=== PATIENT | female | born 1930 | race Caucasian/White ===

== ENCOUNTER → 2016-07-01 | Outpatient (CLI) | payer MEDICARE, OTHER ==
[~2016-07-01] MED LIST: ACHD5005 PO; AMOX-355 PO; AMOX-97 PO; AZIT250T5 PO; BENICAR; CARV3.12 PO; CEFD300C3 PO; CEFU250T PO; CEFU500T63 PO; CEPH-507 PO; CLIN-62 PO; CLINDAMYCIN; CODE118S2 PO; ESCI10TA55 PO; ESCI5TAB PO; ESCT10T PO; FAMO20TA5; FAMO20TA5 PO; FLUT16SP22; HYDR-1231 PO; IPRA3AMP INH; LISI1TAB10 PO; LOSA50TA36 PO; LOSA50TA6; METF500T4 PO; METFORMIN; METO-272 PO; METR500T PO; MTF500T PO; NF-ESOM40C PO; NF-METANX PO; NIA500ERT PO; NIAC125C3 PO; OLME1TAB22; PRD10T PO; SULF1TAB38 PO
--- OUTSIDE RECORDS SUMMARY | 2016-07-01 15:45 | XMS REPORT | Continuity of Care Document ---
Author Author [facility] Organization [facility] Address Unknown Phone Unavailable Care Team Providers Care Casing Tier Name Role Phone PCP Unavailable Source Comments Some departments are not documenting in the electronic medical record. If you do not see the information that you expected, contact Release of Information in the Health Information Management department at [phone] for further assistance in locating additional records.[facility] Active Allergies and Adverse Reactions Allergen Noted Date Severity Reactions Comments Levaquin 08/18/2012 UNKNOWN Vectrin 08/18/2012 UNKNOWN Current Medications Prescription Sig. Disp. Refills Start End Date Status Date Guar Gum (BENEFIBER Take 1 Packet by mouth Active CLEAR) Pack daily. carvedilol (COREG) 3.125 Take 3.125 mg by mouth Active mg tablet twice daily with meals. gabapentin (NEURONTIN) Take 100 mg by mouth Active 100 mg capsule three times daily. HYDROcodone/acetaminophen Take 1-2 Tabs by mouth Active (NORCO; VICODIN) 5-325 mg every 6 hours as needed. tablet meclizine (ANTIVERT) 25 Take 25 mg by mouth every Active mg tablet 8 hours as needed. l-methylfolate Take by mouth. Active yvcohpe-anvsnnnjg-2-phosp hate-methylcobalamin(+) (METANX) 3-35-2 mg tablet metformin-ER(+) Take 1,000 mg by mouth. Active (FORTAMET) 1,000 mg tablet predniSONE (DELTASONE) 20 Take 20 mg by mouth Active mg tablet daily. Active Problems Not on file Immunizations Name Dates Previously Given Next Due FLU VACCINE >3YO 03/03/2012 Pneumococcal Vaccine 04/19/2011 (23-Michelle Adult) Varicella-Zoster Vaccine 10/07/2011 (Shingles) Social History Tobacco Use Types Packs/Day Years Used Date Never Smoker Alcohol Use Drinks/Week oz/Week Comments No Last Filed Vital Signs Vital Sign Reading Time Taken Blood Pressure 150/70 04/06/2012 3:48 PM DAIRY CLERK Pulse 76 04/06/2012 3:48 PM DAIRY CLERK Temperature 36.5 C (97.7 F) 04/06/2012 3:48 PM DAIRY CLERK Respiratory Rate 16 04/06/2012 3:48 PM DAIRY CLERK Height - - Weight 74.844 kg (165 lb) 04/06/2012 3:48 PM DAIRY CLERK Body Mass Index - - Oxygen Saturation - - Plan of Care Health Maintenance Due Date Last Done Comments Physical (Comprehensive) 1939 Exam Pertussis Vaccine 1943 Tetanus Vaccine 1949 Breast Cancer Screening 1972 Osteoporosis Screening 1997 Prevnar/Pneumovax (#2) 04/19/2012 04/19/2011 Influenza Vaccine 01/31/2015 03/03/2012 Shingles Vaccine Completed 10/07/2011 Results from Last 3 Months Not on file
== END ==
LOC: RT 15:41
PROVIDERS: ATTEND Internal Medicine Critical Care Medicine
DX: R06.00 Dyspnea, unspecified (principal); R05 Cough
CPT/HCPCS: 94060; 94726; 94729

== ENCOUNTER → 2016-08-29 | Outpatient (CLI) | payer MEDICARE, OTHER ==
--- NOTE | 2016-08-29 13:57 | Diagnostic Imaging Report ---
PROCEDURE: CT chest without contrast. TECHNIQUE: Multiple contiguous axial images were obtained through the chest without the use of intravenous contrast. INDICATION: Cough. Comparison exam from 05/16/16. FINDINGS: The lungs demonstrate no significant consolidation. There are mild upper lobe predominant emphysema changes. There is minimal thickening in the intralobular interstitium in the lung bases. This may relate to scarring from prior pneumonia that appears to have near completely resolved compared to 05/16/2016. No lung mass or suspicious nodule. The heart size is normal. The thoracic aorta is normal in caliber. No mediastinal mass. No significantly enlarged lymph node is seen. No pleural or pericardial effusion. The sections of the upper abdomen appear grossly unremarkable. There are mild degenerative changes in the thoracic spine. IMPRESSION: Resolution of previously seen areas of consolidation from 05/16/2016 exam with minimal basilar intralobular septal thickening seen likely related to scarring. Dictated by: Dictated on workstation # [id number]
== END ==
LOC: RAD 10:56
PROVIDERS: ATTEND Internal Medicine Critical Care Medicine
DX: R06.00 Dyspnea, unspecified (principal); R05 Cough
CPT/HCPCS: 71250

== ENCOUNTER 2016-09-11 12:47 | Inpatient (IN) | payer MEDICARE, OTHER ==
[~2016-09-11] VITALS: Ht 157.5 cm; Wt 84.4 kg
[2016-09-11] VITALS (11 sets, daily range): BP systolic 80–148; BP diastolic 48–91
[~2016-09-11 12:47] MED LIST changes: -AZIT250T5 PO; -CEFD300C3 PO; -CODE118S2 PO; +ONDANSETRON 4 MG/2 ML (SDV) Z0FRAN ONE
[2016-09-11] MEDS ORDERED: NS IV 1000 ML 1,000 ML IV ONE ×3 (12:51→15:08)
[2016-09-11] MEDS ORDERED: DEXAMETHASONE PF 10 MG/ML (DECADRON) VIAL ONE (12:54)
[2016-09-11] MEDS ORDERED: RT-ALBUTEROL/IPRATROPIUM 3 ML (DUONEB) VIAL ONE ×3 (12:54→21:48)
[2016-09-11] MEDS ORDERED: methylPREDNISolone 125 MG (Solu-MEDROL) VIAL ONE (12:55)
[2016-09-11] MEDS ORDERED: DEXTROSE 50% 50 ML (IMS) SYR ONE (12:56)
[2016-09-11] MEDS ORDERED: RT-ALBUTEROL/IPRATROPIUM 3 ML (DUONEB) VIAL INH ONE ×2 (13:00→14:45)
[2016-09-11] MEDS ORDERED: ONDANSETRON 4 MG/2 ML (SDV) Z0FRAN IVP ONE ×2 (13:00→13:15)
[2016-09-11] MEDS ORDERED: methylPREDNISolone 125 MG (Solu-MEDROL) VIAL IVP ONE (13:00)
[2016-09-11] MEDS ORDERED: DEXAMETHASONE 4 MG/ML SDV (DECADRON) IH ONE (13:00)
[2016-09-11 13:09] LABS: ABG BASE EXCESS -4.1 MMOL/L (-2.5-2.5); ABG HCO3 21 MMOL/L (23-27); ABG OXYGEN SATURATION 93 % (94-100); ABG PCO2 40 MMHG (35-45); ABG PO2 64 MMHG (79-93); ABG TCO2 22.2 MMOL/L (21.0-31.0)
[2016-09-11 13:11] LABS: ABG PH 7.34 (7.37-7.43); ALLENS TEST YES-POS
[2016-09-11] MEDS ORDERED: SCOPOLAMINE 1.5 MG (TRANSDERM-SCOP) PATCH ONE (13:12)
[2016-09-11 13:14] LABS: BASOPHILS % (AUTO) 1 % (0-10); EOSINOPHILS # (AUTO) 0.1 10^3/uL (0.0-0.3); EOSINOPHILS % (AUTO) 1 % (0-10); LYMPHOCYTES # (AUTO) 1.4 X 10^3 (1.0-4.0); LYMPHOCYTES % (AUTO) 33 % (12-44); MEAN CORPUSCULAR HEMOGLOBIN 29 PG (25-34); MEAN CORPUSCULAR HGB CONC 32 G/DL (32-36); MEAN CORPUSCULAR VOLUME 90 FL (80-99); MEAN PLATELET VOLUME 9.9 FL (7.4-10.4); MONOCYTES % (AUTO) 1 % (0-12); NEUTROPHILS # (AUTO) 2.8 X 10^3 (1.8-7.8); NEUTROPHILS % (AUTO) 65 % (42-75); PLATELET COUNT 330 10^3/uL (130-400); RED BLOOD COUNT 5.35 10^6/uL (4.35-5.85); RED CELL DISTRIBUTION WIDTH 14.2 % (10.0-14.5); WHITE BLOOD COUNT 4.2 10^3/uL (4.3-11.0)
[2016-09-11 13:14] LABS: BILIRUBIN,URINE NEGATIVE (NEGATIVE); KETONES,URINE 1+ (NEGATIVE); LEUKOCYTE ESTERASE ,URINE 1+ (NEGATIVE); NITRITE,URINE NEGATIVE (NEGATIVE); PH,URINE 5 (5-9); PROTEIN,URINE 2+ (NEGATIVE); UROBILINOGEN,URINE 1 MG/DL (NORMAL)
[2016-09-11] MEDS ORDERED: SCOPOLAMINE 1.5 MG (TRANSDERM-SCOP) PATCH TD ONE (13:15)
[2016-09-11 13:17] LABS: PROTHROMBIN TIME PATIENT 12.6 SEC (12.2-14.7)
[2016-09-11 13:25] LABS: WBC,URINE 0-2 /HPF
[2016-09-11 13:27] LABS: ALANINE AMINOTRANSFERASE 13 U/L (0-55); ALBUMIN 3.8 G/DL (3.2-4.5); AMYLASE 71 U/L (25-125); ANION GAP 15 MMOL/L (5-14); ASPARTATE AMINO TRANSFERASE 17 U/L (5-34); BILIRUBIN,TOTAL 0.3 MG/DL (0.1-1.0); BLOOD UREA NITROGEN 19 MG/DL (7-18); BUN/CREATININE RATIO 19; CALCIUM 9.2 MG/DL (8.5-10.1); CARBON DIOXIDE 20 MMOL/L (21-32); CHLORIDE 106 MMOL/L (98-107); CREATINE KINASE 38 U/L (29-168); CREATININE SERUM 0.98 MG/DL (0.60-1.30); GFR ESTIMATED 54; GLUCOSE 121 MG/DL (70-105); LIPASE 20 U/L (8-78); MAGNESIUM 1.7 MG/DL (1.8-2.4); POTASSIUM 3.9 MMOL/L (3.6-5.0); SODIUM 141 MMOL/L (135-145); TOTAL PROTEIN 7.3 G/DL (6.4-8.2)
--- NOTE | 2016-09-11 13:34 | Diagnostic Imaging Report ---
Portable upright radiograph of the chest. INDICATION: Shortness of breath. FINDINGS: The lungs are hyperinflated with interstitial thickening likely chronic and without significant change from 05/22/2016. The heart size is at the upper limits of normal. No effusion or pneumothorax. The mediastinum and eda appear unremarkable. IMPRESSION: COPD. Dictated by: Dictated on workstation # [id number]
[2016-09-11 13:46] LABS: TROPONIN I < 0.30 NG/ML (<0.30)
[2016-09-11 14:10] LABS: ABG HCO3 20 MMOL/L (23-27); ABG OXYGEN SATURATION 97 % (94-100); ABG PCO2 38 MMHG (35-45); ABG PO2 86 MMHG (79-93); ABG TCO2 21.1 MMOL/L (21.0-31.0)
[2016-09-11 14:12] LABS: ABG PH 7.33 (7.37-7.43)
[2016-09-11 14:13] LABS: ALLENS TEST YES-POS; PATIENT TEMP 98.3
[2016-09-11] MEDS ORDERED: VANCOMYCIN INJECTION 1,000 MG in NS (IVPB) 250 ML IV ONE (14:30)
[2016-09-11] MEDS ORDERED: CATHETER FLUSH 10 ML SYR IV PRN (17:00)
[2016-09-11] MEDS ORDERED: VANCOMYCIN 750 MG/NS 250 ML IVPB IV NR ×2 (17:00)
[2016-09-11] MEDS: AZITHROMYCIN 500 MG/NS 250 ML IVPB IV SCH ×2 (17:06)
[2016-09-11] MEDS: D5 1/2 NS W/KCL 20 MEQ/L 1,000 ML IV SCH ×2 (17:06→23:52)
--- NOTE | 2016-09-11 17:14 | History & Physicial ---
History of Present Illness History of Present Illness Reason for visit/HPI PT IS AN 86 Y/O FEMALE WHO IS KNOWN TO ME FROM CLINIC. THE PATIENT REPORTS THAT SHE WAS FEELING CHILLED, AND FATIGUED AT HOME, STARTING TO HAVE ILLNESS SYMPTOMS. SHE CALLED HER DAUGHTER TO TELL HER SHE WAS NOT FEELING WELL. SHE THEN REPORTS THAT SHE STARTED TO FEEL NAUSEATED, AND HAD AN ACUTE EPISODE OF VOMITING AND DOESN'T REALLY REMEMBER A LOT AFTER THAT SHE SUSPECTS THAT SHE PASSED OUT. THE EMERGENCY DEPT PHYSICIAN REPORTS THAT [place] WAS MINIMALLY RESPONSIVE UPON ARRIVAL TO THE EMERGENCY DEPT. SHE HAD A LOW OXYGEN SATURATION, AND AFTER GETTING FLUIDS AND OXYGEN SHE STARTED TO BECOME MORE RESPONSIVE. Date of Admission Sep 11, 2016 at 14:15 I consulted on this patient on 09/11/16 17:08 Attending Physician Navarro Avina MD Admitting Physician Navarro Avina MD Consult Allergies and Home Medications Allergies Coded Allergies: amoxicillin (Verified Allergy, Intermediate, RASH, ITCHING, 02/28/16) ciprofloxacin (Verified Allergy, Intermediate, RASH, ITCHING, 02/28/16) Sulfa (Sulfonamide Antibiotics) (Verified Allergy, Unknown, 06/22/15) levofloxacin (Unverified Adverse Reaction, Mild, NAUSEA, 08/06/10) Home Medications Escitalopram Oxalate 10 Mg Tablet, 10 MG PO 1700, (Reported) Famotidine 20 Mg Tablet, 20 MG PO BID WITH MEALS, (Reported) Losartan Potassium 50 Mg Tablet, 50 MG PO DAILY, (Reported) Metformin HCl 500 Mg Tablet, 500 MG PO BID WITH MEALS, (Reported) Metoprolol Succinate 50 Mg Tab.er.24h, 50 MG PO HS, (Reported) Past Nofrbbo-Utnjdm-Xsmpos Hx Patient Social History Marrital Status: Living Status: LIVES AT HOME WITH SPOUSE AND GRANDSON Employed/Student: retired Alcohol Use: Denies Use Recreational Drug Use: No Smoking Status: Never a Smoker Former smoker/When Quit: Jun 02, 1985 2nd Hand Smoke Exposure: No Physical Abuse Screen: No Sexual Abuse: No Recent Foreign Travel: No Contact w/other who traveled: No Recent Hopitalizations: Yes (UTI 1 MONTH AGO) Recent Infectious Disease Expo: No Immunizations Up To Date Date of Pneumonia Vaccine: Jun 02, 2013 Date of Influenza Vaccine: May 21, 2016 Seasonal Allergies Seasonal Allergies: No Surgeries HX Surgeries: Yes (Hyterectomy 1961, Knee surgery 2007) Surgeries: Hysterectomy, Orthopedic Respiratory Hx Respiratory Disorders: Yes (WEARS HOME O2 AT [facility]) Respiratory Disorders: Pneumonia (RECURRENT) Cardiovascular Hx Cardiovascular Disorders: Yes (HX OF BBB) Cardiac Disorders: Hypertension Neurological Hx Neurological Disorders: No Neurological Disorders: Neuropathy Reproductive System Hx 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) Sexually Transmitted Disease: No HIV/AIDS: No Genitourinary Hx Genitourinary Disorders: No (UTI 1 MONTH AGO) Gastrointestinal Hx Gastrointestinal Disorders: No Musculoskeletal Hx Musculoskeletal Disorders: Yes Musculoskeletal Disorders: Arthritis Endocrine Hx Endocrine Disorders: Yes Endocrine Disorders: Diabetes, Non-Insulin dep HEENT HX ENT Disorders: Yes HEENT Disorders: Cataract Loss of Vision: Denies Hearing Impairment: Hard of Hearing Cancer Hx Cancer: Yes Cancer: Uterine Psychosocial Hx Psychiatric Problems: No Integumentary HX Skin/Integumentary Disorder: No Blood Transfusions Hx Blood Disorders: No Reviewed Nursing Assessment Reviewed/Agree w Nursing PMH: Yes Family Medical History Significant Family History: Heart Disease, Hypertension Constitutional: chills, fever, malaise, weakness EENTM: No hoarseness, No throat pain Respiratory: cough, dyspnea on exertion, phlegm, short of breath Cardiovascular: No chest pain, No edema Gastrointestinal: No abdominal pain, No constipation, No diarrhea Genitourinary: no symptoms reported Musculoskeletal: No back pain Skin: no symptoms reported Psychiatric/Neurological: Denies Anxiety, Denies Depressed All Other Systems Reviewed Negative Unless Noted: Yes Physical Exam Vital Signs Vital Sign - Last 12Hours 09/11/16 09/11/16 12:47 13:28 Temp 97.0 Pulse 74 Resp 20 B/P (MAP) 131/80 Pulse Ox 98 O2 Delivery Bi-pap O2 Flow Rate 5.00 FiO2 50 Capillary Refill : Greater Than 3 Seconds General Appearance: No Apparent Distress, WD/WN Eyes: Bilateral Eye EOMI, Bilateral Eye Normal Inspection, Bilateral Eye PERRL Neck: Supple Respiratory: Chest Non Tender, Crackles (UPPER RIGHT LUNG), Decreased Breath Sounds, Rhonci (THROUGHOUT), No Wheezing Cardiovascular: Regular Rate, Rhythm, No No Edema, No No Murmur Gastrointestinal: Normal Bowel Sounds, No Organomegaly, Non Tender, Soft Rectal: Deferred Extremity: Normal Capillary Refill, Normal Range of Motion, Non Tender, No Calf Tenderness, No Pedal Edema Neurologic/Psychiatric: Alert, Oriented x3, No Motor/Sensory Deficits, Normal 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 DIABETES MELLITUS - RESTART METFORMIN - MONITOR FSBS ACHS. HYPERTENSION - RESTART LOSARTAN - METOPROLOL, MONITOR PRESSURE. DEPRESSION - START [facility] DOES NOT HAVE LEXAPRO ON FORMULARY. DVT PROPHYLAXIS - SCD'S AND LOVENOX. GI PROPHYLAXIS WITH PANTOPRAZOLE Problems: Admission Diagnosis SEPSIS PNEUMONIA LACTIC ACIDOSIS COUGH EMESIS SUSPECTED ASPIRATION PNEUMONIA HYPOMAGNESEMIA DIABETES MELLITUS HYPERTENSION DEPRESSION NAVARRO AVINA MD Sep 11, 2016 17:14
[2016-09-11] MEDS: inSUlin (REGULAR) HUMAN 1 UNIT/0.01 ML (CHARGE PER UNIT) SC SCH ×2 (17:19→22:29)
[2016-09-11] MEDS ORDERED: ONDANSETRON 4 MG/2 ML (SDV) Z0FRAN IVP PRN (17:30)
[2016-09-11] MEDS: ENOXAPARIN 40 MG/0.4 ML (LOVENOX) SYR SC SCH (18:14)
[2016-09-11] MEDS: methylPREDNISolone 125 MG (Solu-MEDROL) VIAL IV SCH (18:14)
--- NOTE | 2016-09-11 18:56 | ED General ---
General Chief Complaint: Abdominal/GI Problems Stated Complaint: ASPIRATION PNEUMONIA;SYNCOPE;HYPROXIA Nursing Triage Note: PT BROUGHT IN BY FAMILY AFTER PT HAD N/V AT HOME AND BECAME WEAK AND NON COHERENT. UPON ARRIVAL TO ED PT IS WORTHY AND ALMOST UNRESPONSIVE. PT TAKEN TO ED ROOM 1 VIA CART AND PLACED ON STATION MECHANIC APPRENTICE AND OXYGEN. PT DAUGHTER REPORTS PT HAS BEEN VOMITING. Nursing Sepsis Screen: Severe Sepsis Risk Source of Information: Patient (LIMITED HISTORIAN DUE TO CLINICAL CONDITION), Family (DAUGHTER) History of Present Illness Time Seen by Provider: 12:46 Initial Comments PT ARRIVES VIA POV--MULTIPLE STAFF MEMBERS REQUIRED TO GET PT OUT OF VEHICLE SHE IS UNRESPONSIVE AND DUSKY ON ARRIVAL PT IS ASSISTED TO ER CART OUTSIDE OF VEHICLE, SHE BEGINS TO ROUSE PT HAS VOMITED PRIOR TO ARRIVAL DAUGHTER STATES THAT SHE WENT TO CHECK ON PT TODAY AND C/O HAVING CHILLS, AND WHEN SHE ARRIVED AT PT'S HOME, PT BEGAN TO VOMIT PT WAS ABLE TO AMBULATE WITH A WALKER TO THE CAR DAUGHTER STATES THAT SHE WAS DRIVING PAST THE MALL, PT BECAME UNRESPONSIVE, BRIEFLY ROUSED AND BECAME UNRESPONSIVE AGAIN NO HISTORY OF SIMILAR PT DOES HAVE CHRONIC COUGH AND FREQUENT PNEUMONIA, PER DAUGHTER ON ARRIVAL, PT IS PALE, DUSKY AND DIAPHORETIC AND MOANING PT IS ABLE TO ANSWER SOME QUESTIONS AND IS APPROPRIATE OTHER THAN HAVING GENERALIZED WEAKNESS. PT WITH AUDIBLE RHONCHI AND SUSPECT THAT PT HAS ASPIRATED. PCP: DR. OCONNELL Allergies and Home Medications Allergies Coded Allergies: amoxicillin (Verified Allergy, Intermediate, RASH, ITCHING, 02/28/16) ciprofloxacin (Verified Allergy, Intermediate, RASH, ITCHING, 02/28/16) Sulfa (Sulfonamide Antibiotics) (Verified Allergy, Unknown, 06/22/15) levofloxacin (Unverified Adverse Reaction, Mild, NAUSEA, 08/06/10) Home Medications Escitalopram Oxalate 10 Mg Tablet, 10 MG PO 1700, (Reported) Famotidine 20 Mg Tablet, 20 MG PO BID WITH MEALS, (Reported) Losartan Potassium 50 Mg Tablet, 50 MG PO DAILY, (Reported) Metformin HCl 500 Mg Tablet, 500 MG PO BID WITH MEALS, (Reported) Metoprolol Succinate 50 Mg Tab.er.24h, 50 MG PO HS, (Reported) Constitutional: see HPI Gastrointestinal: see HPI Psychiatric/Neurological: See HPI Past Klugxjf-Qrfosd-Sxatkv Hx Patient Social History Alcohol Use: Denies Use Recreational Drug Use: No Smoking Status: Never a Smoker Former Smoker/When Quit: Jun 02, 1985 2nd Hand Smoke Exposure: No Recent Foreign Travel: No Contact w/Someone Who Travel: No Recent Infectious Disease Expo: No Recent Hopitalizations: Yes (UTI 1 MONTH AGO) Physical Abuse Screen: No Sexual Abuse: No Immunizations Up To Date Date of Pneumonia Vaccine: May 02, 2016 Date of Influenza Vaccine: May 21, 2016 Seasonal Allergies Seasonal Allergies: No Surgeries HX Surgeries: Yes (Hyterectomy 1961, Knee surgery 2007) Surgeries: Hysterectomy, Orthopedic Respiratory Hx Respiratory Disorders: Yes (WEARS HOME O2 AT 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 Genitourinary Hx Genitourinary Disorders: No (UTI 1 MONTH AGO) Gastrointestinal Hx Gastrointestinal Disorders: No Musculoskeletal Hx Musculoskeletal Disorders: Yes Musculoskeletal Disorders: Arthritis Endocrine Hx Endocrine Disorders: Yes Endocrine Disorders: Diabetes, Non-Insulin dep HEENT HX ENT Disorders: Yes HEENT Disorders: Cataract Loss of Vision: Denies Hearing Impairment: Hard of Hearing Cancer Hx Cancer: Yes Cancer: Uterine Psychosocial Hx Psychiatric Problems: No Integumentary HX Skin/Integumentary Disorder: No Blood Transfusions Hx Blood Disorders: No Reviewed Nursing Assessment Reviewed/Agree w Nursing PMH: Yes Family Medical History Significant Family History: Hypertension Physical Exam Vital Signs Vital Sign - Last 12Hours 09/11/16 09/11/16 12:47 13:28 Temp 97.0 Pulse 74 Resp 20 B/P (MAP) 131/80 Pulse Ox 98 O2 Delivery Bi-pap O2 Flow Rate 5.00 FiO2 50 Capillary Refill : Less Than 3 Seconds General Appearance: Severe Distress, Other (DUSKY AND PALE, DIAPHORETIC, MOANING AND MINIMALLY RESPONSIVE IMMEDIATELY ON ARRIVAL, VERY LETHARGIC. ) Neck: Normal Inspection Respiratory: Accessory Muscle Use, Rales, Respiratory Distress, Rhonci ( DIFFUSE RALES/RHONCHI BILATERALLY, RIGHT > LEFT ) Cardiovascular: Regular Rate, Rhythm, No Murmur Gastrointestinal: Non Tender, Soft Back: No CVA Tenderness Extremity: Normal Range of Motion Neurologic/Psychiatric: Other ( ABOVE) Skin: Cool, Cyanosis, Diaphoresis, Pallor Focused Exam Lactic Acid Level Laboratory Tests Test 09/11/16 15:45 Lactic Acid Level 2.26 MMOL/L (0.50-2.00) *H Progress/Results/Core Measures Results/Orders Lab Results Laboratory Tests Test 09/11/16 12:52 09/11/16 12:58 09/11/16 13:03 09/11/16 13:05 Range/Units White Blood Count 4.2 L 4.3-11.0 10^3/uL Red Blood Count 5.35 4.35-5.85 10^6/uL Hemoglobin 15.6 11.5-16.0 G/DL Hematocrit 48 35-52 % Mean Corpuscular Volume 90 80-99 FL Mean Corpuscular Hemoglobin 29 25-34 PG Mean Corpuscular Hemoglobin Concent 32 32-36 G/DL Red Cell Distribution Width 14.2 10.0-14.5 % Platelet Count 330 130-400 10^3/uL Mean Platelet Volume 9.9 7.4-10.4 FL Neutrophils (%) (Auto) 65 42-75 % Lymphocytes (%) (Auto) 33 12-44 % Monocytes (%) (Auto) 1 0-12 % Eosinophils (%) (Auto) 1 0-10 % Basophils (%) (Auto) 1 0-10 % Neutrophils # (Auto) 2.8 1.8-7.8 X 10^3 Lymphocytes # (Auto) 1.4 1.0-4.0 X 10^3 Monocytes # (Auto) 0.0 0.0-1.0 X 10^3 Eosinophils # (Auto) 0.1 0.0-0.3 10^3/uL Basophils # (Auto) 0.0 0.0-0.1 10^3/uL Prothrombin Time 12.6 12.2-14.7 SEC INR Comment 1.0 0.8-1.4 Activated Partial Thromboplast Time 25 24-35 SEC Sodium Level 141 135-145 MMOL/L Potassium Level 3.9 3.6-5.0 MMOL/L Chloride Level 106 98-107 MMOL/L Carbon Dioxide Level 20 L 21-32 MMOL/L Anion Gap 15 H 5-14 MMOL/L Blood Urea Nitrogen 19 H 7-18 MG/DL Creatinine 0.98 0.60-1.30 MG/DL Estimat Glomerular Filtration Rate 54 BUN/Creatinine Ratio 19 Glucose Level 121 H 70-105 MG/DL Lactic Acid Level 5.14 *H 0.50-2.00 MMOL/L Calcium Level 9.2 8.5-10.1 MG/DL Magnesium Level 1.7 L 1.8-2.4 MG/DL Total Bilirubin 0.3 0.1-1.0 MG/DL Aspartate Amino Transf (AST/SGOT) 17 5-34 U/L Alanine Aminotransferase (ALT/SGPT) 13 0-55 U/L Alkaline Phosphatase 73 40-136 U/L Total Creatine Kinase 38 29-168 U/L Creatine Kinase MB 1.1 <6.6 NG/ML Troponin I < 0.30 <0.30 NG/ML B-Type Natriuretic Peptide 86.5 <100.0 PG/ML Total Protein 7.3 6.4-8.2 G/DL Albumin 3.8 3.2-4.5 G/DL Amylase Level 71 25-125 U/L Lipase 20 8-78 U/L TSH Rawson Testing 4.46 0.35-4.94 UIU/ML Glucometer 80 70-110 MG/DL Blood Gas Puncture Site RT BRACHIAL Blood Gas Patient Temperature 97.0 Arterial Blood pH 7.34 *L 7.37-7.43 Arterial Blood Partial Pressure CO2 40 35-45 MMHG Arterial Blood Partial Pressure O2 64 L 79-93 MMHG Arterial Blood HCO3 21 L 23-27 MMOL/L Arterial Blood Total CO2 22.2 21.0-31.0 MMOL/L Arterial Blood Oxygen Saturation 93 L 94-100 % Arterial Blood Base Excess -4.1 L -2.5-2.5 MMOL/L Carl Test YES-POS Blood Gas Ventilator Setting NO Blood Gas Inspired Oxygen 15 Urine Color YELLOW Urine Clarity CLEAR Urine pH 5 5-9 Urine Specific [place] 1.025 H 1.016-1.022 Urine Protein 2+ H NEGATIVE Urine Glucose (UA) NEGATIVE NEGATIVE Urine Ketones 1+ H NEGATIVE Urine Nitrite NEGATIVE NEGATIVE Urine Bilirubin NEGATIVE NEGATIVE Urine Urobilinogen 1 NORMAL MG/DL Urine Leukocyte Esterase 1+ H NEGATIVE Urine RBC (Auto) NEGATIVE NEGATIVE Urine RBC NONE /HPF Urine WBC 0-2 /HPF Urine Squamous Epithelial Cells 2-5 /HPF Urine Crystals NONE /LPF Urine Bacteria FEW H /HPF Urine Casts NONE /LPF Urine Mucus SMALL H /LPF Urine Culture Indicated NO Test 09/11/16 14:05 4/12/17 15:45 09/11/16 17:13 Range/Units Blood Gas Puncture Site LT BRACHIAL Blood Gas Patient Temperature 98.3 Arterial Blood pH 7.33 *L 7.37-7.43 Arterial Blood Partial Pressure CO2 38 35-45 MMHG Arterial Blood Partial Pressure O2 86 79-93 MMHG Arterial Blood HCO3 20 L 23-27 MMOL/L Arterial Blood Total CO2 21.1 21.0-31.0 MMOL/L Arterial Blood Oxygen Saturation 97 94-100 % Arterial Blood Base Excess -5.0 L -2.5-2.5 MMOL/L Carl Test YES-POS Blood Gas Ventilator Setting NO Blood Gas Inspired Oxygen 50% Lactic Acid Level 2.26 *H 0.50-2.00 MMOL/L Glucometer 146 H 70-110 MG/DL My Orders Orders - BROOKE RAMOS DO Ondansetron Injection (Zofran Injectio (09/11/16 12:47) Albuterol/Ipra Inhalation Soln (Duoneb I (09/11/16 12:54) Dexamethasone Pf Injection (Decadron Pf (09/11/16 12:54) Methylprednisolone Sod Succ (Solu-Medrol (09/11/16 12:55) D50w (Emergency) Syringe (Dextrose 50% 5 (09/11/16 12:56) Saline Lock/Iv-Start (09/11/16 12:51) Ekg Tracing (09/11/16 12:51) Catheter(Urinary) Insert & Ass 03,15 (09/11/16 12:51) O2 (09/11/16 12:51) Monitor-Rhythm Ecg Trace Only (09/11/16 12:51) Amylase (09/11/16 12:51) Arterial Blood Gas (09/11/16 12:51) BNP (09/11/16 12:51) Cbc With Automated Diff (09/11/16 12:51) Comprehensive Metabolic Panel (09/11/16 12:51) Creatine Kinase (09/11/16 12:51) Creatine Kinase Mb (09/11/16 12:51) Lactic Acid Analyzer (09/11/16 12:51) Lipase (09/11/16 12:51) Magnesium (09/11/16 12:51) Protime With Inr (09/11/16 12:51) Partial Thromboplastin Time (09/11/16 12:51) Thyroid Analyzer (09/11/16 12:51) Troponin I (09/11/16 12:51) Ua Culture If Indicated (09/11/16 12:51) Blood Culture (09/11/16 12:51) Influenza A And B Antigens (09/11/16 12:51) Chest 1 View, Ap/Pa Only (09/11/16 12:51) Albuterol/Ipra Inhalation Soln (Duoneb I (09/11/16 13:00) Dexamethasone Injection (Decadron Inject (09/11/16 13:00) Rt Request For Service (09/11/16 12:51) Saline Lock/Iv-Start (09/11/16 12:51) Ns Iv 1000 Ml (Sodium Chloride 0.9%) (09/11/16 12:51) Ondansetron Injection (Zofran Injectio (09/11/16 13:00) Svn Sm Volume Nebulizer Rt-Rfs (09/11/16 12:51) Methylprednisolone Sod Succ (Solu-Medrol (09/11/16 13:00) Accucheck Stat ONCE (09/11/16 12:51) Ondansetron Injection (Zofran Injectio (09/11/16 13:15) Scopolamine Patch (Transderm-Scop Patch) (09/11/16 13:15) Scopolamine Patch (Transderm-Scop Patch) (09/11/16 13:12) Ekg Tracing (09/11/16 13:24) Arterial Blood Gas (09/11/16 14:03) Vancomycin Injection (Vancomycin Injecti (09/11/16 14:30) Albuterol/Ipra Inhalation Soln (Duoneb I (09/11/16 14:45) Svn Sm Volume Nebulizer Rt-Rfs (09/11/16 14:43) Saline Lock/Iv-Start (09/11/16 14:43) Ns Iv 1000 Ml (Sodium Chloride 0.9%) (09/11/16 14:43) Ns Iv 1000 Ml (Sodium Chloride 0.9%) (09/11/16 15:08) Medications Given in ED Current Medications Medications Dose Ordered Sig/Lidia Route Start Time Stop Time Status Last Admin Dose Admin Albuterol/ Ipratropium 3 ml ONCE ONCE INH 09/11/16 13:00 09/11/16 13:04 DC 09/11/16 13:03 3 ML Dexamethasone Sodium Phosphate 10 mg STK-MED ONCE .ROUTE 09/11/16 12:54 09/11/16 12:58 DC 09/11/16 13:06 20 MG Dextrose 50 ml STK-MED ONCE .ROUTE 09/11/16 12:56 09/11/16 13:00 DC 09/11/16 13:00 50 ML Methylprednisolone Sodium Succinate 125 mg ONCE ONCE IVP 09/11/16 13:00 09/11/16 13:04 DC 09/11/16 12:58 125 MG Ondansetron HCl 8 mg ONCE ONCE IVP 09/11/16 13:00 09/11/16 13:04 DC 09/11/16 12:53 8 MG Ondansetron HCl 8 mg ONCE ONCE IVP 09/11/16 13:15 09/11/16 13:16 DC 09/11/16 13:15 8 MG Scopolamine 1.5 mg ONCE ONCE TD 09/11/16 13:15 09/11/16 13:16 DC 09/11/16 13:15 1.5 MG Sodium Chloride 1,000 ml @ 0 mls/hr Q0M ONCE IV 09/11/16 12:51 09/11/16 13:04 DC 09/11/16 12:55 0 MLS/HR Vital Signs/I&O Vital Sign - Last 12Hours 09/11/16 09/11/16 09/11/16 09/11/16 12:47 12:47 13:03 13:12 Temp 97.0 Pulse 74 73 Resp 20 27 B/P (MAP) 131/80 Pulse Ox 98 82 96 99 O2 Delivery Bi-pap Nasal Cannula O2 Flow Rate 5.00 15.00 50.00 09/11/16 09/11/16 09/11/16 09/11/16 13:28 15:01 16:00 16:25 Temp 97.0 95.9 Pulse 92 99 97 Resp 29 20 20 B/P (MAP) 148/91 Pulse Ox 99 99 99 98 O2 Delivery NIV Bilevel O2 Flow Rate 50.00 50.00 40.00 FiO2 50 09/11/16 09/11/16 09/11/16 09/11/16 16:39 17:45 18:00 18:00 Pulse 98 100 96 Resp 20 18 19 B/P (MAP) 103/76 89/66 Pulse Ox 98 97 95 97 O2 Delivery NIV Bilevel NIV Bilevel O2 Flow Rate 40.00 40.00 40.00 FiO2 40 Blood Pressure Mean: 74 Point of Care Testing Finger Stick Blood Glucose: 80 Progress Note : Progress Note O2 SAT 80-84% ON ARRIVAL PT GIVEN NEB TREATMENTS AND PLACED ON BIPAP WITH SIGNIFICANT IMPROVEMENT IN LUNG SOUNDS AND O2 SATS UP TO 100% BP BEGAN TO DROP AND PT GIVEN FLUID BOLUS WITH IMPROVEMENT IN BLOOD PRESSURE NO FURTHER DETERIORATION PT'S CONDITION AND VITALS STABLE AT TIME OF ADMIT. PT STATES SHE DOES NOT WANT TO BE INTUBATED OR ON A VENTILATOR, BUT DOES WANT CPR ECG Initial ECG Impression Time: 12:50 Initial ECG Rate: 67 Initial ECG Rhythm: Normal Sinus (LBBB) Initial ECG Comparisson: No Previous ECG Available EKG : EKG Time: 13:20 Rate: 83 Rhythm: Normal Sinus (LBBB, PVC) Diagnostic Imaging Comments CXR--COPD, CHRONIC CHANGES--PER RADIOLOGIST REPORT @ 1337 Reviewed: Reviewed by Me Critical Care Note Critical Care Total Time (minutes) 30 Departure Communication Progress Notes 1412--SPOKE WITH DR. OCONNELL, ACCEPTS PT FOR ADMIT. Impression Impression: Primary Impression: Aspiration pneumonia Additional Impressions: Syncope Hypoxia Hypotension Severe sepsis Lactic acidosis Disposition: 09 ADMITTED INPATIENT Condition: Improved Decision to Admit Reason: Admit from ER (General) Decision to Admit/Date: Sep 11, 2016 Time/Decision to Admit Time: 14:15 Departure-Patient Inst. Referrals: NAVARRO OCONNELL MD (PCP) Primary Care Physician BROOKE RAMOS DO Sep 11, 2016 18:56
[2016-09-11] MEDS ORDERED: inSUlin (REGULAR) HUMAN 1 UNIT/0.01 ML (CHARGE PER UNIT) SC SCH (21:00)
[2016-09-11] MEDS: meTOproloL SUCCINATE 50 MG (TOPROL XL) TAB PO SCH (21:35)
[2016-09-11] MEDS ORDERED: RT-ALBUTEROL/IPRATROPIUM 3 ML (DUONEB) VIAL INH PRN (22:00)
[2016-09-12] VITALS (15 sets, daily range): BP systolic 84–149; BP diastolic 42–78
[2016-09-12] MEDS: methylPREDNISolone 125 MG (Solu-MEDROL) VIAL IV SCH (00:02)
[2016-09-12] MEDS: RT-ALBUTEROL/IPRATROPIUM 3 ML (DUONEB) VIAL INH SCH ×6 (02:34→21:24)
[2016-09-12 04:58] LABS: BASOPHILS % (AUTO) 0 % (0-10); EOSINOPHILS % (AUTO) 0 % (0-10); LYMPHOCYTES # (AUTO) 0.4 X 10^3 (1.0-4.0); LYMPHOCYTES % (AUTO) 2 % (12-44); MEAN CORPUSCULAR HEMOGLOBIN 29 PG (25-34); MEAN CORPUSCULAR HGB CONC 32 G/DL (32-36); MEAN CORPUSCULAR VOLUME 91 FL (80-99); MEAN PLATELET VOLUME 9.9 FL (7.4-10.4); MONOCYTES # (AUTO) 0.9 X 10^3 (0.0-1.0); MONOCYTES % (AUTO) 4 % (0-12); NEUTROPHILS # (AUTO) 19.5 X 10^3 (1.8-7.8); NEUTROPHILS % (AUTO) 94 % (42-75); PLATELET COUNT 233 10^3/uL (130-400); RED BLOOD COUNT 4.66 10^6/uL (4.35-5.85); RED CELL DISTRIBUTION WIDTH 14.5 % (10.0-14.5)
[2016-09-12 05:18] LABS: ALBUMIN 2.9 G/DL (3.2-4.5); BILIRUBIN,TOTAL 0.3 MG/DL (0.1-1.0); CALCIUM 7.3 MG/DL (8.5-10.1); CREATININE SERUM 1.2 MG/DL (0.60-1.30); TOTAL PROTEIN 5.6 G/DL (6.4-8.2)
[2016-09-12 05:34] LABS: POTASSIUM 5.2 MMOL/L (3.6-5.0)
[2016-09-12 05:54] LABS: BAND NEUTROPHILS 26 %; BASOPHILS % (MANUAL) 0 %; EOSINOPHILS % (MANUAL) 0 %; LYMPHOCYTES % (MANUAL) 1 %; NEUTROPHILS % (MANUAL) 71 %
[2016-09-12] MEDS ORDERED: MAGNESIUM 1 GM/100 ML IVPB 100 ML IV SCH (06:00)
[2016-09-12] MEDS ORDERED: POTASSIUM CL 10MEQ/50ML IVPB 50 ML IV SCH (06:00)
[2016-09-12] MEDS ORDERED: KCL 20 MEQ TAB (K-DUR) PO SCH (06:00)
[2016-09-12 06:12] LABS: WHITE BLOOD COUNT 20.8 10^3/uL (4.3-11.0)
[2016-09-12] MEDS ORDERED: FAMOTIDINE 20 MG (PEPCID) TABLET PO SCH ×2 (07:00)
[2016-09-12] MEDS: NS IV 1000 ML 1,000 ML IV SCH ×3 (07:05→23:28)
[2016-09-12] MEDS: MAGNESIUM 1 GM/100 ML IVPB 100 ML IV SCH ×4 (07:05→11:46)
[2016-09-12] MEDS: metFORMIN 500 MG (GLUCOPHAGE) TAB PO SCH ×2 (07:05→17:13)
[2016-09-12] MEDS: inSUlin (REGULAR) HUMAN 1 UNIT/0.01 ML (CHARGE PER UNIT) SC SCH ×4 (07:06→20:43)
--- NOTE | 2016-09-12 07:16 | Diagnostic Imaging Report ---
INDICATION: Aspiration pneumonia. 0447 hours. Portable upright view of the chest is obtained. Comparison is made to study of 09/11/2016. There is suboptimal inspiration on the current study. Prominence of interstitial markings persists. There has been development of parahilar atelectasis, bilaterally. No pneumothorax is seen. Advanced degenerative changes are seen in the shoulders. IMPRESSION: Hypoventilation with developing parahilar atelectasis. Dictated by: Dictated on workstation # [id number]
[2016-09-12] MEDS: LOSARTAN 50 MG (COZAAR) TAB PO SCH (08:06)
[2016-09-12] MEDS: PANTOPRAZOLE 40 MG/10 ML (PROTONIX) VIAL IV SCH (08:14)
[2016-09-12] MEDS: aCETylcysteine 20% (MUCOMYST) 30ML SOLN VIAL INH SCH ×3 (09:30→21:24)
--- NOTE | 2016-09-12 09:32 | Progress Note (SOAP) ---
Subjective Subjective/Events-last exam PT REPORTS STILL SHORT OF BREATH, STILL COUGHING, HAD A ROUGHT NIGHT OF COUGHING LAST NIGHT. Review of Systems General: Fatigue, Malaise HEENT: No Head Aches Pulmonary: Dyspnea, Cough Cardiovascular: No: Chest Pain Genitourinary: No Dysuria Neurological: Weakness Objective Exam Vital Signs Date Time Temp Pulse Resp B/P (MAP) Pulse Ox O2 Delivery O2 Flow Rate FiO2 09/12/16 08:40 98.0 80 25 133/68 96 High Flow N/C 6.00 09/12/16 06:43 95 6.00 09/12/16 06:00 73 15 122/50 95 High Flow N/C 6.00 09/12/16 05:00 68 21 84/58 95 High Flow N/C 6.00 09/12/16 04:00 71 19 104/55 94 High Flow N/C 6.00 09/12/16 04:00 98.1 09/12/16 04:00 94 High Flow NC 6.00 09/12/16 03:00 80 23 98/69 94 High Flow N/C 6.00 09/12/16 02:34 94 6.00 09/12/16 02:00 87 21 103/55 93 High Flow N/C 6.00 09/12/16 01:12 67 20 113/56 95 High Flow N/C 6.00 09/12/16 01:00 67 09/12/16 00:00 97.5 83 24 93/48 95 High Flow N/C 6.00 09/12/16 00:00 94 High Flow NC 6.00 09/11/16 23:00 90 19 101/58 94 High Flow N/C 6.00 09/11/16 22:12 91 6.00 09/11/16 22:00 96 23 102/89 95 High Flow N/C 6.00 09/11/16 21:00 92 25 91/48 95 High Flow N/C 6.00 09/11/16 20:00 94 High Flow NC 6.00 09/11/16 20:00 98.8 98 21 100/54 95 High Flow N/C 6.00 09/11/16 19:05 96 6.00 09/11/16 19:05 96 09/11/16 19:00 101 09/11/16 19:00 101 26 123/78 93 High Flow N/C 6.00 09/11/16 18:57 97 6.00 09/11/16 18:00 97 40 09/11/16 18:00 96 19 89/66 95 NIV Bilevel 40.00 09/11/16 17:45 100 18 103/76 97 NIV Bilevel 40.00 09/11/16 16:39 98 20 98 40.00 09/11/16 16:25 95.9 97 20 148/91 98 NIV Bilevel 40.00 09/11/16 16:00 97.0 99 20 99 50.00 09/11/16 15:01 92 29 99 50.00 09/11/16 13:28 99 50 09/11/16 13:12 73 27 99 50.00 09/11/16 13:03 96 15.00 09/11/16 12:47 97.0 74 20 131/80 82 Nasal Cannula 5.00 09/11/16 12:47 98 Bi-pap I & O 09/12/16 07:00 Intake Total 5500 ml Output Total 450 ml Balance 5050 ml Capillary Refill : Less Than 3 Seconds General Appearance: No Apparent Distress, WD/WN HEENT: PERRL/EOMI, Pharynx Normal Neck: Full Range of Motion, Supple Respiratory: Chest Non Tender, Crackles, Decreased Breath Sounds Cardiovascular: Regular Rate, Rhythm Gastrointestinal: normal bowel sounds, non tender, soft, no organomegaly, no pulsatile mass Extremity: Normal Capillary Refill, No Pedal Edema Neurologic/Psychiatric: Alert, Oriented x3, No Motor/Sensory Deficits Skin: Normal Color, Warm/Dry Lymphatic: No Adenopathy Results Lab Laboratory Tests 09/11/16 12:52: White Blood Count 4.2L, Red Blood Count 5.35, Hemoglobin 15.6, Hematocrit 48, Mean Corpuscular Volume 90, Mean Corpuscular Hemoglobin 29, Mean Corpuscular Hemoglobin Concent 32, Red Cell Distribution Width 14.2, Platelet Count 330, Mean Platelet Volume 9.9, Neutrophils (%) (Auto) 65, Lymphocytes (%) (Auto) 33, Monocytes (%) (Auto) 1, Eosinophils (%) (Auto) 1, Basophils (%) (Auto) 1, Neutrophils # (Auto) 2.8, Lymphocytes # (Auto) 1.4, Monocytes # (Auto) 0.0, Eosinophils # (Auto) 0.1, Basophils # (Auto) 0.0, Prothrombin Time 12.6, INR Comment 1.0, Activated Partial Thromboplast Time 25, Sodium Level 141, Potassium Level 3.9, Chloride Level 106, Carbon Dioxide Level 20L, Anion Gap 15H , Blood Urea Nitrogen 19H, Creatinine 0.98, Estimat Glomerular Filtration Rate 54, BUN/Creatinine Ratio 19, Glucose Level 121H, Lactic Acid Level 5.14*H, Calcium Level 9.2, Magnesium Level 1.7L, Total Bilirubin 0.3, Aspartate Amino Transf (AST/SGOT) 17, Alanine Aminotransferase (ALT/SGPT) 13, Alkaline Phosphatase 73, Total Creatine Kinase 38, Creatine Kinase MB 1.1, Troponin I < 0.30, B-Type Natriuretic Peptide 86.5, Total Protein 7.3, Albumin 3.8, Amylase Level 71, Lipase 20, TSH [place] Testing 4.46 09/11/16 12:58: Glucometer 80 09/11/16 13:03: Blood Gas Puncture Site RT BRACHIAL, Blood Gas Patient Temperature 97.0, Arterial Blood pH 7.34*L, Arterial Blood Partial Pressure CO2 40, Arterial Blood Partial Pressure O2 64L, Arterial Blood HCO3 21L, Arterial Blood Total CO2 22.2, Arterial Blood Oxygen Saturation 93L, Arterial Blood Base Excess -4.1L , Carl Test YES-POS, Blood Gas Ventilator Setting NO, Blood Gas Inspired Oxygen 15 09/11/16 13:05: Urine Color YELLOW, Urine Clarity CLEAR, Urine pH 5, Urine Specific [place] 1.025H, Urine Protein 2+H, Urine Glucose (UA) NEGATIVE, Urine Ketones 1+H, Urine Nitrite NEGATIVE, Urine Bilirubin NEGATIVE, Urine Urobilinogen 1, Urine Leukocyte Esterase 1+H, Urine RBC (Auto) NEGATIVE, Urine RBC NONE, Urine WBC 0-2 , Urine Squamous Epithelial Cells 2-5, Urine Crystals NONE, Urine Bacteria FEWH , Urine Casts NONE, Urine Mucus SMALLH, Urine Culture Indicated NO 09/11/16 14:05: Blood Gas Puncture Site LT BRACHIAL, Blood Gas Patient Temperature 98.3, Arterial Blood pH 7.33*L, Arterial Blood Partial Pressure CO2 38, Arterial Blood Partial Pressure O2 86, Arterial Blood HCO3 20L, Arterial Blood Total CO2 21.1, Arterial Blood Oxygen Saturation 97, Arterial Blood Base Excess -5.0L, Carl Test YES-POS, Blood Gas Ventilator Setting NO, Blood Gas Inspired Oxygen 50% 09/11/16 15:45: Lactic Acid Level 2.26*H 09/11/16 17:13: Glucometer 146H 09/11/16 22:18: Glucometer 268H 09/12/16 04:15: White Blood Count 20.8H, Red Blood Count 4.66, Hemoglobin 13.7, Hematocrit 43, Mean Corpuscular Volume 91, Mean Corpuscular Hemoglobin 29, Mean Corpuscular Hemoglobin Concent 32, Red Cell Distribution Width 14.5, Platelet Count 233, Mean Platelet Volume 9.9, Neutrophils (%) (Auto) 94H, Lymphocytes (%) (Auto) 2L , Monocytes (%) (Auto) 4, Eosinophils (%) (Auto) 0, Basophils (%) (Auto) 0, Neutrophils # (Auto) 19.5H, Lymphocytes # (Auto) 0.4L, Monocytes # (Auto) 0.9, Eosinophils # (Auto) 0.0, Basophils # (Auto) 0.0, Neutrophils % (Manual) 71, Lymphocytes % (Manual) 1, Monocytes % (Manual) 2, Eosinophils % (Manual) 0, Basophils % (Manual) 0, Band Neutrophils 26, Toxic Granulation 1+, Blood Morphology Comment NORMAL, Sodium Level 138, Potassium Level 5.2H, Chloride Level 112H, Carbon Dioxide Level 12L, Anion Gap 14, Blood Urea Nitrogen 21H, Creatinine 1.20, Estimat Glomerular Filtration Rate 43, BUN/Creatinine Ratio 18 , Glucose Level 336H, Calcium Level 7.3L, Total Bilirubin 0.3, Aspartate Amino Transf (AST/SGOT) 19, Alanine Aminotransferase (ALT/SGPT) 15, Alkaline Phosphatase 46, Total Protein 5.6L, Albumin 2.9L 09/12/16 06:02: Magnesium Level 1.2L Assessment/Plan Assessment/Plan Assess & Plan/Chief Complaint SEPSIS PNEUMONIA LACTIC ACIDOSIS COUGH EMESIS SUSPECTED ASPIRATION PNEUMONIA HYPOMAGNESEMIA DIABETES MELLITUS HYPERTENSION DEPRESSION SEPSIS WITH LACTIC ACIDOSIS - DUE TO HYPOXEMIA FROM SUSPECTED ASPIRATION PNEUMONIA PNEUMONIA - ON SEPSIS PROTOCOL WITH DUAL ANTIBIOTICS EMESIS - ZOFRAN IV PRN HYPOMAGNESEMIA - REPLACEMENT PROTOCOL. DIABETES MELLITUS - RESTARTED METFORMIN - MONITOR FSBS ACHS. HYPERTENSION - RESTARTED LOSARTAN - METOPROLOL, MONITOR PRESSURE. DEPRESSION - STARTED [facility] DOES NOT HAVE LEXAPRO ON FORMULARY. DVT PROPHYLAXIS - SCD'S AND LOVENOX. GI PROPHYLAXIS WITH PANTOPRAZOLE - DISCUSSED WITH DR. SAN - CONCERN FOR ESOPHAGEAL REFLUX CAUSING ASPIRATION - HOSPITAL DOES NOT DO ESOPHAGEAL MANOMETRY Clinical Quality Measures DVT/VTE Risk/Contraindication: Risk Factor Score Per Nursin RFS Level Per Nursing on Admit: 4+=Very High NAVARRO OCONNELL MD Sep 12, 2016 09:32
[2016-09-12] MEDS ORDERED: CATHETER FLUSH 10 ML SYR IV PRN (10:00)
[2016-09-12] MEDS ORDERED: NS 100 ML (IVPB) BAG IV ONE (10:00)
[2016-09-12] MEDS ORDERED: IOHEXOL 350 MG/ML 100 ML (OMNIPAQUE 350) VIAL IV ONE (10:00)
--- NOTE | 2016-09-12 12:46 | Diagnostic Imaging Report ---
PROCEDURE: CT of the chest and pelvis with contrast and CT of the abdomen with and without contrast. TECHNIQUE: Precontrast acquisitions were acquired through the abdomen. Multiple contiguous axial images were obtained through the chest, abdomen and pelvis after administration of intravenous contrast. INDICATION: Recurrent pneumonia. 75 mL Omnipaque 350 is administered intravenously. COMPARISON: CT chest of 08/29/2016, is reviewed. FINDINGS: CT chest: There is left lower lobe consolidation concerning for pneumonia. There is small bilateral effusion. Atelectasis in the right lower lobe is seen. Slight breathing motion artifact could obscure fine details in the lungs with overall diagnostic quality of the exam for particularly significant abnormalities preserved. There are mildly enlarged lymph nodes seen in the mediastinum and left hilum up to 1 cm in short-axis likely reactive. The heart size is within normal limits. No pericardial effusion. There are no axillary significantly enlarged lymph nodes. The osseous structures demonstrate mild degenerative changes in the thoracic spine. CT abdomen and pelvis: The liver demonstrates mild fatty infiltration with no focal lesion seen. The gallbladder demonstrates no calcified stones. There is unremarkable appearance of the spleen, the adrenals, and the pancreas with no definite abnormality. Mild motion artifact is seen in the upper abdomen on this exam. The kidneys have symmetric enhancement and contrast excretion. There is no hydronephrosis. A Dangelo catheter is seen in place. The unenhanced phase demonstrates no kidney stones. There is no significant free fluid or fluid collection in the abdomen or pelvis. The urinary bladder is decompressed with a Dangelo catheter. Hysterectomy changes are seen. There is moderate amount of fecal material in the colon and rectum. No evidence of bowel obstruction. The stomach and proximal small bowel loops are slightly distended however. Correlate clinically. There is diverticulosis with no evidence of diverticulitis. Most of the diverticula are in the sigmoid colon. The abdominal aorta is normal in caliber. No paraaortic significantly enlarged lymph node is seen. No pelvic lymphadenopathy is identified. The osseous structures demonstrate degenerative changes in the lower lumbar spine. IMPRESSION: CT chest: Left lower lobe consolidation concerning for pneumonia. There are bilateral small pleural effusions. There is associated mild atelectasis in the lower lobes. Consider possibility of pulmonary vascular congestion and fluid overload. CT abdomen and pelvis: 1. Diverticulosis. No diverticulitis. 2. There is nonspecific slight distention of the stomach and proximal small bowel. Dictated by: Dictated on workstation # [id number]
--- NOTE | 2016-09-12 14:15 | Physical Therapy Evaluation ---
PT Evaluation-General Medical Diagnosis Admission Date Sep 11, 2016 at 14:15 Medical Diagnosis: aspiration pneumonia Onset Date: Sep 11, 2016 Therapy Diagnosis Therapy Diagnosis: generalized debility and weakness Height/Weight Height (Feet): 5 Height (Inches): 2.00 Weight (Pounds): 192 Weight (Ounces): 1.0 Precautions Precautions/Isolations: Fall Prevention, Standard Precautions Referral Physician: Kailyn Reason for Referral: Evaluation/Treatment Medical History Pertinent Medical History: Arthritis, DM, HTN, Neuropathy Additional Medical History sepsis Current History chilled and fatigued at home with N&V with LOC and decreased SAO2 Reviewed History: Yes Social History Home: Single Level Prior/Core FIM Prior Level of Function Functional [place] Measure 0=Not Assessed/NA 4=Minimal Assistance 1=Total Assistance 5=Supervision or Setup 2=Maximal Assistance 6=Modified [place] 3=Moderate Assistance 7=Complete [place] Bed Mobility: 6 Transfers (B,C,W/C) (FIM): 6 Gait: 6 PT Evaluation-Current Subjective Patient agrees to PT. Patient does c/o of fatigue at this time. Pain Numeric Pain Scale: 0-No Pain Location: No Pain Reported Objective Patient Orientation: Normal For Age Problem Solving: Good Attachments: Oxygen, Dangelo Catheter, IV ROM/Strength ROM Lower Extremities bilateral LE WFL Strenght Lower Extremities right knee flexion/extension 4/5; hip flexion 4/5; ankle dorsi/plantarflexion 4/ 5 left knee flexion/extension 4/5; hip flexion 4/5; ankle dorsi/plantarflexion 4/5 Integumentary/Posture Integumentary refer to nursing notes Bowel Incontinence: No Bladder Incontinence: Dangelo Cath Posture WNL Neuromuscular (Tone, Coordination, Reflexes) grossly intact Sensory Vision: Functional Hearing: Functional Sensation Right Lower Extremit: Impaired Sensation Left Lower Extremity: Impaired Transfers Functional [place] Measure 0=Not Assessed/NA 4=Minimal Assistance 1=Total Assistance 5=Supervision or Setup 2=Maximal Assistance 6=Modified [place] 3=Moderate Assistance 7=Complete [place] Transfers (B, C, W/C) (FIM): 5 Scootin Rollin Supine to/from Sit: 5 Sit to/from Stand: 5 Gait Mode of Locomotion: Walk Anticipated Mode of Locomotion: Walk Gait (FIM): 5 Distance (FIM): 3=150 ft Distance: 200' Gait Level of Assist: 5 Gait Persons Needed: 1 Gait Assistive Device: FWW Comments/Gait Description safe and functional Balance Sitting Static: Normal Sitting Dynamic: Normal Standing Static: Normal Standing Dynamic: Normal Assessment/Needs 86 y.o. female, will benefit from skilled PT to address functional strength and mobility to improve current LOF and to safely return to home at maximum LOF. Rehab Potential: Good PT [facility] Goals Interactive Media Director Goals PT [facility] Goals Time Frame: Sep 26, 2016 Transfers (B,C,W/C) (FIM): 6 Gait (FIM): 6 Gait distance (FIM): 3=150 ft Distance: 250' Gait Level of Assist: 6 Gait Assistive Device: FWW PT Plan Problem List Problem List: Activity Tolerance Treatment/Plan Treatment Plan: Continue Plan of Care Treatment Plan: Bed Mobility, Education, Functional Activity Gómez, Functional Strength, Gait, Safety, Therapeutic Exercise, Transfers Treatment Duration: Sep 26, 2016 # of days/week 6 Visits Per Week: 6 Pt/Family Agrees w/Plan: Yes Time/GCodes Time In: 1245 Time Out: 1315 Total Billed Treatment Time: 30 Total Billed Treatment 1 visit EVMod 30 min MARYANA JO PT Sep 12, 2016 14:15
[2016-09-12] MEDS ORDERED: VANCOMYCIN 1250 MG/NS 250 ML IVPB IV SCH ×2 (15:00)
[2016-09-12] MEDS ORDERED: NON-FORMULARY MEDICATION 1 EA EA (Escitalopram Oxalate 10 MG) PO SCH (17:00)
[2016-09-12] MEDS: ENOXAPARIN 40 MG/0.4 ML (LOVENOX) SYR SC SCH (17:13)
[2016-09-12] MEDS: AZITHROMYCIN 500 MG/NS 250 ML IVPB IV SCH ×2 (17:13)
[2016-09-12] MEDS: meTOproloL SUCCINATE 50 MG (TOPROL XL) TAB PO SCH (20:43)
[2016-09-13] VITALS: BP 117/46
[2016-09-13] MEDS: aCETylcysteine 20% (MUCOMYST) 30ML SOLN VIAL INH SCH ×4 (02:15→22:14)
[2016-09-13] MEDS: RT-ALBUTEROL/IPRATROPIUM 3 ML (DUONEB) VIAL INH SCH ×6 (02:15→22:14)
[2016-09-13] MEDS: inSUlin (REGULAR) HUMAN 1 UNIT/0.01 ML (CHARGE PER UNIT) SC SCH ×4 (06:00→21:00)
[2016-09-13 06:30] VITALS: BP 130/59
[2016-09-13] MEDS: metFORMIN 500 MG (GLUCOPHAGE) TAB PO SCH ×2 (09:19→16:53)
[2016-09-13] MEDS: LOSARTAN 50 MG (COZAAR) TAB PO SCH (09:19)
[2016-09-13] MEDS: PANTOPRAZOLE 40 MG/10 ML (PROTONIX) VIAL IV SCH (09:19)
[2016-09-13] MEDS ORDERED: SENNA W/DOCUSATE (SENOKOT S) TABLET PO NR (10:00)
[2016-09-13] MEDS ORDERED: FUROSEMIDE 40 MG/4 ML INJ (LASIX) IVP NR (10:00)
--- NOTE | 2016-09-13 10:05 | Progress Note (SOAP) ---
Subjective Subjective/Events-last exam PT REPORTS PERSISTENT COUGHING, COUGHED "ALL NIGHT LONG" LAST NIGHT. SHE REPORTS THAT HER GI TRACT IS NOT UPSET, BUT DOES HAVE CONSTIPATION. Review of Systems General: Fatigue HEENT: No Head Aches Pulmonary: Dyspnea, Cough Cardiovascular: No: Chest Pain Gastrointestinal: Constipation, No: Abdominal Pain, Nausea Neurological: Weakness, No: Confusion Objective Exam Vital Signs Date Time Temp Pulse Resp B/P (MAP) Pulse Ox O2 Delivery O2 Flow Rate FiO2 09/13/16 07:04 92 4.00 09/13/16 06:30 96.5 84 19 130/59 94 High Flow NC 4.00 09/13/16 04:32 76 09/13/16 04:00 High Flow NC 4.00 09/13/16 02:15 96 5.00 09/13/16 00:00 98.4 84 19 117/46 94 High Flow NC 5.00 09/12/16 23:19 84 09/12/16 21:24 93 5.00 09/12/16 21:00 88 09/12/16 20:00 98.4 93 20 149/66 94 High Flow NC 6.00 09/12/16 20:00 High Flow NC 6.00 09/12/16 18:26 94 5.50 09/12/16 17:00 98.4 90 24 131/65 95 High Flow NC 6.00 09/12/16 14:41 95 6.00 09/12/16 11:45 98.6 81 22 142/78 94 High Flow N/C 6.00 09/12/16 10:26 95 6.00 I & O 09/13/16 07:00 Intake Total 2370 ml Output Total 3675 ml Balance -1305 ml Capillary Refill : Less Than 3 Seconds General Appearance: No Apparent Distress, WD/WN HEENT: PERRL/EOMI, Pharynx Normal Neck: Full Range of Motion, Supple Respiratory: Chest Non Tender, Decreased Breath Sounds, Rhonci, Wheezing Cardiovascular: Regular Rate, Rhythm Gastrointestinal: normal bowel sounds, non tender, soft, no organomegaly, no pulsatile mass Extremity: No Pedal Edema Neurologic/Psychiatric: Alert, Oriented x3, No Motor/Sensory Deficits, Normal Mood/Affect Skin: Warm/Dry Lymphatic: No Adenopathy Results Lab Laboratory Tests 09/12/16 11:48: Glucometer 251H 09/12/16 17:03: Glucometer 224H 09/12/16 20:39: Glucometer 195H 09/13/16 06:32: Glucometer 126H Microbiology 09/11/16 Blood Culture - Preliminary, Resulted No growth Assessment/Plan Assessment/Plan Assess & Plan/Chief Complaint SEPSIS PNEUMONIA LACTIC ACIDOSIS COUGH EMESIS SUSPECTED ASPIRATION PNEUMONIA HYPOMAGNESEMIA DIABETES MELLITUS HYPERTENSION DEPRESSION CONSTIPATION REFLUX SEPSIS WITH LACTIC ACIDOSIS - DUE TO HYPOXEMIA FROM SUSPECTED ASPIRATION PNEUMONIA PNEUMONIA - ON SEPSIS PROTOCOL WITH DUAL ANTIBIOTICS - STOP VANC - CONTINUE WITH ZITHROMAX AND ROCEPHIN EMESIS - ZOFRAN IV PRN HYPOMAGNESEMIA - REPLACEMENT PROTOCOL. DIABETES MELLITUS - RESTARTED METFORMIN - MONITOR FSBS ACHS. HYPERTENSION - RESTARTED LOSARTAN - METOPROLOL, MONITOR PRESSURE. DEPRESSION - STARTED [facility] DOES NOT HAVE LEXAPRO ON FORMULARY. DVT PROPHYLAXIS - SCD'S AND LOVENOX. GI PROPHYLAXIS WITH PANTOPRAZOLE - DISCUSSED WITH DR. SAN - CONCERN FOR ESOPHAGEAL REFLUX CAUSING ASPIRATION - HOSPITAL DOES NOT DO ESOPHAGEAL MANOMETRY. I HAVE HAD MY STAFF CONTACT DR. COX'S OFFICE FOR OUTPATIENT APPT ON DISCHARGE FROM HOSPITAL. Clinical Quality Measures DVT/VTE Risk/Contraindication: Risk Factor Score Per Nursin RFS Level Per Nursing on Admit: 4+=Very High NAVARRO OCONNELL MD Sep 13, 2016 10:05
--- NOTE | 2016-09-13 10:13 | Physical Therapy Daily Note ---
PT Daily Note-Current Subjective Patient is in bed and agrees to therapy. Pain Numeric Pain Scale: 0-No Pain Location: No Pain Reported Mental Status Patient Orientation: Normal For Age Attachments: Oxygen (5L HF), IV Transfers Functional [place] Measure 0=Not Assessed/NA 4=Minimal Assistance 1=Total Assistance 5=Supervision or Setup 2=Maximal Assistance 6=Modified [place] 3=Moderate Assistance 7=Complete IndependenceIRFPAI Quality Coding Scale 6 Independent with activity with or without an assistive device 5 Patient requires set up or clean up by helper. Patient completes activity by themselves 4 Supervision or touching assist (CGA). [place] provide cues , steadying assist 3 The helper provides less than half the effort to complete the activity 2 The helper provides more than half the effort to complete the activity 1 Dependent. The helper does all the effort to complete an activity 7 Patient refused to complete or attempt activity 9 The patient did not perform the activity before the current illness or injury 88 Not attempted due to Medical conditions or safety concerns Transfers (B, C, W/C) (FIM): 5 Scootin Rollin Supine to/from Sit: 5 Sit to/from Stand: 5 Gait Training Gait (FIM): 5 Distance (FIM): 3=150 ft Distance: 250' x 2 Gait Level of Assist: 5 Gait Persons Needed: 1 Gait Assistive Device: FWW slow and steady gait sequence. 1 standing recovery period secondary to SOA. Assessment Patient tolerated treatment well and is up in recliner with Dr. hannah. PT to increase activity as tolerated by patient. PT Mcc Goals Mcc Goals PT Mcc Goals Time Frame: Sep 26, 2016 Transfers (B,C,W/C) (FIM): 6 Gait (FIM): 6 Gait distance (FIM): 3=150 ft Distance: 250' Gait Level of Assist: 6 Gait Assistive Device: FWW PT Plan Treatment/Plan Treatment Plan: Continue Plan of Care Treatment Plan: Bed Mobility, Education, Functional Activity Gómez, Functional Strength, Gait, Safety, Therapeutic Exercise, Transfers Treatment Duration: Sep 26, 2016 Visits Per Week: 6 Time/GCodes Time In: 915 Time Out: 940 Total Billed Treatment Time: 25 Total Billed Treatment 1 visit FA x 2 25 min MARYANA JO PT Sep 13, 2016 10:13
[2016-09-13 13:20] VITALS: BP 135/60
[2016-09-13] MEDS ORDERED: TROUGH ORDER-PHARMACY XX NR (14:00)
[2016-09-13 15:40] VITALS: BP 147/75
[2016-09-13] MEDS: ENOXAPARIN 40 MG/0.4 ML (LOVENOX) SYR SC SCH (16:53)
[2016-09-13] MEDS: AZITHROMYCIN 500 MG/NS 250 ML IVPB IV SCH ×2 (16:54)
[2016-09-13 19:25] VITALS: BP 129/76
[2016-09-13] MEDS: SENNA W/DOCUSATE (SENOKOT S) TABLET PO SCH (21:19)
[2016-09-13] MEDS: meTOproloL SUCCINATE 50 MG (TOPROL XL) TAB PO SCH (21:19)
[2016-09-14 00:01] VITALS: BP 119/67
[2016-09-14] MEDS: RT-ALBUTEROL/IPRATROPIUM 3 ML (DUONEB) VIAL INH SCH ×6 (02:10→22:18)
[2016-09-14 04:27] VITALS: BP 132/61
[2016-09-14] MEDS: inSUlin (REGULAR) HUMAN 1 UNIT/0.01 ML (CHARGE PER UNIT) SC SCH ×4 (06:00→21:00)
[2016-09-14] MEDS: aCETylcysteine 20% (MUCOMYST) 30ML SOLN VIAL INH SCH ×4 (06:35→22:18)
[2016-09-14] MEDS: metFORMIN 500 MG (GLUCOPHAGE) TAB PO SCH ×2 (07:37→16:51)
[2016-09-14 08:00] VITALS: BP 149/67
--- NOTE | 2016-09-14 08:45 | Progress Note (SOAP) ---
Subjective Subjective/Events-last exam sepsis. Pneumonia. Cough patient still complains of this. Lactic acidosis. Emesis. Aspiration pneumonia. Diabetes. Hypertension patient's main problem is cough Objective Exam Vital Signs Date Time Temp Pulse Resp B/P (MAP) Pulse Ox O2 Delivery O2 Flow Rate FiO2 09/14/16 08:00 97.7 78 18 149/67 94 High Flow NC 4.00 09/14/16 06:40 95 4.00 09/14/16 04:27 97.2 80 20 132/61 95 High Flow NC 4.00 09/14/16 02:10 90 4.00 09/14/16 01:00 86 09/14/16 00:01 98.2 90 22 119/67 94 High Flow NC 4.00 09/13/16 22:15 92 4.00 09/13/16 20:10 93 High Flow NC 4.00 09/13/16 19:25 99.5 112 24 129/76 91 High Flow NC 4.00 09/13/16 18:42 92 4.00 09/13/16 15:40 98.9 88 20 147/75 93 Nasal Cannula 4.00 09/13/16 15:14 92 4.00 09/13/16 13:20 97.9 79 20 135/60 94 Nasal Cannula 4.00 09/13/16 13:20 Nasal Cannula 4.00 09/13/16 13:00 80 09/13/16 10:13 94 4.00 09/13/16 09:00 96 High Flow NC 4.00 I & O 09/14/16 07:00 Intake Total 1350 ml Output Total 2250 ml Balance -900 ml Capillary Refill : Less Than 3 Seconds General Appearance: No Apparent Distress, WD/WN HEENT: Normal ENT Inspection Neck: Normal Inspection Respiratory: Decreased Breath Sounds, Wheezing Cardiovascular: Irregularly Irregular Gastrointestinal: non tender Results Lab Laboratory Tests 09/13/16 12:31: Glucometer 160H 09/13/16 16:14: Glucometer 113H 09/13/16 21:06: Glucometer 195H 09/14/16 05:57: Glucometer 130H Microbiology 09/11/16 Blood Culture - Preliminary, Resulted No growth Assessment/Plan Assessment/Plan Assess & Plan/Chief Complaint sepsis. Pneumonia. Aspiration pneumonia. Lactic acidosis. Cough which is bothering her. Emesis. Diabetes. Hypertension. Hypomagnesemia Clinical Quality Measures DVT/VTE Risk/Contraindication: Risk Factor Score Per Nursin RFS Level Per Nursing on Admit: 4+=Very High LUNA DAS DO Sep 14, 2016 08:45
[2016-09-14] MEDS: LOSARTAN 50 MG (COZAAR) TAB PO SCH (09:04)
[2016-09-14] MEDS: SENNA W/DOCUSATE (SENOKOT S) TABLET PO SCH ×2 (09:04→21:33)
[2016-09-14] MEDS: PANTOPRAZOLE 40 MG/10 ML (PROTONIX) VIAL IV SCH (09:05)
[2016-09-14] MEDS ORDERED: PROMETHAZINE/ CODEINE SYRUP 5 ML UDC PO PRN (10:00)
[2016-09-14 10:22] LABS: BASOPHILS % (AUTO) 0 % (0-10); EOSINOPHILS # (AUTO) 0.3 10^3/uL (0.0-0.3); EOSINOPHILS % (AUTO) 3 % (0-10); LYMPHOCYTES # (AUTO) 1.1 X 10^3 (1.0-4.0); LYMPHOCYTES % (AUTO) 12 % (12-44); MEAN CORPUSCULAR HEMOGLOBIN 29 PG (25-34); MEAN CORPUSCULAR HGB CONC 32 G/DL (32-36); MEAN CORPUSCULAR VOLUME 92 FL (80-99); MEAN PLATELET VOLUME 9.1 FL (7.4-10.4); MONOCYTES # (AUTO) 0.8 X 10^3 (0.0-1.0); MONOCYTES % (AUTO) 9 % (0-12); NEUTROPHILS % (AUTO) 76 % (42-75); PLATELET COUNT 205 10^3/uL (130-400); RED BLOOD COUNT 4.09 10^6/uL (4.35-5.85); RED CELL DISTRIBUTION WIDTH 14.9 % (10.0-14.5); WHITE BLOOD COUNT 9.2 10^3/uL (4.3-11.0)
[2016-09-14 10:40] LABS: ALBUMIN 3.3 G/DL (3.2-4.5); BILIRUBIN,TOTAL 0.5 MG/DL (0.1-1.0); CALCIUM 8.4 MG/DL (8.5-10.1); CREATININE SERUM 0.94 MG/DL (0.60-1.30); MAGNESIUM 1.7 MG/DL (1.8-2.4); POTASSIUM 4.4 MMOL/L (3.6-5.0); TOTAL PROTEIN 6.1 G/DL (6.4-8.2)
--- NOTE | 2016-09-14 11:55 | Physical Therapy Daily Note ---
PT Daily Note-Current Subjective Patient reports "I've felt better." She is agreeable to ambulation. Mental Status Patient Orientation: Normal For Age Attachments: Oxygen, IV Transfers Functional [place] Measure 0=Not Assessed/NA 4=Minimal Assistance 1=Total Assistance 5=Supervision or Setup 2=Maximal Assistance 6=Modified [place] 3=Moderate Assistance 7=Complete IndependenceIRFPAI Quality Coding Scale 6 Independent with activity with or without an assistive device 5 Patient requires set up or clean up by helper. Patient completes activity by themselves 4 Supervision or touching assist (CGA). [place] provide cues , steadying assist 3 The helper provides less than half the effort to complete the activity 2 The helper provides more than half the effort to complete the activity 1 Dependent. The helper does all the effort to complete an activity 7 Patient refused to complete or attempt activity 9 The patient did not perform the activity before the current illness or injury 88 Not attempted due to Medical conditions or safety concerns Transfers (B, C, W/C) (FIM): 5 Supine to/from Sit: 5 Sit to/from Stand: 5 Bed to/from Chair: 5 Gait Training Gait (FIM): 5 Distance (FIM): 3=150 ft Distance: 300 Gait Level of Assist: 5 Gait Persons Needed: 1 Gait Assistive Device: FWW patient was steady on her feet but needed tactile and verbal cues for directing her walker around obstacles. She reported the walker would not track straight. Pt was issued a new walker. Assessment Current Status: Good Progress Patient is showing progress with gait stability and activity tolerance. She will benefit from continued therapy. PT Corporate Strategy Associate Goals Corporate Strategy Associate Goals PT Corporate Strategy Associate Goals Time Frame: Sep 26, 2016 Transfers (B,C,W/C) (FIM): 6 Gait (FIM): 6 Gait distance (FIM): 3=150 ft Distance: 250' Gait Level of Assist: 6 Gait Assistive Device: FWW PT Plan Treatment/Plan Treatment Plan: Continue Plan of Care Treatment Plan: Bed Mobility, Education, Functional Activity Gómez, Functional Strength, Gait, Safety, Therapeutic Exercise, Transfers Treatment Duration: Sep 26, 2016 Visits Per Week: 6 Time/GCodes Time In: 925 Time Out: 935 Total Billed Treatment Time: 10 Total Billed Treatment visit, gait 10 min OSMAR COSTELLO PT Sep 14, 2016 11:55
[2016-09-14 12:00] VITALS: BP 150/67
[2016-09-14] MEDS ORDERED: MILK OF MAGNESIA 400 MG/5 ML 30 ML UDC PO PRN (15:45)
[2016-09-14 16:04] VITALS: BP 127/60
--- NOTE | 2016-09-14 16:45 | Diagnostic Imaging Report ---
EXAM: PA and lateral chest. INDICATION: Pneumonia. FINDINGS: The appearance of the chest has worsened since the prior study of 09/12/16 as a new area of pneumonia/atelectasis has developed in the left lung base. There also appears to be a small amount of fluid in the left lower lobe. Conversely, the perihilar markings do not seem as prominent as on the prior exam. The lungs, where visualized, were otherwise clear. The right hemidiaphragm is elevated and the right lung base is difficult to evaluate. The heart also seems less prominent than noted on the prior exam. The mediastinum is not widened. The osseous structures are intact. The calcifications in the soft tissues of the left supraclavicular region seen on the CT chest exam performed on 09/12/2016 is again evident and does not seem to have changed significantly. 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 There is no acute bony abnormality noted. IMPRESSION: There are mixed results. There is less pulmonary congestion than noted on the prior exam and the heart has decreased in size. However, a new area of pneumonia/atelectasis and some fluid has developed in the left lung base. A followup study would be recommend for continued evaluation. Dictated by: Dictated on workstation # [id number]
[2016-09-14] MEDS: AZITHROMYCIN 500 MG/NS 250 ML IVPB IV SCH ×2 (16:51)
[2016-09-14] MEDS: ENOXAPARIN 40 MG/0.4 ML (LOVENOX) SYR SC SCH (16:51)
[2016-09-14 20:16] VITALS: BP 162/69
[2016-09-14] MEDS: meTOproloL SUCCINATE 50 MG (TOPROL XL) TAB PO SCH (21:33)
[2016-09-15 00:24] VITALS: BP 140/69
[2016-09-15] MEDS: RT-ALBUTEROL/IPRATROPIUM 3 ML (DUONEB) VIAL INH SCH ×6 (02:08→21:57)
[2016-09-15 04:13] VITALS: BP 130/60
[2016-09-15] MEDS: inSUlin (REGULAR) HUMAN 1 UNIT/0.01 ML (CHARGE PER UNIT) SC SCH ×4 (06:00→21:00)
[2016-09-15] MEDS: aCETylcysteine 20% (MUCOMYST) 30ML SOLN VIAL INH SCH ×3 (06:40→21:57)
[2016-09-15] MEDS: metFORMIN 500 MG (GLUCOPHAGE) TAB PO SCH ×2 (07:03→16:18)
[2016-09-15 07:04] LABS: BASOPHILS % (AUTO) 0 % (0-10); EOSINOPHILS # (AUTO) 0.5 10^3/uL (0.0-0.3); EOSINOPHILS % (AUTO) 6 % (0-10); LYMPHOCYTES # (AUTO) 1.3 X 10^3 (1.0-4.0); LYMPHOCYTES % (AUTO) 15 % (12-44); MEAN CORPUSCULAR HEMOGLOBIN 29 PG (25-34); MEAN CORPUSCULAR HGB CONC 32 G/DL (32-36); MEAN CORPUSCULAR VOLUME 91 FL (80-99); MEAN PLATELET VOLUME 9.2 FL (7.4-10.4); MONOCYTES # (AUTO) 0.8 X 10^3 (0.0-1.0); MONOCYTES % (AUTO) 9 % (0-12); NEUTROPHILS # (AUTO) 5.8 X 10^3 (1.8-7.8); NEUTROPHILS % (AUTO) 70 % (42-75); PLATELET COUNT 202 10^3/uL (130-400); RED BLOOD COUNT 4.16 10^6/uL (4.35-5.85); RED CELL DISTRIBUTION WIDTH 14.7 % (10.0-14.5); WHITE BLOOD COUNT 8.3 10^3/uL (4.3-11.0)
[2016-09-15 07:38] LABS: ALANINE AMINOTRANSFERASE 17 U/L (0-55); ALBUMIN 3.3 G/DL (3.2-4.5); ANION GAP 8 MMOL/L (5-14); ASPARTATE AMINO TRANSFERASE 15 U/L (5-34); BILIRUBIN,TOTAL 0.6 MG/DL (0.1-1.0); BLOOD UREA NITROGEN 12 MG/DL (7-18); BUN/CREATININE RATIO 15; CALCIUM 8.6 MG/DL (8.5-10.1); CARBON DIOXIDE 27 MMOL/L (21-32); CHLORIDE 106 MMOL/L (98-107); CREATININE SERUM 0.81 MG/DL (0.60-1.30); GFR ESTIMATED > 60; GLUCOSE 129 MG/DL (70-105); POTASSIUM 4.5 MMOL/L (3.6-5.0); SODIUM 141 MMOL/L (135-145); TOTAL PROTEIN 6.1 G/DL (6.4-8.2)
[2016-09-15 08:00] VITALS: BP 173/75
[2016-09-15] MEDS: PANTOPRAZOLE 40 MG/10 ML (PROTONIX) VIAL IV SCH (08:26)
[2016-09-15] MEDS: LOSARTAN 50 MG (COZAAR) TAB PO SCH (08:26)
[2016-09-15] MEDS: SENNA W/DOCUSATE (SENOKOT S) TABLET PO SCH ×2 (08:26→20:35)
--- NOTE | 2016-09-15 11:25 | Progress Note (SOAP) ---
Subjective Subjective/Events-last exam aspiration pneumonia. Syncope. Chest x-ray yesterday shows improvement. mixed results. Less pulmonary congestion and decrease in heart. Now have a new area of pneumonia in the left lung base Objective Exam Vital Signs Date Time Temp Pulse Resp B/P (MAP) Pulse Ox O2 Delivery O2 Flow Rate FiO2 09/15/16 10:17 92 4.00 09/15/16 08:19 Nasal Cannula 4.00 09/15/16 08:00 96.1 83 20 173/75 97 High Flow NC 4.00 09/15/16 07:00 81 09/15/16 06:40 94 4.00 09/15/16 04:13 98.4 55 12 130/60 95 High Flow NC 4.00 09/15/16 02:09 95 4.00 09/15/16 01:38 71 09/15/16 00:24 98.2 96 24 140/69 95 High Flow NC 4.00 09/14/16 22:19 95 4.00 09/14/16 20:16 97.1 101 18 162/69 95 High Flow NC 4.00 09/14/16 20:15 93 High Flow NC 4.00 09/14/16 18:55 96 09/14/16 18:21 94 4.00 09/14/16 17:39 94 09/14/16 16:04 97.1 96 20 127/60 94 High Flow NC 4.00 09/14/16 14:49 95 4.00 09/14/16 13:14 96 09/14/16 12:00 97.5 84 20 150/67 95 High Flow NC 4.00 I & O 09/15/16 07:00 Intake Total 2050 ml Output Total 4200 ml Balance -2150 ml Capillary Refill : Less Than 3 Seconds General Appearance: No Apparent Distress, WD/WN HEENT: Normal ENT Inspection Neck: Full Range of Motion, Normal Inspection Respiratory: Chest Non Tender, Normal Breath Sounds, No Accessory Muscle Use, No Respiratory Distress Cardiovascular: Regular Rate, Rhythm, No Murmur Gastrointestinal: non tender, soft Results Lab Laboratory Tests 09/15/16 06:17 Laboratory Tests 09/14/16 16:00: Glucometer 175H 09/14/16 20:41: Glucometer 136H 09/15/16 05:26: Glucometer 137H 09/15/16 06:17: White Blood Count 8.3, Red Blood Count 4.16L, Hemoglobin 12.2, Hematocrit 38, Mean Corpuscular Volume 91, Mean Corpuscular Hemoglobin 29, Mean Corpuscular Hemoglobin Concent 32, Red Cell Distribution Width 14.7H, Platelet Count 202, Mean Platelet Volume 9.2, Neutrophils (%) (Auto) 70, Lymphocytes (%) (Auto) 15, Monocytes (%) (Auto) 9, Eosinophils (%) (Auto) 6, Basophils (%) (Auto) 0, Neutrophils # (Auto) 5.8, Lymphocytes # (Auto) 1.3, Monocytes # (Auto) 0.8, Eosinophils # (Auto) 0.5H, Basophils # (Auto) 0.0, Sodium Level 141, Potassium Level 4.5, Chloride Level 106, Carbon Dioxide Level 27, Anion Gap 8, Blood Urea Nitrogen 12, Creatinine 0.81, Estimat Glomerular Filtration Rate > 60, BUN/ Creatinine Ratio 15, Glucose Level 129H, Calcium Level 8.6, Total Bilirubin 0.6 , Aspartate Amino Transf (AST/SGOT) 15, Alanine Aminotransferase (ALT/SGPT) 17, Alkaline Phosphatase 54, Total Protein 6.1L, Albumin 3.3 09/15/16 10:37: Glucometer 128H Microbiology 09/11/16 Blood Culture - Preliminary, Resulted No growth Assessment/Plan Assessment/Plan Assess & Plan/Chief Complaint sepsis. Pneumonia. Aspiration pneumonia. Lactic acidosis. Cough which is bothering her. Emesis. Diabetes. Hypertension. Hypomagnesemia. . 09/15/16. Pneumonia. Aspiration pneumonia Cough. Diabetes. Hypertension. Hypoxia magnesium. Chest x-ray yesterday showed mixed results Clinical Quality Measures DVT/VTE Risk/Contraindication: Risk Factor Score Per Nursin RFS Level Per Nursing on Admit: 4+=Very High LUNA DAS DO Sep 15, 2016 11:25
[2016-09-15 12:41] VITALS: BP 166/70
[2016-09-15] MEDS ORDERED: METOCLOPRAMIDE 5 MG (REGLAN) TAB PO ONE (13:00)
[2016-09-15 16:00] VITALS: BP 123/63
[2016-09-15] MEDS: AZITHROMYCIN 500 MG/NS 250 ML IVPB IV SCH ×2 (16:18)
[2016-09-15] MEDS: ENOXAPARIN 40 MG/0.4 ML (LOVENOX) SYR SC SCH (16:18)
[2016-09-15 19:36] VITALS: BP 126/77
[2016-09-15] MEDS: meTOproloL SUCCINATE 50 MG (TOPROL XL) TAB PO SCH (20:35)
[2016-09-15] MEDS: METOCLOPRAMIDE 5 MG (REGLAN) TAB PO SCH (20:35)
[2016-09-16 00:12] VITALS: BP 118/57
[2016-09-16] MEDS: aCETylcysteine 20% (MUCOMYST) 30ML SOLN VIAL INH SCH ×4 (02:20→22:07)
[2016-09-16] MEDS: RT-ALBUTEROL/IPRATROPIUM 3 ML (DUONEB) VIAL INH SCH ×6 (02:35→22:07)
[2016-09-16 04:08] VITALS: BP 116/56
[2016-09-16] MEDS: inSUlin (REGULAR) HUMAN 1 UNIT/0.01 ML (CHARGE PER UNIT) SC SCH ×4 (06:00→20:28)
[2016-09-16] MEDS: metFORMIN 500 MG (GLUCOPHAGE) TAB PO SCH ×2 (06:11→16:46)
[2016-09-16 06:26] LABS: MEAN PLATELET VOLUME 9.1 FL (7.4-10.4); RED BLOOD COUNT 4.33 10^6/uL (4.35-5.85); RED CELL DISTRIBUTION WIDTH 14.5 % (10.0-14.5); WHITE BLOOD COUNT 7.9 10^3/uL (4.3-11.0)
[2016-09-16 06:50] LABS: ANION GAP 9 MMOL/L (5-14); BLOOD UREA NITROGEN 10 MG/DL (7-18); BUN/CREATININE RATIO 11; CALCIUM 8.7 MG/DL (8.5-10.1); CARBON DIOXIDE 27 MMOL/L (21-32); CHLORIDE 104 MMOL/L (98-107); CREATININE SERUM 0.87 MG/DL (0.60-1.30); GFR ESTIMATED > 60; GLUCOSE 131 MG/DL (70-105); POTASSIUM 4.5 MMOL/L (3.6-5.0); SODIUM 140 MMOL/L (135-145)
[2016-09-16 08:02] VITALS: BP 118/56
[2016-09-16] MEDS: SENNA W/DOCUSATE (SENOKOT S) TABLET PO SCH ×2 (09:26→20:27)
[2016-09-16] MEDS: LOSARTAN 50 MG (COZAAR) TAB PO SCH (09:27)
[2016-09-16] MEDS: METOCLOPRAMIDE 5 MG (REGLAN) TAB PO SCH ×3 (09:27→20:27)
[2016-09-16] MEDS: PANTOPRAZOLE 40 MG/10 ML (PROTONIX) VIAL IV SCH (09:28)
--- NOTE | 2016-09-16 09:38 | Progress Note (SOAP) ---
Subjective Subjective/Events-last exam pt reports feeling better "a little" but not significantly so compared to yesterday. however, overall she is feeling better and breathing better, just not "all better". Review of Systems General: Fatigue Pulmonary: Dyspnea, Cough Cardiovascular: No: Chest Pain Gastrointestinal: No: Abdominal Pain, Nausea Neurological: Weakness, No: Confusion Objective Exam Vital Signs Date Time Temp Pulse Resp B/P (MAP) Pulse Ox O2 Delivery O2 Flow Rate FiO2 09/16/16 08:02 97.7 72 12 118/56 92 High Flow NC 3.00 09/16/16 08:02 97.7 72 09/16/16 07:01 94 3.00 09/16/16 04:08 97.9 68 12 116/56 93 High Flow NC 3.00 09/16/16 02:35 94 3.00 09/16/16 01:00 94 09/16/16 00:12 98.0 87 12 118/57 92 High Flow NC 3.00 09/15/16 21:57 94 3.00 09/15/16 21:00 Nasal Cannula 4.00 09/15/16 19:36 98.7 87 20 126/77 92 High Flow NC 3.00 09/15/16 18:56 98 09/15/16 18:47 94 3.00 09/15/16 16:00 99.2 78 20 123/63 92 High Flow NC 4.00 09/15/16 15:10 95 4.00 09/15/16 13:00 87 09/15/16 12:41 96.7 73 18 166/70 92 High Flow NC 4.00 09/15/16 10:17 92 4.00 I & O 09/16/16 07:00 Intake Total 1480 ml Output Total 2850 ml Balance -1370 ml Capillary Refill : Less Than 3 Seconds General Appearance: No Apparent Distress, WD/WN HEENT: PERRL/EOMI, Pharynx Normal Neck: Full Range of Motion, Supple Respiratory: Chest Non Tender, Crackles (in bases), Decreased Breath Sounds Cardiovascular: Regular Rate, Rhythm, No Edema Gastrointestinal: normal bowel sounds, non tender, soft, no organomegaly Extremity: Normal Capillary Refill, Non Tender, No Calf Tenderness, No Pedal Edema Neurologic/Psychiatric: Alert, Oriented x3, No Motor/Sensory Deficits, Normal Mood/Affect Skin: Warm/Dry Lymphatic: No Adenopathy Results Lab Laboratory Tests 09/15/16 10:37: Glucometer 128H 09/15/16 15:55: Glucometer 132H 09/15/16 21:07: Glucometer 152H 09/16/16 05:35: White Blood Count 7.9, Red Blood Count 4.33L, Hemoglobin 12.5, Hematocrit 40, Mean Corpuscular Volume 92, Mean Corpuscular Hemoglobin 29, Mean Corpuscular Hemoglobin Concent 32, Red Cell Distribution Width 14.5, Platelet Count 229, Mean Platelet Volume 9.1, Sodium Level 140, Potassium Level 4.5, Chloride Level 104, Carbon Dioxide Level 27, Anion Gap 9, Blood Urea Nitrogen 10, Creatinine 0.87, Estimat Glomerular Filtration Rate > 60, BUN/Creatinine Ratio 11, Glucose Level 131H, Calcium Level 8.7 09/16/16 05:54: Glucometer 127H Microbiology 09/11/16 Blood Culture - Preliminary, Resulted No growth Assessment/Plan Assessment/Plan Assess & Plan/Chief Complaint SEPSIS PNEUMONIA LACTIC ACIDOSIS COUGH EMESIS SUSPECTED ASPIRATION PNEUMONIA HYPOMAGNESEMIA DIABETES MELLITUS HYPERTENSION DEPRESSION CONSTIPATION REFLUX SEPSIS WITH LACTIC ACIDOSIS - DUE TO HYPOXEMIA FROM SUSPECTED ASPIRATION PNEUMONIA PNEUMONIA - ON SEPSIS PROTOCOL WITH DUAL ANTIBIOTICS - STOP VANC - CONTINUE WITH ZITHROMAX AND ROCEPHIN EMESIS - ZOFRAN IV PRN HYPOMAGNESEMIA - REPLACEMENT PROTOCOL. DIABETES MELLITUS - RESTARTED METFORMIN - MONITOR FSBS ACHS. HYPERTENSION - RESTARTED LOSARTAN - METOPROLOL, MONITOR PRESSURE. DEPRESSION - STARTED [facility] DOES NOT HAVE LEXAPRO ON FORMULARY. DVT PROPHYLAXIS - SCD'S AND LOVENOX. GI PROPHYLAXIS WITH PANTOPRAZOLE - DISCUSSED WITH DR. SAN - CONCERN FOR ESOPHAGEAL REFLUX CAUSING ASPIRATION - HOSPITAL DOES NOT DO ESOPHAGEAL MANOMETRY. I HAVE HAD MY STAFF CONTACT DR. COX'S OFFICE FOR OUTPATIENT APPT ON DISCHARGE FROM HOSPITAL. Clinical Quality Measures DVT/VTE Risk/Contraindication: Risk Factor Score Per Nursin RFS Level Per Nursing on Admit: 4+=Very High NAVARRO OCONNELL MD Sep 16, 2016 09:38
--- NOTE | 2016-09-16 10:06 | Diagnostic Imaging Report ---
EXAMINATION: PA and lateral views of the chest. INDICATION: Pneumonia. FINDINGS: There are left basilar patchy infiltrates and a small pleural effusion, similar to 09/14/2016. Infiltrate and atelectasis in the right lung are seen. The heart size is normal. No effusion or pneumothorax. The mediastinum and eda appear unremarkable. IMPRESSION: Left basilar infiltrates with a small effusion. Minimal right basilar infiltrate or atelectasis. No significant change. Dictated by: Dictated on workstation # [id number]
--- NOTE | 2016-09-16 11:12 | Physical Therapy Daily Note ---
PT Daily Note-Current Subjective Patient is very agreeable to participate with PT. Patient reports she is feeling much better. Pain Numeric Pain Scale: 0-No Pain Location: No Pain Reported Mental Status Patient Orientation: Normal For Age Attachments: Oxygen (3L HF) Transfers Functional [place] Measure 0=Not Assessed/NA 4=Minimal Assistance 1=Total Assistance 5=Supervision or Setup 2=Maximal Assistance 6=Modified [place] 3=Moderate Assistance 7=Complete IndependenceIRFPAI Quality Coding Scale 6 Independent with activity with or without an assistive device 5 Patient requires set up or clean up by helper. Patient completes activity by themselves 4 Supervision or touching assist (CGA). [place] provide cues , steadying assist 3 The helper provides less than half the effort to complete the activity 2 The helper provides more than half the effort to complete the activity 1 Dependent. The helper does all the effort to complete an activity 7 Patient refused to complete or attempt activity 9 The patient did not perform the activity before the current illness or injury 88 Not attempted due to Medical conditions or safety concerns Transfers (B, C, W/C) (FIM): 6 Scootin Rollin Supine to/from Sit: 6 Sit to/from Stand: 6 Gait Training Gait (FIM): 6 Distance (FIM): 3=150 ft Distance: 550' Gait Level of Assist: 6 Gait Assistive Device: FWW safe and functional gait sequence with assistance for O2 tank. Assessment Patient tolerated treatment well and returned to bed with needs met. Education with patient on importance of OOB activity during the day to improve functional endurance to safely return to home with spouse. Patient voices understanding, however, returned to bed. 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
[2016-09-16 12:00] VITALS: BP 130/59
[2016-09-16 16:15] VITALS: BP 121/58
[2016-09-16] MEDS: ENOXAPARIN 40 MG/0.4 ML (LOVENOX) SYR SC SCH (16:46)
[2016-09-16 19:54] VITALS: BP 131/59
[2016-09-16] MEDS: meTOproloL SUCCINATE 50 MG (TOPROL XL) TAB PO SCH (20:27)
[2016-09-17 00:35] VITALS: BP 114/53
[2016-09-17] MEDS: RT-ALBUTEROL/IPRATROPIUM 3 ML (DUONEB) VIAL INH SCH ×6 (02:04→22:08)
[2016-09-17 04:26] VITALS: BP 125/57
[2016-09-17] MEDS: inSUlin (REGULAR) HUMAN 1 UNIT/0.01 ML (CHARGE PER UNIT) SC SCH ×4 (06:10→21:02)
[2016-09-17] MEDS: metFORMIN 500 MG (GLUCOPHAGE) TAB PO SCH ×2 (06:11→17:58)
[2016-09-17] MEDS: aCETylcysteine 20% (MUCOMYST) 30ML SOLN VIAL INH SCH ×4 (07:19→22:09)
[2016-09-17 08:00] VITALS: BP 129/60
[2016-09-17] MEDS: SENNA W/DOCUSATE (SENOKOT S) TABLET PO SCH ×2 (08:38→21:02)
[2016-09-17] MEDS: LOSARTAN 50 MG (COZAAR) TAB PO SCH (08:38)
[2016-09-17] MEDS: METOCLOPRAMIDE 5 MG (REGLAN) TAB PO SCH ×3 (08:38→21:02)
[2016-09-17] MEDS: PANTOPRAZOLE 40 MG/10 ML (PROTONIX) VIAL IV SCH (08:38)
--- NOTE | 2016-09-17 09:35 | Progress Note (SOAP) ---
Subjective Subjective/Events-last exam PT FEELING BETTER TODAY - HER IS WONDERING ABOUT WHEN SHE WILL BE ABLE TO GO HOME. PALOMA REPORTS THAT SHE HAS LOWER CHEST WALL/RIB PAIN - INCREASES WITH COUGHING. Review of Systems General: Fatigue HEENT: No Head Aches Pulmonary: Dyspnea, Cough, Pleuritic Chest Pain Cardiovascular: No: Chest Pain Gastrointestinal: No: Abdominal Pain, Constipation, Diarrhea, Nausea Genitourinary: No Dysuria, Frequency Neurological: Weakness, No: Confusion Objective Exam Vital Signs Date Time Temp Pulse Resp B/P (MAP) Pulse Ox O2 Delivery O2 Flow Rate FiO2 09/17/16 08:00 96.5 73 20 129/60 93 High Flow NC 3.00 09/17/16 07:20 93 3.00 09/17/16 07:00 65 09/17/16 04:26 98.6 75 20 125/57 93 High Flow NC 3.00 09/17/16 02:05 94 3.00 09/17/16 01:00 78 09/17/16 00:35 98.2 84 22 114/53 95 High Flow NC 3.00 09/16/16 22:07 96 3.00 09/16/16 20:38 High Flow NC 3.00 09/16/16 19:54 98.4 88 20 131/59 95 High Flow NC 3.00 09/16/16 19:00 89 09/16/16 18:15 94 3.00 09/16/16 16:15 98.8 81 22 121/58 95 High Flow NC 3.00 09/16/16 14:42 95 3.00 09/16/16 13:17 77 09/16/16 12:00 98.8 73 20 130/59 92 High Flow NC 3.00 09/16/16 10:45 93 3.00 I & O 09/17/16 07:00 Intake Total 1290 ml Output Total 1875 ml Balance -585 ml Capillary Refill : Less Than 3 Seconds General Appearance: No Apparent Distress, WD/WN HEENT: PERRL/EOMI, Pharynx Normal Neck: Full Range of Motion, Supple Respiratory: Chest Non Tender, Crackles (LEFT BASE) Cardiovascular: Regular Rate, Rhythm, No Edema Gastrointestinal: normal bowel sounds, non tender, soft, no organomegaly Extremity: Normal Capillary Refill, No Pedal Edema Neurologic/Psychiatric: Alert, Oriented x3, No Motor/Sensory Deficits, Normal Mood/Affect Skin: Normal Color, Warm/Dry Lymphatic: No Adenopathy Results Lab Laboratory Tests 09/16/16 11:09: Glucometer 94 09/16/16 15:42: Glucometer 205H 09/16/16 20:19: Glucometer 123H 09/17/16 06:03: Glucometer 132H Microbiology 09/11/16 Blood Culture - Final, Complete No growth Assessment/Plan Assessment/Plan Assess & Plan/Chief Complaint SEPSIS PNEUMONIA LACTIC ACIDOSIS COUGH EMESIS SUSPECTED ASPIRATION PNEUMONIA HYPOMAGNESEMIA DIABETES MELLITUS HYPERTENSION DEPRESSION CONSTIPATION REFLUX SEPSIS WITH LACTIC ACIDOSIS - DUE TO HYPOXEMIA FROM SUSPECTED ASPIRATION PNEUMONIA PNEUMONIA - ON SEPSIS PROTOCOL WITH DUAL ANTIBIOTICS - STOP VANC - CONTINUE WITH ZITHROMAX AND ROCEPHIN - PT TO HOPEFULLY BE DISCHARGED TO HOME TOMORROW WITH OXYGEN, NEBULIZER TREATMENTS. RT TO COME BY AND DO AMBULATORY OXYGEN ON PATIENT FOR HOME OXYGEN QUALIFICATIONS, AND START AEROBIKA. EMESIS - ZOFRAN IV PRN HYPOMAGNESEMIA - REPLACEMENT PROTOCOL. DIABETES MELLITUS - RESTARTED METFORMIN - MONITOR FSBS ACHS. HYPERTENSION - RESTARTED LOSARTAN - METOPROLOL, MONITOR PRESSURE. DEPRESSION - STARTED [facility] DOES NOT HAVE LEXAPRO ON FORMULARY. DVT PROPHYLAXIS - SCD'S AND LOVENOX. GI PROPHYLAXIS WITH PANTOPRAZOLE - DISCUSSED WITH DR. SAN - CONCERN FOR ESOPHAGEAL REFLUX CAUSING ASPIRATION - HOSPITAL DOES NOT DO ESOPHAGEAL MANOMETRY. I HAVE HAD MY STAFF CONTACT DR. COX'S OFFICE FOR OUTPATIENT APPT ON DISCHARGE FROM HOSPITAL. Clinical Quality Measures DVT/VTE Risk/Contraindication: Risk Factor Score Per Nursin RFS Level Per Nursing on Admit: 4+=Very High NAVARRO OCONNELL MD Sep 17, 2016 09:35
--- NOTE | 2016-09-17 10:46 | Physical Therapy Daily Note ---
PT Daily Note-Current Subjective Patient reports she is up ad stan in room and hallway with spouse ambulating PRN during day. Pain Numeric Pain Scale: 0-No Pain Location: No Pain Reported Mental Status Patient Orientation: Normal For Age Transfers Functional [place] Measure 0=Not Assessed/NA 4=Minimal Assistance 1=Total Assistance 5=Supervision or Setup 2=Maximal Assistance 6=Modified [place] 3=Moderate Assistance 7=Complete IndependenceIRFPAI Quality Coding Scale 6 Independent with activity with or without an assistive device 5 Patient requires set up or clean up by helper. Patient completes activity by themselves 4 Supervision or touching assist (CGA). [place] provide cues , steadying assist 3 The helper provides less than half the effort to complete the activity 2 The helper provides more than half the effort to complete the activity 1 Dependent. The helper does all the effort to complete an activity 7 Patient refused to complete or attempt activity 9 The patient did not perform the activity before the current illness or injury 88 Not attempted due to Medical conditions or safety concerns Transfers (B, C, W/C) (FIM): 6 Scootin Rollin Supine to/from Sit: 6 Sit to/from Stand: 6 Gait Training Gait (FIM): 6 Distance (FIM): 3=150 ft Distance: 400' Gait Level of Assist: 6 Gait Assistive Device: FWW safe and functional with FWW Assessment Patient SAO2 taken by RT during treatment. Patient is currently at [facility] with all gross motor skills and is up PRN in hallway with spouse ambulating. PT to dismiss patient from services at this time with education with patient to continue with PRN ambulation. 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
[2016-09-17 12:00] VITALS: BP 149/71
[2016-09-17 16:00] VITALS: BP 130/71
[2016-09-17] MEDS: ENOXAPARIN 40 MG/0.4 ML (LOVENOX) SYR SC SCH (17:58)
[2016-09-17 20:00] VITALS: BP 145/76
[2016-09-17] MEDS: meTOproloL SUCCINATE 50 MG (TOPROL XL) TAB PO SCH (21:02)
[2016-09-18 00:56] VITALS: BP 118/57
[2016-09-18] MEDS: RT-ALBUTEROL/IPRATROPIUM 3 ML (DUONEB) VIAL INH SCH ×3 (02:46→10:54)
[2016-09-18] MEDS: aCETylcysteine 20% (MUCOMYST) 30ML SOLN VIAL INH SCH ×2 (02:46→10:54)
[2016-09-18 04:51] VITALS: BP 134/82
[2016-09-18] MEDS: inSUlin (REGULAR) HUMAN 1 UNIT/0.01 ML (CHARGE PER UNIT) SC SCH ×2 (06:04→11:53)
[2016-09-18] MEDS: metFORMIN 500 MG (GLUCOPHAGE) TAB PO SCH (06:54)
[2016-09-18] MEDS ORDERED: PANTOPRAZOLE 40 MG (PROTONIX) TAB PO SCH (07:00)
[2016-09-18 08:00] VITALS: BP 139/70
[2016-09-18] MEDS: SENNA W/DOCUSATE (SENOKOT S) TABLET PO SCH (08:13)
[2016-09-18] MEDS: LOSARTAN 50 MG (COZAAR) TAB PO SCH (08:13)
[2016-09-18] MEDS: METOCLOPRAMIDE 5 MG (REGLAN) TAB PO SCH (08:13)
--- NOTE | 2016-09-18 09:19 | Discharge Summary ---
Diagnosis/Chief Complaint Date of Admission Sep 11, 2016 at 14:15 Date of Discharge Admission Diagnosis Admission Diagnosis SEPSIS PNEUMONIA LACTIC ACIDOSIS COUGH EMESIS SUSPECTED ASPIRATION PNEUMONIA HYPOMAGNESEMIA DIABETES MELLITUS HYPERTENSION DEPRESSION Discharge Diagnosis SEPSIS PNEUMONIA LACTIC ACIDOSIS COUGH EMESIS SUSPECTED ASPIRATION PNEUMONIA HYPOMAGNESEMIA DIABETES MELLITUS HYPERTENSION DEPRESSION CONSTIPATION REFLUX Reason Hospital Visit PT IS AN 86 Y/O FEMALE WHO IS KNOWN TO ME FROM CLINIC. THE PATIENT REPORTS THAT SHE WAS FEELING CHILLED, AND FATIGUED AT HOME, STARTING TO HAVE ILLNESS SYMPTOMS. SHE CALLED HER DAUGHTER TO TELL HER SHE WAS NOT FEELING WELL. SHE THEN REPORTS THAT SHE STARTED TO FEEL NAUSEATED, AND HAD AN ACUTE EPISODE OF VOMITING AND DOESN'T REALLY REMEMBER A LOT AFTER THAT SHE SUSPECTS THAT SHE PASSED OUT. THE EMERGENCY DEPT PHYSICIAN REPORTS THAT [place] WAS MINIMALLY RESPONSIVE UPON ARRIVAL TO THE EMERGENCY DEPT. SHE HAD A LOW OXYGEN SATURATION, AND AFTER GETTING FLUIDS AND OXYGEN SHE STARTED TO BECOME MORE RESPONSIVE. Discharge Summary Discharge Physical Examination Allergies: Coded Allergies: amoxicillin (Verified Allergy, Intermediate, RASH, ITCHING, 02/28/16) ciprofloxacin (Verified Allergy, Intermediate, RASH, ITCHING, 02/28/16) Sulfa (Sulfonamide Antibiotics) (Verified Allergy, Unknown, 06/22/15) levofloxacin (Unverified Adverse Reaction, Mild, NAUSEA, 08/06/10) Vitals & I&Os General Appearance: Alert, Oriented X3, Cooperative HEENT: Atraumatic, PERRLA, Mucous Memb Moist/[place] Respiratory: Other (FAINT CRACKLES IN BASES, BUT IMPROVED AIR MOVEMENT) Cardiovascular: Regular Rate, Normal S1, Normal S2 Abdominal: Normal Bowel Sounds, Soft, No Tenderness Extremities: No Clubbing, No Cyanosis Skin: No Rashes, No Breakdown, No Significant Lesion Neuro: Normal Speech, Strength at 5/5 X4 Ext, Cranial Nerves 3-12 NL Psych/Mental Status: Mental Status NL, Mood NL Hospital Course SEPSIS PNEUMONIA LACTIC ACIDOSIS COUGH EMESIS SUSPECTED ASPIRATION PNEUMONIA HYPOMAGNESEMIA DIABETES MELLITUS HYPERTENSION DEPRESSION CONSTIPATION REFLUX SEPSIS WITH LACTIC ACIDOSIS - DUE TO HYPOXEMIA FROM SUSPECTED ASPIRATION PNEUMONIA PNEUMONIA - ON SEPSIS PROTOCOL WITH DUAL ANTIBIOTICS - STOP VANC - CONTINUE WITH ZITHROMAX AND ROCEPHIN - PT TO HOPEFULLY BE DISCHARGED TO HOME TOMORROW WITH OXYGEN, NEBULIZER TREATMENTS. RT TO COME BY AND DO AMBULATORY OXYGEN ON PATIENT FOR HOME OXYGEN QUALIFICATIONS, AND START AEROBIKA. EMESIS - ZOFRAN IV PRN HYPOMAGNESEMIA - REPLACEMENT PROTOCOL. DIABETES MELLITUS - RESTARTED METFORMIN - MONITOR FSBS ACHS. HYPERTENSION - RESTARTED LOSARTAN - METOPROLOL, MONITOR PRESSURE. DEPRESSION - STARTED [facility] DOES NOT HAVE LEXAPRO ON FORMULARY. DVT PROPHYLAXIS - SCD'S AND LOVENOX. GI PROPHYLAXIS WITH PANTOPRAZOLE - DISCUSSED WITH DR. SAN - CONCERN FOR ESOPHAGEAL REFLUX CAUSING ASPIRATION - HOSPITAL DOES NOT DO ESOPHAGEAL MANOMETRY. I HAVE HAD MY STAFF CONTACT DR. COX'S OFFICE FOR OUTPATIENT APPT ON DISCHARGE FROM HOSPITAL. Pending Labs Discharge Condition at discharge IMPROVING Instructions to patient/family Please see electonic discharge instructions given to patient. Discharge Medications Reviewed and agree with Discharge Medication list on patient's Discharge Instruction sheet Clinical Quality Measures DVT/VTE Risk/Contraindication: Risk Factor Score Per Nursin RFS Level Per Nursing on Admit: 4+=Very High NAVARRO OCONNELL MD Sep 18, 2016 09:19
[2016-09-18] MEDS ORDERED: IPRA3AMP INH (09:24)
[2016-09-18] MEDS ORDERED: AZIT250T5 PO (09:24)
[2016-09-18] MEDS ORDERED: CEFD300C3 PO (09:24)
[2016-09-18] MEDS ORDERED: CODE118S2 PO (09:24)
--- NOTE | 2016-09-18 09:27 | Discharge Inst-Home Health ---
Discharge Inst-to Home Health Patient Instructions Patient Instructions/FollowUp: follow up with raine in 2 weeks [place], [place] DISCHARGE ORDERS Allergies: Coded Allergies: amoxicillin (Verified Allergy, Intermediate, RASH, ITCHING, 02/28/16) ciprofloxacin (Verified Allergy, Intermediate, RASH, ITCHING, 02/28/16) Sulfa (Sulfonamide Antibiotics) (Verified Allergy, Unknown, 06/22/15) levofloxacin (Unverified Adverse Reaction, Mild, NAUSEA, 08/06/10) Height (Feet): 5 Height (Inches): 2.00 Weight (Pounds): 186 Weight (Ounces): 1.0 Weight (Kilograms): 85.2 Home Health Need/Face to Face Reason Pt Homebound weakness, cannot drive, I Have Seen Pt [id number]: Yes Date of Face to Face: Sep 18, 2016 Discharged To: Home Diagnosis/Conditions HH Order: pneumonia copd dyspnea weakness diabetes Consult/Follow Up/New Order *I certify that based on my findings, the following services are medically necessary Home Health Services: Services: Nursing Services, Physical Therapy-Evaluate & Treat My clinical findings support the need for the above services; see Diagnosis. Home O2 Qualification: y Home O2 Length of Need: lifetime Dicharge Diet: ADA Diet Discharge Medications: New, Converted, or Re-newed RX: Transmited to Pharmacy I certify that this patient is under my care and that I, a nurse practitioner or a physician; a transport assistant working with me, had a face to face encounter that - meets the physician face to face encounter requirements with this patient as dated. NAVARRO OCONNELL MD Sep 18, 2016 09:27
[2016-09-18 12:00] VITALS: BP 136/82
[2016-09-18 14:25] VITALS: BP 136/82
== END 2016-09-18 14:25 | disposition home health service (06) | DRG 871 ==
LOC: EDUNIT# 12:47 → ER 12:48 → ICU 14:15 → 4TH 09-13 13:20 → ENPENDDIS 09-18 14:00
PROVIDERS: ADMIT Family Medicine; ATTEND Family Medicine
DX: A41.9 Sepsis, unspecified organism (principal); J44.0 Chronic obstructive pulmonary disease with (acute) lower respiratory infection; J18.9 Pneumonia, unspecified organism; J69.0 Pneumonitis due to inhalation of food and vomit; R09.02 Hypoxemia; E11.40 Type 2 diabetes mellitus with diabetic neuropathy, unspecified; I10 Essential (primary) hypertension; E83.42 Hypomagnesemia; F32.9 Major depressive disorder, single episode, unspecified; Z99.81 Dependence on supplemental oxygen; Z85.42 Personal history of malignant neoplasm of other parts of uterus; Z79.84 Long term (current) use of oral hypoglycemic drugs
CPT/HCPCS: 36415; 51702; 71010; 71020; 71260; 74178; 80048; 80053; 81000; 82150; 82550; 82553; 82805; 82962; 83605; 83690; 83735; 83880; 84443; 84484; 85007; 85025; 85027; 85610; 85730; 87040; 93005; 93041; 94640; 94660; 94760; 94761; 96361; 96365; 96375

== ENCOUNTER → 2016-10-21 | Outpatient (CLI) | payer MEDICARE, OTHER ==
[~2016-10-21] MED LIST changes: +AZIT250T5 PO; +CEFD300C3 PO; +CODE118S2 PO; -ONDANSETRON 4 MG/2 ML (SDV) Z0FRAN ONE
--- NOTE | 2016-10-21 09:57 | Diagnostic Imaging Report ---
INDICATION: Dyspnea and cough. 0958 hours. PA and lateral views of the chest are obtained. Comparison is made study of 09/16/16. FINDINGS: Heart size and pulmonary vascularity are within normal limits. There is dependent atelectasis and/or pneumonitis in both lung bases however, there has been interval improvement in aeration of left base. No new abnormality is seen. There is advanced degenerative change about the shoulders. IMPRESSION: Improving aeration of left lung base with mild residual bibasilar atelectasis and/or pneumonitis, bilaterally. Dictated by: Dictated on workstation # [id number]
[2016-10-21 10:07] LABS: BASOPHILS % (AUTO) 0 % (0-10); EOSINOPHILS # (AUTO) 0.2 10^3/uL (0.0-0.3); EOSINOPHILS % (AUTO) 2 % (0-10); LYMPHOCYTES # (AUTO) 2.2 X 10^3 (1.0-4.0); LYMPHOCYTES % (AUTO) 14 % (12-44); MEAN CORPUSCULAR HEMOGLOBIN 29 PG (25-34); MEAN CORPUSCULAR HGB CONC 32 G/DL (32-36); MEAN CORPUSCULAR VOLUME 91 FL (80-99); MEAN PLATELET VOLUME 9.5 FL (7.4-10.4); MONOCYTES # (AUTO) 1.4 X 10^3 (0.0-1.0); MONOCYTES % (AUTO) 9 % (0-12); NEUTROPHILS # (AUTO) 11.8 X 10^3 (1.8-7.8); NEUTROPHILS % (AUTO) 75 % (42-75); PLATELET COUNT 332 10^3/uL (130-400); RED BLOOD COUNT 4.49 10^6/uL (4.35-5.85); RED CELL DISTRIBUTION WIDTH 14.2 % (10.0-14.5); WHITE BLOOD COUNT 15.7 10^3/uL (4.3-11.0)
[2016-10-21 10:34] LABS: BAND NEUTROPHILS 0 %; BASOPHILS % (MANUAL) 0 %; EOSINOPHILS % (MANUAL) 2 %; LYMPHOCYTES % (MANUAL) 9 %; NEUTROPHILS % (MANUAL) 73 %; REACTIVE LYMPHOCYTES 9 %
== END ==
LOC: RAD 09:08
PROVIDERS: ATTEND Internal Medicine Gastroenterology
DX: R06.02 Shortness of breath (principal)
CPT/HCPCS: 36415; 71020; 83880; 85007; 85027

== ENCOUNTER 2016-11-08 16:20 | Inpatient (IN) | payer MEDICARE, OTHER ==
[2016-11-08] VITALS (16 sets, daily range): BP systolic 77–125; BP diastolic 37–62
[~2016-11-08] VITALS: Ht 157.5 cm; Wt 84.8 kg
--- NOTE | 2016-11-08 16:34 | ED GI ---
General Stated Complaint: SYNCOPE,DEPRESSION Source of Information: Patient, EMS, Family ( and daughter) Exam Limitations: Other (clinical situation) History of Present Illness Time Seen By Provider: 16:33 Initial Comments Patient presents to ER by EMS after a noted history starting around noon today of nausea and weakness and fatigue and malaise. states she threw up a little bit 1 without any blood in it. He helped her to the bathroom she was unable to go. Last BM was yesterday. She is complaining of being mildly short of breath without any fevers, chills, sweats or presently with nausea. She is also having diffuse abdominal pain. She has no rash or itching. She has no known coronary disease and an EKG obtained on route by EMS demonstrated a possible ST depression per EMS. Allergies and Home Medications Allergies Coded Allergies: amoxicillin (Verified Allergy, Intermediate, RASH, ITCHING, 02/28/16) ciprofloxacin (Verified Allergy, Intermediate, RASH, ITCHING, 02/28/16) Sulfa (Sulfonamide Antibiotics) (Verified Allergy, Unknown, 06/22/15) levofloxacin (Unverified Adverse Reaction, Mild, NAUSEA, 08/06/10) Home Medications Azithromycin 250 Mg Tablet, 250 MG PO DAILY, #4 Prescribed by: NAVARRO OCONNELL on 09/18/16923 Cefdinir 300 Mg Capsule, 300 MG PO BID, #10 Prescribed by: NAVARRO OCONNELL on 09/18/16923 Escitalopram Oxalate 10 Mg Tablet, 10 MG PO 1700, (Reported) Famotidine 20 Mg Tablet, 20 MG PO BID WITH MEALS, (Reported) Ipratropium/Albuterol Sulfate 3 Ml Ampul.neb, 3 ML INH RTQ4HR for 30 Days, #120 Ref 3 Prescribed by: NAVARRO OCONNELL on 09/18/16923 Losartan Potassium 50 Mg Tablet, 50 MG PO DAILY, (Reported) Metformin HCl 500 Mg Tablet, 500 MG PO BID WITH MEALS, (Reported) Metoprolol Succinate 50 Mg Tab.er.24h, 50 MG PO HS, (Reported) Promethazine HCl/Codeine 118 Ml Syrup, 5-10 ML PO TID PRN for COUGH for 30 Days , #8 Prescribed by: NAVARRO OCONNELL on 09/18/16923 Review of Systems Constitutional: see HPI, No chills, No diaphoresis, No fever, malaise, weakness EENTM: No Blurred Vision, No Eye Pain, No Ear Pain, No Mouth Pain Respiratory: Cough, Denies Orthopnea, Shortness of Air, SOA With Exertion, Denies Wheezing Cardiovascular: Denies Chest Pain, Denies Edema, Denies Palpitations, Denies Syncope Gastrointestinal: Denies Abdomen Distended, Abdominal Pain (diffuse), Denies Constipated (last BM yesaterday), Denies Diarrhea, Denies Nausea, Denies Vomiting Genitourinary: Burning, Denies Discharge, Denies Frequency Musculoskeletal: No back pain, No joint pain Skin: No pruritus, No rash Psychiatric/Neurological: Denies Headache, Denies Numbness, Denies Paresthesia Past Yidngxe-Yqbewm-Vyvohb Hx Patient Social History Alcohol Use: Denies Use Recreational Drug Use: No Smoking Status: Never a Smoker Former Smoker/When Quit: Jun 02, 1985 2nd Hand Smoke Exposure: No Recent Foreign Travel: No Contact w/Someone Who Travel: No Recent Hopitalizations: Yes (UTI 1 MONTH AGO) Immunizations Up To Date Date of Pneumonia Vaccine: May 02, 2016 Date of Influenza Vaccine: May 21, 2016 Seasonal Allergies Seasonal Allergies: No Surgeries HX Surgeries: Yes (Hyterectomy 1961, Knee surgery 2007) Surgeries: Hysterectomy, Orthopedic Respiratory Hx Respiratory Disorders: Yes (WEARS HOME O2 AT [facility]) Respiratory Disorders: Pneumonia, COPD Cardiovascular Hx Cardiac Disorders: Yes (HX OF BBB) Cardiac Disorders: Hypertension Neurological Hx Neurological Disorders: Yes Neurological Disorders: Neuropathy Reproductive System Hx 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) Sexually Transmitted Disease: No 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 Genitourinary Hx Genitourinary Disorders: No (UTI 1 MONTH AGO) Gastrointestinal Hx Gastrointestinal Disorders: No Musculoskeletal Hx Musculoskeletal Disorders: Yes Musculoskeletal Disorders: Arthritis Endocrine Hx Endocrine Disorders: Yes Endocrine Disorders: Diabetes, Non-Insulin dep HEENT HX ENT Disorders: Yes HEENT Disorders: Cataract Loss of Vision: Denies Hearing Impairment: Hard of Hearing Cancer Hx Cancer: Yes Cancer: Uterine Psychosocial Hx Psychiatric Problems: No Integumentary HX Skin/Integumentary Disorder: No Blood Transfusions Hx Blood Disorders: No Family Medical History Significant Family History: Hypertension Physical Exam Vital Signs VS - Last 72 Hours, by Label 11/08/16 11/08/16 08:05 16:20 Temp 95.9 Pulse 87 81 Resp 18 B/P (MAP) 103/57 Pulse Ox 88 O2 Delivery Nasal Cannula O2 Flow Rate 3.00 Capillary Refill : General Appearance: WD/WN, no apparent distress HEENT: PERRL/EOMI, normal ENT inspection, TMs normal, pharynx normal Neck: non-tender, full range of motion, supple, normal inspection Respiratory: chest non-tender, lungs clear, normal breath sounds, no respiratory distress, no accessory muscle use Cardiovascular: normal peripheral pulses, regular rate, rhythm, no edema Peripheral Pulses: 2+ Dorsalis Pedis (R), 2+ Left Dors-Pedis (L), 3+ Radial Pulses (R), 3+ Radial Pulses (L) Gastrointestinal: normal bowel sounds, soft, no organomegaly, no pulsatile mass , No distended, No guarding, No rebound, tenderness (Diffusely Left and Right) Back: normal inspection, no CVA tenderness Neurologic/Psychiatric: no motor/sensory deficits, alert, oriented x 3 Skin: normal color, warm/dry Focused Exam Lactic Acid Level Laboratory Tests Test 11/08/16 17:37 Lactic Acid Level 2.50 MMOL/L (0.50-2.00) *H Progress/Results/Core Measures Results/Orders Lab Results Laboratory Tests Test 11/08/16 16:23 11/08/16 17:37 Range/Units White Blood Count 11.2 H 4.3-11.0 10^3/uL Red Blood Count 5.10 4.35-5.85 10^6/uL Hemoglobin 15.1 11.5-16.0 G/DL Hematocrit 46 35-52 % Mean Corpuscular Volume 91 80-99 FL Mean Corpuscular Hemoglobin 30 25-34 PG Mean Corpuscular Hemoglobin Concent 33 32-36 G/DL Red Cell Distribution Width 14.9 H 10.0-14.5 % Platelet Count 328 130-400 10^3/uL Mean Platelet Volume 9.5 7.4-10.4 FL Neutrophils (%) (Auto) 97 H 42-75 % Lymphocytes (%) (Auto) 3 L 12-44 % Monocytes (%) (Auto) 1 0-12 % Eosinophils (%) (Auto) 0 0-10 % Basophils (%) (Auto) 0 0-10 % Neutrophils # (Auto) 10.8 H 1.8-7.8 X 10^3 Lymphocytes # (Auto) 0.3 L 1.0-4.0 X 10^3 Monocytes # (Auto) 0.1 0.0-1.0 X 10^3 Eosinophils # (Auto) 0.0 0.0-0.3 10^3/uL Basophils # (Auto) 0.0 0.0-0.1 10^3/uL Neutrophils % (Manual) 67 % Lymphocytes % (Manual) 3 % Monocytes % (Manual) 1 % Eosinophils % (Manual) 0 % Basophils % (Manual) 0 % Metamyelocytes % 2 % Myelocytes % 1 % Band Neutrophils 26 % Blood Morphology Comment NORMAL Prothrombin Time 13.1 12.2-14.7 SEC INR Comment 1.0 0.8-1.4 Activated Partial Thromboplast Time 26 24-35 SEC Sodium Level 140 135-145 MMOL/L Potassium Level 3.5 L 3.6-5.0 MMOL/L Chloride Level 106 98-107 MMOL/L Carbon Dioxide Level 21 21-32 MMOL/L Anion Gap 13 5-14 MMOL/L Blood Urea Nitrogen 21 H 7-18 MG/DL Creatinine 1.12 0.60-1.30 MG/DL Estimat Glomerular Filtration Rate 46 BUN/Creatinine Ratio 19 Glucose Level 173 H 70-105 MG/DL Calcium Level 9.1 8.5-10.1 MG/DL Total Bilirubin 0.6 0.1-1.0 MG/DL Aspartate Amino Transf (AST/SGOT) 35 H 5-34 U/L Alanine Aminotransferase (ALT/SGPT) 22 0-55 U/L Alkaline Phosphatase 70 40-136 U/L Troponin I < 0.30 <0.30 NG/ML Total Protein 7.3 6.4-8.2 G/DL Albumin 3.7 3.2-4.5 G/DL Lipase 26 8-78 U/L Thyroid Stimulating Hormone (TSH) 2.64 0.35-4.94 UIU/ML Lactic Acid Level 2.50 *H 0.50-2.00 MMOL/L My Orders Orders - JOHN GARRISON Cbc With Automated Diff (11/08/16 16:34) Comprehensive Metabolic Panel (11/08/16 16:34) Lactic Acid Analyzer (11/08/16 16:34) Lipase (11/08/16 16:34) Protime With Inr (11/08/16 16:34) Partial Thromboplastin Time (11/08/16 16:34) Thyroid Stimulating Hormone (11/08/16 16:34) Troponin I (11/08/16 16:34) Ua Culture If Indicated (11/08/16 16:34) Chest 1 View, Ap/Pa Only (11/08/16 16:34) Ekg Tracing (11/08/16 16:34) Saline Lock/Iv-Start (11/08/16 16:34) Monitor-Rhythm Ecg Trace Only (11/08/16 16:34) Manual Differential (11/08/16 16:23) Saline Lock/Iv-Start (11/08/16 18:06) Ns Iv 1000 Ml (Sodium Chloride 0.9%) (11/08/16 18:06) Ns Iv 1000 Ml (Sodium Chloride 0.9%) (11/08/16 18:15) Blood Culture (11/08/16 18:11) Vital Signs Adult Sepsis Patie Q1HR (11/08/16 18:11) Ceftriaxone Injection (Rocephin Injectio (11/08/16 18:11) Remove Rings In Anticipation O (11/08/16 18:11) Ceftriaxone Injection (Rocephin Injectio (11/08/16 18:14) Ceftriaxone Injection (Rocephin Injectio (11/08/16 18:30) Ns Iv 500 Ml (Sodium Chloride 0.9%) (11/08/16 18:20) Sputum Culture (11/08/16 18:20) Azithromycin Injection (Zithromax Inject (11/08/16 18:30) Medications Given in ED Current Medications Medications Dose Ordered Sig/Lidia Route Start Time Stop Time Status Last Admin Dose Admin Azithromycin 500 mg/Sodium Chloride 250 ml @ 250 mls/hr ONCE ONCE IV 11/08/16 18:30 11/08/16 19:29 DC 11/08/16 20:51 250 MLS/HR Ceftriaxone Sodium 1,000 mg STK-MED ONCE .ROUTE 11/08/16 18:14 11/08/16 18:20 DC 11/08/16 19:19 1,000 MG Sodium Chloride 1,000 ml @ 0 mls/hr Q0M ONCE IV 11/08/16 18:06 11/08/16 18:10 DC 11/08/16 18:25 1,000 MLS/HR Vital Signs/I&O Vital Sign - Last 12Hours 11/08/16 11/08/16 08:05 16:20 Temp 95.9 Pulse 87 81 Resp 18 B/P (MAP) 103/57 Pulse Ox 88 O2 Delivery Nasal Cannula O2 Flow Rate 3.00 Progress Note #1: Time: 17:36 Progress Note Patient presents with acute progression of nausea and abdominal discomfort. Possible although unlikely anginal equivalent. She has a very tender abdomen so we'll get a CT of her abdomen as well as routine blood. Progress Note #2: Time: 18:10 Progress Note While interviewing the patient her previously normal blood pressure started dipping into the 90s and upper 80s systolic so a liter of normal saline bolus was ordered. Then lactate was called as greater than 2.0 from the lab. 20 mL/kg would be over 1600 mL so we'll give her 2 L bolus and start a second large-bore IV and work on getting her admitted to the hospital for sepsis. She is unable to produce urine so have the straight catheter. ECG Initial ECG Impression Date: Nov 08, 2016 Initial ECG Impression Time: 16:24 Initial ECG Rate: 88 Initial ECG Rhythm: Normal Sinus Initial ECG Intervals: QRS (widened 138) Initial ECG Intervals old LBB. NoSt Depression or elevation Initial ECG Impression: Nonspecific Changes (, not new) Diagnostic Imaging Diagonstic Imaging: Xray Plain Films/CT/US/NM/MRI: chest Comments LLL Infiltrate VIA [facility]. [place], [place] NAME: PALOMA GRESHAM [facility] REC#: [id number] PT STATUS: REG ER : 1930 PHYSICIAN: JOHN GARRISON MD ADMIT DATE: 11/08/16/ER Draft Date of Exam:11/08/16 CHEST 1 VIEW, AP/PA ONLY INDICATION: Shortness of breath. COMPARISON: 10/21/2016. FINDINGS: Portable chest shows a developing alveolar infiltrate in the left lung base. Mild prominence of the interstitial markings noted bilaterally. The heart is not enlarged. There is no pulmonary edema. No pleural effusions. IMPRESSION: 1. Developing bilateral interstitial infiltrates with some consolidation noted in the left lung base. 2. No changes are seen to indicate congestive failure. Dictated on workstation # [id number] Dict: 11/08/16 1747 Trans: 11/08/16 1749 [id number] Interpreted by: ALANA MARSHALL MD Electronically signed by: Reviewed: Reviewed by Me Departure Communication Time/Spoke to Admitting Phy: 18:[address] Villanueva about the pt and how the pt is Severe Sepsis. IVF given adn IV Abx started. Pneumonia Admission Pseudomonal Risk: No known risk HCAP with risk for mulit-drug: Hospitalized>2d (pst 90d) Patient allergy/sensitivity/re: Penicilins, Other (Bactrim and fluoroquinolones ) Pneumonia order set available: CAP ICU Notes Ceftriaxone and azithromycin will be given in the ER. Impression Impression: Primary Impression: Severe sepsis Additional Impressions: PNA (pneumonia) Qualified Codes: J18.1 - Lobar pneumonia, unspecified organism UTI (urinary tract infection) Disposition: ADMITTED INPATIENT Condition: Stable Decision to Admit Reason: Admit from ER (General) Decision to Admit/Date: Nov 08, 2016 Time/Decision to Admit Time: 18:20 Departure-Patient Inst. Referrals: NAVARRO OCONNELL MD (PCP/Family) Primary Care Physician Copy Copies To 1: NAVARRO OCONNELL MD, TITUS J Nov 08, 2016 16:34
[2016-11-08 16:42] LABS: BASOPHILS % (AUTO) 0 % (0-10); EOSINOPHILS % (AUTO) 0 % (0-10); LYMPHOCYTES # (AUTO) 0.3 X 10^3 (1.0-4.0); LYMPHOCYTES % (AUTO) 3 % (12-44); MEAN CORPUSCULAR HEMOGLOBIN 30 PG (25-34); MEAN CORPUSCULAR HGB CONC 33 G/DL (32-36); MEAN CORPUSCULAR VOLUME 91 FL (80-99); MEAN PLATELET VOLUME 9.5 FL (7.4-10.4); MONOCYTES # (AUTO) 0.1 X 10^3 (0.0-1.0); MONOCYTES % (AUTO) 1 % (0-12); NEUTROPHILS # (AUTO) 10.8 X 10^3 (1.8-7.8); NEUTROPHILS % (AUTO) 97 % (42-75); PLATELET COUNT 328 10^3/uL (130-400); RED CELL DISTRIBUTION WIDTH 14.9 % (10.0-14.5); WHITE BLOOD COUNT 11.2 10^3/uL (4.3-11.0)
[2016-11-08 16:47] LABS: PROTHROMBIN TIME PATIENT 13.1 SEC (12.2-14.7)
[2016-11-08 16:55] LABS: ALANINE AMINOTRANSFERASE 22 U/L (0-55); ALBUMIN 3.7 G/DL (3.2-4.5); ANION GAP 13 MMOL/L (5-14); ASPARTATE AMINO TRANSFERASE 35 U/L (5-34); BILIRUBIN,TOTAL 0.6 MG/DL (0.1-1.0); BLOOD UREA NITROGEN 21 MG/DL (7-18); BUN/CREATININE RATIO 19; CALCIUM 9.1 MG/DL (8.5-10.1); CARBON DIOXIDE 21 MMOL/L (21-32); CHLORIDE 106 MMOL/L (98-107); CREATININE SERUM 1.12 MG/DL (0.60-1.30); GFR ESTIMATED 46; GLUCOSE 173 MG/DL (70-105); LIPASE 26 U/L (8-78); POTASSIUM 3.5 MMOL/L (3.6-5.0); SODIUM 140 MMOL/L (135-145); TOTAL PROTEIN 7.3 G/DL (6.4-8.2)
[2016-11-08 17:03] LABS: BAND NEUTROPHILS 26 %; BASOPHILS % (MANUAL) 0 %; EOSINOPHILS % (MANUAL) 0 %; LYMPHOCYTES % (MANUAL) 3 %; METAMYELOCYTES % 2 %; MYELOCYTES % 1 %; NEUTROPHILS % (MANUAL) 67 %
[2016-11-08 17:15] LABS: THYROID STIMULATING HORMONE 2.64 UIU/ML (0.35-4.94); TROPONIN I < 0.30 NG/ML (<0.30)
--- NOTE | 2016-11-08 17:50 | Diagnostic Imaging Report ---
INDICATION: Shortness of breath. COMPARISON: 10/21/2016. FINDINGS: Portable chest shows a developing alveolar infiltrate in the left lung base. Mild prominence of the interstitial markings noted bilaterally. The heart is not enlarged. There is no pulmonary edema. No pleural effusions. IMPRESSION: 1. Developing bilateral interstitial infiltrates with some consolidation noted in the left lung base. 2. No changes are seen to indicate congestive failure. Dictated by: Dictated on workstation # [id number]
[2016-11-08] MEDS ORDERED: NS IV 1000 ML 1,000 ML IV ONE (18:06)
[2016-11-08] MEDS ORDERED: cefTRIAXone 1 GM (ROCEPHIN) VIAL IV STA (18:11)
[2016-11-08] MEDS ORDERED: cefTRIAXone 1 GM (ROCEPHIN) VIAL ONE (18:14)
[2016-11-08] MEDS ORDERED: NS IV 500 ML 500 ML IV ONE (18:20)
[2016-11-08] MEDS ORDERED: AZITHROMYCIN INJECTION 500 MG in NS (IVPB) 250 ML IV ONE (18:30)
[2016-11-08] MEDS ORDERED: cefTRIAXone INJECTION 1,000 MG in NS (IVPB) 50 ML IV ONE (18:30)
[2016-11-08] MEDS: NS IV 1000 ML 1,000 ML IV SCH ×2 (19:00→20:51)
[2016-11-08 19:18] LABS: KETONES,URINE 1+ (NEGATIVE); LEUKOCYTE ESTERASE ,URINE 1+ (NEGATIVE); NITRITE,URINE NEGATIVE (NEGATIVE); PH,URINE 5 (5-9); PROTEIN,URINE 2+ (NEGATIVE); UROBILINOGEN,URINE 1 MG/DL (NORMAL)
[2016-11-08 19:36] LABS: BILIRUBIN,URINE 1+ (NEGATIVE)
[2016-11-08] MEDS ORDERED: NS IV 1000 ML 2,500 ML IV PRN (20:30)
[2016-11-08] MEDS: NOREPINEPHRINE 4 MG in D5W 250 ML (IVPB) 250 ML IV SCH (20:56)
[2016-11-08] MEDS ORDERED: VANCOMYCIN 1250 MG/NS 250 ML IVPB IV ONE ×2 (21:45)
[2016-11-08] MEDS ORDERED: VANCOMYCIN 1 GM/NS 250 ML IVPB IV ONE ×2 (21:45)
[2016-11-08] MEDS ORDERED: ALBUMIN 5% 12.5 GM/250 ML 500 ML IV ONE ×2 (22:30→22:45)
[2016-11-09] VITALS (14 sets, daily range): BP systolic 98–127; BP diastolic 44–73
[2016-11-09] MEDS: FAMOTIDINE 20 MG (PEPCID) TABLET PO SCH ×2 (00:30→08:11)
[2016-11-09 04:02] LABS: BASOPHILS % (AUTO) 0 % (0-10); EOSINOPHILS % (AUTO) 0 % (0-10); LYMPHOCYTES # (AUTO) 0.4 X 10^3 (1.0-4.0); LYMPHOCYTES % (AUTO) 3 % (12-44); MEAN CORPUSCULAR HEMOGLOBIN 29 PG (25-34); MEAN CORPUSCULAR HGB CONC 32 G/DL (32-36); MEAN CORPUSCULAR VOLUME 91 FL (80-99); MEAN PLATELET VOLUME 9.3 FL (7.4-10.4); MONOCYTES # (AUTO) 0.2 X 10^3 (0.0-1.0); MONOCYTES % (AUTO) 2 % (0-12); NEUTROPHILS # (AUTO) 10.3 X 10^3 (1.8-7.8); NEUTROPHILS % (AUTO) 95 % (42-75); PLATELET COUNT 255 10^3/uL (130-400); RED CELL DISTRIBUTION WIDTH 14.9 % (10.0-14.5); WHITE BLOOD COUNT 10.9 10^3/uL (4.3-11.0)
[2016-11-09] MEDS: NOREPINEPHRINE 4 MG in D5W 250 ML (IVPB) 250 ML IV SCH ×2 (04:24→11:02)
[2016-11-09 04:25] LABS: ALBUMIN 3.1 G/DL (3.2-4.5); BILIRUBIN,TOTAL 0.6 MG/DL (0.1-1.0); CALCIUM 7.8 MG/DL (8.5-10.1); CREATININE SERUM 0.95 MG/DL (0.60-1.30); MAGNESIUM 1.4 MG/DL (1.8-2.4); PHOSPHORUS 3.3 MG/DL (2.3-4.7); POTASSIUM 4.2 MMOL/L (3.6-5.0); TOTAL PROTEIN 5.5 G/DL (6.4-8.2)
[2016-11-09] MEDS: MAGNESIUM 1 GM/100 ML IVPB 100 ML IV SCH ×2 (04:43→05:34)
[2016-11-09] MEDS: NS IV 1000 ML 1,000 ML IV SCH ×2 (05:33→20:25)
[2016-11-09] MEDS ORDERED: POTASSIUM CL 10MEQ/50ML IVPB 50 ML IV SCH (06:00)
[2016-11-09] MEDS ORDERED: KCL 20 MEQ TAB (K-DUR) PO SCH (06:00)
[2016-11-09] MEDS ORDERED: MAGNESIUM 1 GM/100 ML IVPB 100 ML IV SCH (06:00)
[2016-11-09] MEDS: UMECLIDINIUM BROMIDE (INCRUSE ELLIPTA) 7'S IH SCH (07:58)
[2016-11-09] MEDS: RT-ALBUTEROL/IPRATROPIUM 3 ML (DUONEB) VIAL INH SCH ×3 (07:58→19:04)
[2016-11-09] MEDS: VANCOMYCIN 1250 MG/NS 250 ML IVPB IV SCH ×2 (08:11)
[2016-11-09] MEDS ORDERED: FLUT1AER IH (08:22)
[2016-11-09] MEDS ORDERED: VANCOMYCIN 500 MG/NS 100 ML IVPB IV SCH ×2 (09:00)
--- NOTE | 2016-11-09 10:23 | History & Physicial ---
History of Present Illness History of Present Illness Reason for visit/HPI This is an 86 year old female with a history of admission 2months ago for pneumonia who presented to the emergency room with nausea, weakness, fatigue and abdominal pain. She was hypotensive with blood pressures 70s/40s in the emergency room and appeared septic. Her lactic acid was elevated at 2.5 with an elevated WBC count of 11.2. She had fluid resuscitation of 3L NS in ER with ongoing hypotension. She was found to have bilateral bibasilar pulmonary infiltrates on CXR. She will be admitted to the ICU for sepsis and placed on sepsis protocol with triple therapy antibiotics. Date of Admission Nov 08, 2016 at 18:35 Time Seen by Provider: 10:23 I consulted on this patient on 11/09/16 10:18 Attending Physician Orville Barrios DO Admitting Physician Navarro Avina MD Consult Allergies and Home Medications Allergies Coded Allergies: amoxicillin (Verified Allergy, Intermediate, RASH, ITCHING, 02/28/16) ciprofloxacin (Verified Allergy, Intermediate, RASH, ITCHING, 02/28/16) Sulfa (Sulfonamide Antibiotics) (Verified Allergy, Unknown, 06/22/15) levofloxacin (Unverified Adverse Reaction, Mild, NAUSEA, 08/06/10) Home Medications Escitalopram Oxalate 10 Mg Tablet, 10 MG PO 1700, (Reported) Famotidine 20 Mg Tablet, 20 MG PO BID WITH MEALS, (Reported) Fluticasone/Vilanterol Unknown Strength Blst.w.dev, Unknown Dose IH DAILY, ( Reported) Ipratropium/Albuterol Sulfate 3 Ml Ampul.neb, 3 ML INH RTQ4HR for 30 Days, #120 Ref 3 Prescribed by: NAVARRO AVINA on 09/18/1624 Losartan Potassium 50 Mg Tablet, 50 MG PO DAILY, (Reported) Metformin HCl 500 Mg Tablet, 500 MG PO BID WITH MEALS, (Reported) Metoprolol Succinate 50 Mg Tab.er.24h, 50 MG PO HS, (Reported) Promethazine HCl/Codeine 118 Ml Syrup, 5-10 ML PO TID PRN for COUGH for 30 Days , #8 Prescribed by: NAVARRO AVINA on 09/18/16 09 Past Jthrulv-Nypsre-Ejkiqq Hx Patient Social History Alcohol Use: Denies Use Recreational Drug Use: No Smoking Status: Never a Smoker Former smoker/When Quit: Jun 02, 1985 2nd Hand Smoke Exposure: No Physical Abuse Screen: No Sexual Abuse: No Recent Foreign Travel: No Contact w/other who traveled: No Recent Hopitalizations: Yes (UTI 1 MONTH AGO) Recent Infectious Disease Expo: No Immunizations Up To Date Date of Pneumonia Vaccine: May 02, 2016 Date of Influenza Vaccine: May 21, 2016 Seasonal Allergies Seasonal Allergies: No Surgeries HX Surgeries: Yes (Hyterectomy 1961, Knee surgery 2007) Surgeries: Hysterectomy, Orthopedic Respiratory Hx Respiratory Disorders: Yes (WEARS HOME O2 AT [facility]) Respiratory Disorders: Pneumonia Cardiovascular Hx Cardiovascular Disorders: Yes (HX OF BBB) Cardiac Disorders: Hypertension Neurological Hx Neurological Disorders: Yes Neurological Disorders: Neuropathy Reproductive System Hx 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) Sexually Transmitted Disease: No HIV/AIDS: No Genitourinary Hx Genitourinary Disorders: No (UTI 1 MONTH AGO) Gastrointestinal Hx Gastrointestinal Disorders: No Musculoskeletal Hx Musculoskeletal Disorders: Yes Musculoskeletal Disorders: Arthritis Endocrine Hx Endocrine Disorders: Yes Endocrine Disorders: Diabetes, Non-Insulin dep HEENT HX ENT Disorders: Yes HEENT Disorders: Cataract Loss of Vision: Denies Hearing Impairment: Hard of Hearing Cancer Hx Cancer: Yes Cancer: Uterine Psychosocial Hx Psychiatric Problems: No Integumentary HX Skin/Integumentary Disorder: No Blood Transfusions Hx Blood Disorders: No Family Medical History Significant Family History: Hypertension Constitutional: malaise, weakness EENTM: No blurred vision, No dental problems, No double vision, No ear discharge, No ear pain, No epistaxis, No eye pain, No hearing loss, No hoarseness, No mouth pain, No mouth swelling, No no symptoms reported, No nose congestion, No nose pain, No other, No see HPI, No tearing, No throat pain, No throat swelling, No vision loss Respiratory: short of breath Cardiovascular: No no symptoms reported, No see HPI, No chest pain, No edema, No Hx of Intervention, No palpitations, No syncope, No vascular heart diseas, No other Gastrointestinal: abdominal pain (diffuse), nausea, vomiting (x1 episode) Genitourinary: No no symptoms reported, No see HPI, No decreased output, No discharge, No dysuria, No frequency, No hematuria, No hesitancy, No incontinence , No nocturia, No pain, No other Musculoskeletal: No no symptoms reported, No see HPI, No back pain, No gout, No joint pain, No joint swelling, No muscle pain, No muscle stiffness, No muscle cramps, No muscle twitching, No muscle weakness, No neck pain, No other Skin: No no symptoms reported, No see HPI, No change in color, No change in hair/nails, No dryness, No hx of skin cancer, No lesions, No lumps, No pruritus , No rash, No other Psychiatric/Neurological: Weakness Physical Exam Vital Signs Vital Sign - Last 12Hours 11/08/16 11/08/16 08:05 16:20 Temp 95.9 Pulse 87 Resp 18 B/P (MAP) 103/57 Pulse Ox 88 O2 Delivery Nasal Cannula O2 Flow Rate 3.00 Capillary Refill : Less Than 3 Seconds General Appearance: No Apparent Distress HEENT: Normal ENT Inspection Neck: Supple Respiratory: Crackles (bibasilar and left middle lobe) Cardiovascular: Regular Rate, Rhythm, Systolic Murmur Gastrointestinal: Non Tender, Soft, Abnormal Bowel Sounds Rectal: Deferred Back: Normal Inspection Extremity: Non Tender, No Calf Tenderness, No Pedal Edema, Other (SCDs in place ) Neurologic/Psychiatric: Alert, Oriented x3, Motor Weakness (diffuse) Skin: Normal Color, Warm/Dry Comments Laboratory Tests 11/08/16 16:23: White Blood Count 11.2H, Red Blood Count 5.10, Hemoglobin 15.1, Hematocrit 46, Mean Corpuscular Volume 91, Mean Corpuscular Hemoglobin 30, Mean Corpuscular Hemoglobin Concent 33, Red Cell Distribution Width 14.9H, Platelet Count 328, Mean Platelet Volume 9.5, Neutrophils (%) (Auto) 97H, Lymphocytes (%) (Auto) 3L , Monocytes (%) (Auto) 1, Eosinophils (%) (Auto) 0, Basophils (%) (Auto) 0, Neutrophils # (Auto) 10.8H, Lymphocytes # (Auto) 0.3L, Monocytes # (Auto) 0.1, Eosinophils # (Auto) 0.0, Basophils # (Auto) 0.0, Neutrophils % (Manual) 67, Lymphocytes % (Manual) 3, Monocytes % (Manual) 1, Eosinophils % (Manual) 0, Basophils % (Manual) 0, Metamyelocytes % 2, Myelocytes % 1, Band Neutrophils 26 , Blood Morphology Comment NORMAL, Prothrombin Time 13.1, INR Comment 1.0, Activated Partial Thromboplast Time 26, Sodium Level 140, Potassium Level 3.5L, Chloride Level 106, Carbon Dioxide Level 21, Anion Gap 13, Blood Urea Nitrogen 21H, Creatinine 1.12, Estimat Glomerular Filtration Rate 46, BUN/Creatinine Ratio 19, Glucose Level 173H, Calcium Level 9.1, Total Bilirubin 0.6, Aspartate Amino Transf (AST/SGOT) 35H, Alanine Aminotransferase (ALT/SGPT) 22, Alkaline Phosphatase 70, Troponin I < 0.30, Total Protein 7.3, Albumin 3.7, Lipase 26, Thyroid Stimulating Hormone (TSH) 2.64 11/08/16 17:37: Lactic Acid Level 2.50*H 11/08/16 19:09: Urine Color YELLOW, Urine Clarity SLIGHTLY CLOUDY, Urine pH 5, Urine Specific [place] 1.025H, Urine Protein 2+H, Urine Glucose (UA) NEGATIVE, Urine Ketones 1+ H, Urine Nitrite NEGATIVE, Urine Bilirubin 1+H, Urine Urobilinogen 1, Urine Leukocyte Esterase 1+H, Urine RBC (Auto) NEGATIVE, Urine RBC NONE, Urine WBC 2-5 , Urine Squamous Epithelial Cells 2-5, Urine Crystals PRESENTH, Urine Amorphous Sediment LARGE ROLA URATESH, Urine Bacteria FEWH, Urine Casts NONE, Urine Mucus NEGATIVE, Urine Culture Indicated NO 11/08/16 20:10: Lactic Acid Level 2.62*H 11/09/16 03:28: White Blood Count 10.9, Red Blood Count 4.00L, Hemoglobin 11.6#, Hematocrit 37, Mean Corpuscular Volume 91, Mean Corpuscular Hemoglobin 29, Mean Corpuscular Hemoglobin Concent 32, Red Cell Distribution Width 14.9H, Platelet Count 255, Mean Platelet Volume 9.3, Neutrophils (%) (Auto) 95H, Lymphocytes (%) (Auto) 3L , Monocytes (%) (Auto) 2, Eosinophils (%) (Auto) 0, Basophils (%) (Auto) 0, Neutrophils # (Auto) 10.3H, Lymphocytes # (Auto) 0.4L, Monocytes # (Auto) 0.2, Eosinophils # (Auto) 0.0, Basophils # (Auto) 0.0, Sodium Level 141, Potassium Level 4.2, Chloride Level 112H, Carbon Dioxide Level 19L, Anion Gap 10, Blood Urea Nitrogen 18, Creatinine 0.95, Estimat Glomerular Filtration Rate 56, BUN/ Creatinine Ratio 19, Glucose Level 141H, Calcium Level 7.8L, Phosphorus Level 3.3, Magnesium Level 1.4L, Total Bilirubin 0.6, Aspartate Amino Transf (AST/SGOT ) 23, Alanine Aminotransferase (ALT/SGPT) 14, Alkaline Phosphatase 40, Total Protein 5.5L, Albumin 3.1L 11/09/16 04:55: Lactic Acid Level 1.04 Assessment/Plan Assessment and Plan 1. Sepsis--on sepsis protocol with improved lactic acid and blood pressure, continue triple therapy abx until culture results obtained, transfer to floor, add 2. Bibasilar Pneumonia--continue triple abx coverage pending cultures and monitor CXR 3. Weakness--start PT 4. Hypertension--with current hypotension will hold home BP meds and monitor BP Problems: Clinical Quality Measures DVT/VTE Risk/Contraindication: Risk Factor Score Per Nursin RFS Level Per Nursing on Admit: 4+=Very High Pneumonia: Pseudomonal Risk: No known risk HCAP with risk for mulit-drug: Hospitalized>2d (pst 90d) ORVILLE BARRIOS DO Nov 09, 2016 10:23
--- NOTE | 2016-11-09 10:34 | Diagnostic Imaging Report ---
INDICATION: Sepsis. Comparison made with prior examination of 11/08/2016. FINDINGS: There is cardiomegaly. There is moderate central pulmonary venous congestion. There are bibasilar infiltrates. There is no pleural effusion or pneumothorax. Mediastinum is unremarkable. IMPRESSION: Cardiomegaly and moderate central pulmonary venous congestion with bibasilar pulmonary infiltrates. Dictated by: Dictated on workstation # [id number]
[2016-11-09] MEDS: ENOXAPARIN 40 MG/0.4 ML (LOVENOX) SYR SC SCH (11:00)
[2016-11-09] MEDS: inSUlin (REGULAR) HUMAN 1 UNIT/0.01 ML (CHARGE PER UNIT) SC SCH ×3 (11:06→21:50)
--- NOTE | 2016-11-09 11:26 | Physical Therapy Evaluation ---
PT Evaluation-General Medical Diagnosis Admission Date Nov 08, 2016 at 18:35 Medical Diagnosis: Sepsis, pneumonia Onset Date: Nov 08, 2016 Therapy Diagnosis Therapy Diagnosis: weakness, limited mobility Height/Weight Height (Feet): 5 Height (Inches): 2.00 Weight (Pounds): 185 Weight (Ounces): 0.0 Precautions Precautions/Isolations: Standard Precautions Referral Physician: Elsa Villanueva DO Reason for Referral: Evaluation/Treatment Medical History Pertinent Medical History: Arthritis, DM, HTN, Neuropathy Additional Medical History uterine cancer Current History hypotension, sepsis, pneumonia Reviewed History: Yes Social History Home: Multilevel Current Living Status: Significant Other Entry Into Home: Stairs With Railing Prior/Core FIM Prior Level of Function Functional [place] Measure 0=Not Assessed/NA 4=Minimal Assistance 1=Total Assistance 5=Supervision or Setup 2=Maximal Assistance 6=Modified [place] 3=Moderate Assistance 7=Complete [place] Bed Mobility: 6 Transfers (B,C,W/C) (FIM): 6 PT Evaluation-Current Pt/Family Goals Return home. Objective Patient Orientation: Person, Place, Time, Situation Problem Solving: Good Attachments: SCD's, Oxygen, IV ROM/Strength ROM Upper Extremities WFL ROM Lower Extremities WFL Strength Upper Extremities 4-/5 (B) Strenght Lower Extremities 4-/5 (B) Neuromuscular (Tone, Coordination, Reflexes) intact (B) LE reflexes. Pt has Hx of peripheral neuropathy in (B) feet. Sensory Vision: Functional Hearing: Functional Sensation Right Upper Extremit: Intact Sensation Left Upper Extremity: Intact Sensation Right Lower Extremit: Impaired Sensation Left Lower Extremity: Impaired Sensation Lower Extremities Hx of peripheral neuropathy (B) feet. Transfers Functional [place] Measure 0=Not Assessed/NA 4=Minimal Assistance 1=Total Assistance 5=Supervision or Setup 2=Maximal Assistance 6=Modified [place] 3=Moderate Assistance 7=Complete [place] Transfers (B, C, W/C) (FIM): 5 Scootin Rollin Supine to/from Sit: 5 Sit to/from Stand: 5 Gait Mode of Locomotion: Walk Anticipated Mode of Locomotion: Walk Balance Sitting Static: Normal Sitting Dynamic: Good Assessment/Needs Pt able to perform supine to/from sitting with SBA. She noted dizziness while sitting, and asked to lie down before attempting to stand. Rehab Potential: Good PT Short Term Goals Short Term Goals Time Frame: Nov 23, 2016 Transfers (B,C,W/C) (FIM): 6 Gait (FIM): 6 Distance (FIM): 3=150 ft Gait Level of Assist: 6 Gait Assistive Device: FWW PT Plan Problem List Problem List: Activity Tolerance, Functional Strength, Safety, Balance, Gait, Transfer Treatment/Plan Treatment Plan: Continue Plan of Care Treatment Plan: Bed Mobility, Functional Activity Gómez, Functional Strength, Gait, Therapeutic Exercise, Transfers Treatment Duration: Nov 23, 2016 # of days/week 5 Visits Per Week: 5 Time/GCodes Time In: 1100 Time Out: 1125 Total Billed Treatment Time: 25 Total Billed Treatment 1, bill Choudhary Codes Necessary: COBY Bo PT Nov 09, 2016 11:26
[2016-11-09] MEDS: cefTRIAXone INJECTION 1,000 MG in NS (IVPB) 50 ML IV SCH (17:32)
[2016-11-09] MEDS: AZITHROMYCIN 500 MG/NS 250 ML IVPB IV SCH ×2 (18:10)
[2016-11-09] MEDS: RT-ADVAIR HFA 115/21 MCG PER PUFF IH SCH (19:04)
[2016-11-10 00:14] VITALS: BP 124/62
[2016-11-10 04:40] VITALS: BP 101/66
[2016-11-10 04:54] LABS: BASOPHILS % (AUTO) 0 % (0-10); EOSINOPHILS # (AUTO) 0.2 10^3/uL (0.0-0.3); EOSINOPHILS % (AUTO) 5 % (0-10); LYMPHOCYTES # (AUTO) 0.8 X 10^3 (1.0-4.0); LYMPHOCYTES % (AUTO) 17 % (12-44); MEAN CORPUSCULAR HEMOGLOBIN 30 PG (25-34); MEAN CORPUSCULAR HGB CONC 32 G/DL (32-36); MEAN CORPUSCULAR VOLUME 92 FL (80-99); MEAN PLATELET VOLUME 9.1 FL (7.4-10.4); MONOCYTES # (AUTO) 0.5 X 10^3 (0.0-1.0); MONOCYTES % (AUTO) 10 % (0-12); NEUTROPHILS # (AUTO) 3.3 X 10^3 (1.8-7.8); NEUTROPHILS % (AUTO) 68 % (42-75); PLATELET COUNT 197 10^3/uL (130-400); RED BLOOD COUNT 3.89 10^6/uL (4.35-5.85); RED CELL DISTRIBUTION WIDTH 15.4 % (10.0-14.5); WHITE BLOOD COUNT 4.8 10^3/uL (4.3-11.0)
[2016-11-10 05:21] LABS: ALANINE AMINOTRANSFERASE 12 U/L (0-55); ANION GAP 9 MMOL/L (5-14); ASPARTATE AMINO TRANSFERASE 15 U/L (5-34); BILIRUBIN,TOTAL 0.3 MG/DL (0.1-1.0); BLOOD UREA NITROGEN 11 MG/DL (7-18); BUN/CREATININE RATIO 14; CALCIUM 7.9 MG/DL (8.5-10.1); CARBON DIOXIDE 19 MMOL/L (21-32); CHLORIDE 115 MMOL/L (98-107); GFR ESTIMATED > 60; GLUCOSE 115 MG/DL (70-105); MAGNESIUM 1.8 MG/DL (1.8-2.4); PHOSPHORUS 2.2 MG/DL (2.3-4.7); POTASSIUM 3.9 MMOL/L (3.6-5.0); SODIUM 143 MMOL/L (135-145); TOTAL PROTEIN 5.5 G/DL (6.4-8.2)
[2016-11-10] MEDS: inSUlin (REGULAR) HUMAN 1 UNIT/0.01 ML (CHARGE PER UNIT) SC SCH ×4 (06:24→21:12)
[2016-11-10] MEDS: RT-ADVAIR HFA 115/21 MCG PER PUFF IH SCH ×2 (07:03→19:51)
[2016-11-10] MEDS: RT-ALBUTEROL/IPRATROPIUM 3 ML (DUONEB) VIAL INH SCH ×3 (07:03→19:51)
[2016-11-10] MEDS ORDERED: TROUGH ORDER-PHARMACY XX NR (08:00)
[2016-11-10] MEDS: UMECLIDINIUM BROMIDE (INCRUSE ELLIPTA) 7'S IH SCH (08:06)
[2016-11-10 08:38] VITALS: BP 134/63
[2016-11-10] MEDS: VANCOMYCIN 1250 MG/NS 250 ML IVPB IV SCH ×2 (08:47)
[2016-11-10] MEDS: FAMOTIDINE 20 MG (PEPCID) TABLET PO SCH (08:51)
[2016-11-10] MEDS: ENOXAPARIN 40 MG/0.4 ML (LOVENOX) SYR SC SCH (10:46)
[2016-11-10 11:57] VITALS: BP 138/77
--- NOTE | 2016-11-10 12:42 | Progress Note (SOAP) ---
Subjective Date Seen by Provider: Nov 10, 2016 Time Seen by Provider: 12:38 Subjective/Events-last exam Fwup sepsis, bibasilar pneumonia, weakness, HTN. Only complaint is of being on a heart healthy diet. Review of Systems General: Fatigue Pulmonary: No Dyspnea, No Cough, No Pleuritic Chest Pain, No Other Cardiovascular: No: Chest Pain, Edema, Lt Headedness, Orthopnea, Other, Palpitations, Paroxysmal Noc. Dyspnea Gastrointestinal: No: Abdominal Pain, Constipation, Diarrhea, Hematochezia, Melena, Nausea, Other, Vomiting Neurological: Weakness Objective Exam Vital Signs Date Time Temp Pulse Resp B/P (MAP) Pulse Ox O2 Delivery O2 Flow Rate FiO2 11/10/16 11:57 98.4 74 20 138/77 97 Nasal Cannula 2.00 11/10/16 08:38 96.0 85 18 134/63 93 Nasal Cannula 1.50 11/10/16 08:07 92 11/10/16 08:07 97 Nasal Cannula 2.00 11/10/16 07:31 83 11/10/16 07:12 Nasal Cannula 11/10/16 07:03 92 Nasal Cannula 2.00 11/10/16 04:40 98.3 78 18 101/66 93 Nasal Cannula 1.50 11/10/16 01:00 78 11/10/16 00:14 98.1 87 18 124/62 93 Nasal Cannula 5.00 11/09/16 20:00 98.1 107 18 116/73 95 Nasal Cannula 5.00 11/09/16 20:00 97 Nasal Cannula 3.00 11/09/16 19:07 Nasal Cannula 11/09/16 19:04 92 Nasal Cannula 2.50 11/09/16 19:00 83 11/09/16 16:43 97.5 103 16 107/51 93 Nasal Cannula 3.00 11/09/16 15:44 97 Nasal Cannula 3.00 11/09/16 15:00 87 Nasal Cannula 0.50 11/09/16 13:31 75 I & O 11/10/16 07:00 Intake Total 1250 ml Output Total 700 ml Balance 550 ml Capillary Refill : Less Than 3 Seconds General Appearance: No Apparent Distress Neck: Supple Respiratory: Crackles (fine in bases), Decreased Breath Sounds Cardiovascular: Regular Rate, Rhythm, Systolic Murmur Gastrointestinal: normal bowel sounds, non tender, soft Extremity: Non Tender, No Calf Tenderness Neurologic/Psychiatric: Alert, Oriented x3 Results Lab Laboratory Tests 11/09/16 16:36: Glucometer 180H 11/09/16 21:45: Glucometer 137H 11/10/16 04:03: White Blood Count 4.8, Red Blood Count 3.89L, Hemoglobin 11.5, Hematocrit 36, Mean Corpuscular Volume 92, Mean Corpuscular Hemoglobin 30, Mean Corpuscular Hemoglobin Concent 32, Red Cell Distribution Width 15.4H, Platelet Count 197, Mean Platelet Volume 9.1, Neutrophils (%) (Auto) 68, Lymphocytes (%) (Auto) 17, Monocytes (%) (Auto) 10, Eosinophils (%) (Auto) 5, Basophils (%) (Auto) 0, Neutrophils # (Auto) 3.3, Lymphocytes # (Auto) 0.8L, Monocytes # (Auto) 0.5, Eosinophils # (Auto) 0.2, Basophils # (Auto) 0.0, Sodium Level 143, Potassium Level 3.9, Chloride Level 115H, Carbon Dioxide Level 19L, Anion Gap 9, Blood Urea Nitrogen 11, Creatinine 0.80, Estimat Glomerular Filtration Rate > 60, BUN/ Creatinine Ratio 14, Glucose Level 115H, Calcium Level 7.9L, Phosphorus Level 2.2L, Magnesium Level 1.8, Total Bilirubin 0.3, Aspartate Amino Transf (AST/SGOT ) 15, Alanine Aminotransferase (ALT/SGPT) 12, Alkaline Phosphatase 42, Total Protein 5.5L, Albumin 3.0L 11/10/16 05:51: Glucometer 99 11/10/16 07:47: Vancomycin Level Trough 10.6 11/10/16 10:57: Glucometer 164H Microbiology 11/08/16 Blood Culture - Preliminary, Resulted No growth Assessment/Plan Assessment/Plan Assess & Plan/Chief Complaint 1. Sepsis--blood cx negative, clinically improved so will decrease IVF rate again 2. Bibasilar Pneumonia--continue abx and repeat CXR in AM 3. Hypertension--resume cozaar and metoprolol since no longer hypotensive 4. Weakness--start PT tomorrow, up to chair Clinical Quality Measures DVT/VTE Risk/Contraindication: Risk Factor Score Per Nursin RFS Level Per Nursing on Admit: 4+=Very High Pneumonia: Pseudomonal Risk: No known risk HCAP with risk for mulit-drug: Hospitalized>2d (pst 90d) ORVILLE BARRIOS DO Nov 10, 2016 12:42
[2016-11-10] MEDS: NS IV 1000 ML 1,000 ML IV SCH (12:45)
[2016-11-10 15:59] VITALS: BP 148/60
[2016-11-10] MEDS ORDERED: PATIENT MAY USE OWN MEDS, ALL MC SCH (16:30)
[2016-11-10] MEDS: ESCITALOPRAM 10MG TABLETS PO SCH (16:59)
[2016-11-10] MEDS: cefTRIAXone INJECTION 1,000 MG in NS (IVPB) 50 ML IV SCH (17:00)
[2016-11-10] MEDS: AZITHROMYCIN 500 MG/NS 250 ML IVPB IV SCH ×2 (17:45)
[2016-11-10 19:20] VITALS: BP 164/86
[2016-11-10] MEDS: meTOproloL SUCCINATE 50 MG (TOPROL XL) TAB PO SCH (20:00)
[2016-11-11] VITALS (7 sets, daily range): BP systolic 142–167; BP diastolic 67–89
[2016-11-11] MEDS: inSUlin (REGULAR) HUMAN 1 UNIT/0.01 ML (CHARGE PER UNIT) SC SCH ×4 (05:09→21:22)
[2016-11-11 05:54] LABS: BASOPHILS % (AUTO) 0 % (0-10); EOSINOPHILS # (AUTO) 0.3 10^3/uL (0.0-0.3); EOSINOPHILS % (AUTO) 5 % (0-10); LYMPHOCYTES % (AUTO) 20 % (12-44); MEAN CORPUSCULAR HEMOGLOBIN 29 PG (25-34); MEAN CORPUSCULAR HGB CONC 31 G/DL (32-36); MEAN CORPUSCULAR VOLUME 92 FL (80-99); MEAN PLATELET VOLUME 9.1 FL (7.4-10.4); MONOCYTES # (AUTO) 0.9 X 10^3 (0.0-1.0); MONOCYTES % (AUTO) 17 % (0-12); NEUTROPHILS # (AUTO) 2.9 X 10^3 (1.8-7.8); NEUTROPHILS % (AUTO) 58 % (42-75); PLATELET COUNT 183 10^3/uL (130-400); RED BLOOD COUNT 3.81 10^6/uL (4.35-5.85); RED CELL DISTRIBUTION WIDTH 15.4 % (10.0-14.5); WHITE BLOOD COUNT 5.1 10^3/uL (4.3-11.0)
[2016-11-11 06:10] LABS: ANION GAP 10 MMOL/L (5-14); BLOOD UREA NITROGEN 8 MG/DL (7-18); BUN/CREATININE RATIO 11; CALCIUM 8.4 MG/DL (8.5-10.1); CARBON DIOXIDE 21 MMOL/L (21-32); CHLORIDE 113 MMOL/L (98-107); CREATININE SERUM 0.74 MG/DL (0.60-1.30); GFR ESTIMATED > 60; GLUCOSE 121 MG/DL (70-105); MAGNESIUM 1.8 MG/DL (1.8-2.4); PHOSPHORUS 1.8 MG/DL (2.3-4.7); POTASSIUM 3.9 MMOL/L (3.6-5.0); SODIUM 144 MMOL/L (135-145)
--- NOTE | 2016-11-11 07:49 | Diagnostic Imaging Report ---
INDICATION: Followup pneumonia. COMPARISON: 11/09/2016 FINDINGS: Frontal and lateral radiographic views of the chest were obtained. There is improved aeration bilaterally. Interstitial opacities have essentially resolved. There is persistent blunting of one of the posterior costophrenic angles. Right versus left is indeterminate. Lateral costophrenic angles are well preserved on the frontal view. There is no pneumothorax. Cardiac silhouette is within normal limits. IMPRESSION: 1. Significant improved aeration, bilaterally. 2. Persistent rounded blunting of posterior costophrenic angle in the lateral view. Findings may be on the basis of residual pleural effusion. Pleural-based mass type lesion cannot be excluded. Continued followup is recommended. Dictated by: Dictated on workstation # [id number]
--- NOTE | 2016-11-11 08:03 | Progress Note (SOAP) ---
Subjective Date Seen by Provider: Nov 11, 2016 Time Seen by Provider: 08:05 Subjective/Events-last exam PT IS AN 86 Y/O FEMALE WHO IS KNOWN TO ME FROM CLINIC. SHE PRESENTED TO THE HOSPITAL ON 11/09/16 WITH ABDOMINAL DISCOMFORT, WEAKNESS, FOUND TO BE SEPTIC AND HAVE PNEUMONIA. SHE WAS ADMITTED TO THE ICU ON SEPSIS PROTOCOL AND TRANSFERRED DOWN TO 4TH FLOOR YESTERDAY. Review of Systems General: No Chills, Fatigue Pulmonary: Dyspnea, Cough Cardiovascular: No: Chest Pain Gastrointestinal: No: Nausea Genitourinary: No Dysuria, Frequency Neurological: Weakness Objective Exam Vital Signs Date Time Temp Pulse Resp B/P (MAP) Pulse Ox O2 Delivery O2 Flow Rate FiO2 11/11/16 07:00 67 11/11/16 04:00 98.2 76 18 142/72 97 Nasal Cannula 1.50 11/11/16 00:05 98.4 83 20 167/67 93 Nasal Cannula 1.50 11/10/16 20:00 9 Nasal Cannula 2.00 11/10/16 19:51 93 Nasal Cannula 2.00 11/10/16 19:33 85 11/10/16 19:20 98.8 89 20 164/86 95 Nasal Cannula 1.50 11/10/16 15:59 99.3 96 20 148/60 96 Nasal Cannula 1.50 11/10/16 14:32 94 Nasal Cannula 2.00 11/10/16 12:47 73 11/10/16 11:57 98.4 74 20 138/77 97 Nasal Cannula 2.00 11/10/16 08:38 96.0 85 18 134/63 93 Nasal Cannula 1.50 11/10/16 08:07 92 11/10/16 08:07 97 Nasal Cannula 2.00 I & O 11/11/16 07:00 Intake Total 3682.5 ml Balance 3682.5 ml Capillary Refill : Less Than 3 Seconds General Appearance: No Apparent Distress, WD/WN HEENT: PERRL/EOMI, Pharynx Normal Neck: Full Range of Motion, Supple Respiratory: Crackles, Decreased Breath Sounds Cardiovascular: Regular Rate, Rhythm Gastrointestinal: normal bowel sounds, non tender, soft, no organomegaly, no pulsatile mass Extremity: Normal Capillary Refill, No Pedal Edema Neurologic/Psychiatric: Alert, Oriented x3, No Motor/Sensory Deficits, Normal Mood/Affect Skin: Warm/Dry Lymphatic: No Adenopathy Results Lab Laboratory Tests 11/10/16 10:57: Glucometer 164H 11/10/16 15:57: Glucometer 156H 11/10/16 20:58: Glucometer 163H 11/11/16 05:01: Glucometer 119H 11/11/16 05:15: White Blood Count 5.1, Red Blood Count 3.81L, Hemoglobin 11.0L, Hematocrit 35, Mean Corpuscular Volume 92, Mean Corpuscular Hemoglobin 29, Mean Corpuscular Hemoglobin Concent 31L, Red Cell Distribution Width 15.4H, Platelet Count 183, Mean Platelet Volume 9.1, Neutrophils (%) (Auto) 58, Lymphocytes (%) (Auto) 20, Monocytes (%) (Auto) 17H, Eosinophils (%) (Auto) 5, Basophils (%) (Auto) 0, Neutrophils # (Auto) 2.9, Lymphocytes # (Auto) 1.0, Monocytes # (Auto) 0.9, Eosinophils # (Auto) 0.3, Basophils # (Auto) 0.0, Sodium Level 144, Potassium Level 3.9, Chloride Level 113H, Carbon Dioxide Level 21, Anion Gap 10, Blood Urea Nitrogen 8, Creatinine 0.74, Estimat Glomerular Filtration Rate > 60, BUN/ Creatinine Ratio 11, Glucose Level 121H, Calcium Level 8.4L, Phosphorus Level 1.8L, Magnesium Level 1.8 Microbiology 11/08/16 Blood Culture - Preliminary, Resulted No growth Assessment/Plan Assessment/Plan Assess & Plan/Chief Complaint SEPSIS PNEUMONIA HYPERTENSION DIABETES MELLITUS WEAKNESS GERD SEPSIS-- BLOOD CULTURES NEGATIVE PNEUMONIA - WITH PLEURAL FULLNESS - RECOMMENDED CT SCAN THIS MORNING - WILL WAIT ON RESULTS. CONTINUE WITH IV ANTIBIOTICS. HYPERTENSION - CONTINUE HOME MEDICATIONS AT THIS TIME, MONITOR PRESSURE. WEAKNESS - PT TO HAVE PHYSICAL THERAPY. DM - RESUME HOME MEDICATIONS, MONITOR FSBS GERD - PPI Clinical Quality Measures DVT/VTE Risk/Contraindication: Risk Factor Score Per Nursin RFS Level Per Nursing on Admit: 4+=Very High Pneumonia: Pseudomonal Risk: No known risk HCAP with risk for mulit-drug: Hospitalized>2d (pst 90d) NAVARRO OCONNELL MD Nov 11, 2016 08:03
[2016-11-11] MEDS: VANCOMYCIN 1250 MG/NS 250 ML IVPB IV SCH ×2 (08:21)
[2016-11-11] MEDS: LOSARTAN 50 MG (COZAAR) TAB PO SCH (08:21)
[2016-11-11] MEDS ORDERED: IPRA3AMP IH (09:38)
[2016-11-11] MEDS: ENOXAPARIN 40 MG/0.4 ML (LOVENOX) SYR SC SCH (10:04)
[2016-11-11] MEDS: FAMOTIDINE 20 MG (PEPCID) TABLET PO SCH (10:04)
[2016-11-11] MEDS: RT-ALBUTEROL/IPRATROPIUM 3 ML (DUONEB) VIAL INH SCH ×2 (10:09→14:16)
[2016-11-11] MEDS: RT-ADVAIR HFA 115/21 MCG PER PUFF IH SCH ×2 (10:11→20:06)
[2016-11-11] MEDS: UMECLIDINIUM BROMIDE (INCRUSE ELLIPTA) 7'S IH SCH (10:11)
--- NOTE | 2016-11-11 11:26 | Physical Therapy Daily Note ---
PT Daily Note-Current Subjective Patient in bed pre tx, agrees to PT, states she is feeling a little better today. No complaints of pain. Appearance Patient BTB post tx, has nurse call, phone, tray, all needs met. Mental Status Patient Orientation: Normal For Age Attachments: Oxygen, IV 2L of O2 nasal canula Transfers Functional [place] Measure 0=Not Assessed/NA 4=Minimal Assistance 1=Total Assistance 5=Supervision or Setup 2=Maximal Assistance 6=Modified [place] 3=Moderate Assistance 7=Complete IndependenceIRFPAI Quality Coding Scale 6 Independent with activity with or without an assistive device 5 Patient requires set up or clean up by helper. Patient completes activity by themselves 4 Supervision or touching assist (CGA). [place] provide cues , steadying assist 3 The helper provides less than half the effort to complete the activity 2 The helper provides more than half the effort to complete the activity 1 Dependent. The helper does all the effort to complete an activity 7 Patient refused to complete or attempt activity 9 The patient did not perform the activity before the current illness or injury 88 Not attempted due to Medical conditions or safety concerns Transfers (B, C, W/C) (FIM): 4 Scootin Rollin Supine to/from Sit: 4 Sit to/from Stand: 4 min assist for supine to sit, CGA for sit to stand, no dizziness or lightheadedness Gait Training Gait (FIM): 4 Distance: 150' Gait Level of Assist: 4 Gait Persons Needed: 1 Gait Assistive Device: FWW CGA, slow, purse lip breathing, no LOB Treatments bed mobility, transfers, ambulation, O2 was 92% after ambulation Assessment Current Status: Fair Progress improved ambulation, no dizziness PT Short Term Goals Short Term Goals Time Frame: Nov 23, 2016 Transfers (B,C,W/C) (FIM): 6 Gait (FIM): 6 Distance (FIM): 3=150 ft Gait Level of Assist: 6 Gait Assistive Device: FWW PT Plan Problem List Problem List: Activity Tolerance, Functional Strength, Safety, Balance, Gait, Transfer, Bed Mobility Treatment/Plan Treatment Plan: Continue Plan of Care Treatment Plan: Bed Mobility, Functional Activity Gómez, Functional Strength, Gait, Therapeutic Exercise, Transfers Treatment Duration: Nov 23, 2016 Visits Per Week: 5 Safety Risks/Education Patient Education: Gait Training, Transfer Techniques, Correct Positioning, Safety Issues Teaching Recipient: Patient Teaching Methods: Demonstration, Discussion Response to Teaching: Reinforcement Needed Time/GCodes Time In: 1100 Time Out: 1115 Total Billed Treatment Time: 15 Total Billed Treatment 1 visit GT 15' ILDEFONSO GARCIA PT Nov 11, 2016 11:26
[2016-11-11] MEDS: NS IV 1000 ML 1,000 ML IV SCH (13:11)
[2016-11-11] MEDS ORDERED: NS 100 ML (IVPB) BAG IV ONE (16:15)
[2016-11-11] MEDS ORDERED: IOHEXOL 350 MG/ML 100 ML (OMNIPAQUE 350) VIAL IV ONE (16:15)
[2016-11-11] MEDS: ESCITALOPRAM 10MG TABLETS PO SCH (16:41)
--- NOTE | 2016-11-11 16:49 | Diagnostic Imaging Report ---
PROCEDURE: CT chest with contrast only. TECHNIQUE: Multiple contiguous axial images were obtained through the chest after administration of intravenous contrast. INDICATION: Recurrent pneumonia. FINDINGS: There are bilateral pleural effusions that adobe layer to a depth of 17 mm on the right and 19 mm on the left. There is an irregular shaped nodular density in the right upper lobe posterior segment just above the fissure that measures 7 mm in diameter. This is new compared to 09/12/2016. There is a 15 mm diameter area of nodular consolidation in the lateral basilar segment of the right lower lobe on page 37. This is also new since 09/12/2016. There is a patchy area of consolidation at the left lung base which is improved from the prior study. There is an 11 mm ill-defined nodular opacity in the lingular segment of the left upper lobe that is new since the prior study. There is no hilar or mediastinal lymphadenopathy. IMPRESSION: Compared to study dated 09/12/2016, the pleural effusions have increased slightly. There has been partial clearing of the left basilar infiltrate. There are three new opacities in the right lung that were not present previously. These could be inflammatory but short interval followup recommended due to possibility of developing neoplasm. Dictated by: Dictated on workstation # [id number]
[2016-11-11] MEDS: cefTRIAXone INJECTION 1,000 MG in NS (IVPB) 50 ML IV SCH (17:22)
[2016-11-11] MEDS ORDERED: RT-ALBUTEROL/IPRATROPIUM 3 ML (DUONEB) VIAL INH PRN (18:00)
[2016-11-11] MEDS: AZITHROMYCIN 500 MG/NS 250 ML IVPB IV SCH ×2 (18:31)
[2016-11-11] MEDS ORDERED: SENNA W/DOCUSATE (SENOKOT S) TABLET PO NR (18:45)
[2016-11-11] MEDS ORDERED: FAMOTIDINE 20 MG (PEPCID) TABLET PO SCH (21:00)
[2016-11-11] MEDS: meTOproloL SUCCINATE 50 MG (TOPROL XL) TAB PO SCH (21:35)
[2016-11-11] MEDS: POLYETHYLENE GLYCOL 17 GM (MIRALAX) PACK PO SCH (21:35)
[2016-11-12 03:00] VITALS: BP 147/65
[2016-11-12] MEDS: inSUlin (REGULAR) HUMAN 1 UNIT/0.01 ML (CHARGE PER UNIT) SC SCH ×4 (05:10→20:32)
[2016-11-12 05:18] LABS: MAGNESIUM 1.6 MG/DL (1.8-2.4); PHOSPHORUS 2.4 MG/DL (2.3-4.7)
[2016-11-12] MEDS: RT-ADVAIR HFA 115/21 MCG PER PUFF IH SCH ×2 (07:01→20:43)
[2016-11-12] MEDS: UMECLIDINIUM BROMIDE (INCRUSE ELLIPTA) 7'S IH SCH (07:01)
[2016-11-12 07:48] VITALS: BP 133/77
--- NOTE | 2016-11-12 08:53 | Progress Note (SOAP) ---
Subjective Date Seen by Provider: Nov 12, 2016 Time Seen by Provider: 08:10 Subjective/Events-last exam PT REPORTS THAT SHE IS FEELING UNCHANGED FROM PREVIOUS DAY. SHE STATES THAT SHE DOES FEEL BETTER OVERALL, HOWEVER, SHE IS NOT BETTER THAN YESTERDAY. SHE HAS PERSISTENT COUGH. HER IS WONDERING IF SHE WILL NEED OXYGEN CONTINUOUSLY AND IF SO, CAN SHE GET ANOTHER OXYGEN CONCENTRATOR FOR THE LIVING ROOM. Review of Systems General: Fatigue, Malaise HEENT: No Head Aches, No Visual Changes Pulmonary: Dyspnea, Cough Cardiovascular: No: Chest Pain Gastrointestinal: Constipation, No: Abdominal Pain, Nausea Genitourinary: No Dysuria Neurological: Weakness, No: Confusion Objective Exam Vital Signs Date Time Temp Pulse Resp B/P (MAP) Pulse Ox O2 Delivery O2 Flow Rate FiO2 11/12/16 08:00 Nasal Cannula 1.00 11/12/16 07:48 97.0 54 20 133/77 92 Nasal Cannula 1.50 11/12/16 07:01 95 Nasal Cannula 1.00 11/12/16 07:00 66 11/12/16 05:03 98.0 11/12/16 03:00 96.2 65 16 147/65 96 Nasal Cannula 1.50 11/12/16 01:00 63 11/11/16 23:35 96.0 64 18 149/69 97 Nasal Cannula 1.50 11/11/16 20:20 Nasal Cannula 1.00 11/11/16 20:06 95 Nasal Cannula 2.00 11/11/16 19:05 98.4 74 18 149/75 95 Nasal Cannula 1.50 11/11/16 19:00 80 11/11/16 16:27 98.4 81 18 151/89 95 Nasal Cannula 1.50 11/11/16 14:16 94 Nasal Cannula 2.00 11/11/16 14:16 94 11/11/16 13:00 62 11/11/16 12:02 96.6 65 20 146/68 95 Nasal Cannula 1.50 11/11/16 10:09 96 Nasal Cannula 2.00 I & O 11/12/16 07:00 Intake Total 3162.5 ml Output Total 600 ml Balance 2562.5 ml Capillary Refill : Less Than 3 Seconds General Appearance: No Apparent Distress, WD/WN HEENT: PERRL/EOMI, Pharynx Normal Neck: Full Range of Motion, Supple Respiratory: Chest Non Tender, Crackles (IN BASES), Decreased Breath Sounds Cardiovascular: Regular Rate, Rhythm, No Edema Gastrointestinal: normal bowel sounds, non tender, soft, no organomegaly, no pulsatile mass Extremity: Normal Capillary Refill, No Calf Tenderness, No Pedal Edema Neurologic/Psychiatric: Alert, Oriented x3, No Motor/Sensory Deficits, Normal 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, 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 Norm as Tested Skin: Normal Color, Warm/Dry Lymphatic: No Adenopathy Results Lab Laboratory Tests 11/11/16 11:50: Glucometer 122H 11/11/16 16:26: Glucometer 120H 11/11/16 21:03: Glucometer 132H 11/12/16 04:08: Phosphorus Level 2.4, Magnesium Level 1.6L 11/12/16 05:07: Glucometer 113H Microbiology 11/08/16 Blood Culture - Preliminary, Resulted No growth Assessment/Plan Assessment/Plan Assess & Plan/Chief Complaint SEPSIS PNEUMONIA HYPERTENSION DIABETES MELLITUS WEAKNESS GERD CONSTIPATION COPD SEPSIS-- BLOOD CULTURES NEGATIVE PNEUMONIA - WITH PLEURAL FULLNESS -THE REPEAT CT SCAN SHOWED AREAS OF CONSOLIDATION - CONCERN FOR INFLAMMATION/INFECTION IN THE TWO AREAS ON RIGHT LUNG VERSUS NEOPLASM. I HAVE DISCUSSED THIS WITH PALOMA AND HER , EBEN. THEY UNDERSTAND THE REPORT AND WOULD LIKE TO PROCEED WITH PLANS FOR REFERRAL TO PULMONOLOGY. PT IS TO CONTINUE WITH IV ANTIBIOTICS. HYPERTENSION - CONTINUE HOME MEDICATIONS AT THIS TIME, MONITOR PRESSURE. WEAKNESS - PT TO HAVE PHYSICAL THERAPY - INCREASE TO TWICE DAILY THERAPY DM - RESUME HOME MEDICATIONS, MONITOR FSBS GERD - PPI CONSTIPATION - GIVE MIRALAX, SENNA AND DULCOLAX SUPPOSITORY Clinical Quality Measures DVT/VTE Risk/Contraindication: Risk Factor Score Per Nursin RFS Level Per Nursing on Admit: 4+=Very High Pneumonia: Pseudomonal Risk: No known risk HCAP with risk for mulit-drug: Hospitalized>2d (pst 90d) NAVARRO OCONNELL MD Nov 12, 2016 08:53
[2016-11-12] MEDS ORDERED: BISACODYL 10 MG SUPP (DULCOLAX) PR NR (09:00)
[2016-11-12] MEDS ORDERED: CATHETER FLUSH 10 ML SYR IV PRN (09:30)
[2016-11-12] MEDS: ENOXAPARIN 40 MG/0.4 ML (LOVENOX) SYR SC SCH (09:31)
[2016-11-12] MEDS: FAMOTIDINE 20 MG (PEPCID) TABLET PO SCH (09:31)
[2016-11-12] MEDS: LOSARTAN 50 MG (COZAAR) TAB PO SCH (09:31)
[2016-11-12] MEDS: SENNA W/DOCUSATE (SENOKOT S) TABLET PO SCH ×2 (09:39→21:10)
--- NOTE | 2016-11-12 11:34 | Physical Therapy Daily Note ---
PT Daily Note-Current Subjective Patient is in bed and agrees to PT. Patient c/o constipation. Pain Numeric Pain Scale: 0-No Pain Location: No Pain Reported Mental Status Patient Orientation: Normal For Age Attachments: Oxygen (2L) Transfers Functional [place] Measure 0=Not Assessed/NA 4=Minimal Assistance 1=Total Assistance 5=Supervision or Setup 2=Maximal Assistance 6=Modified [place] 3=Moderate Assistance 7=Complete IndependenceIRFPAI Quality Coding Scale 6 Independent with activity with or without an assistive device 5 Patient requires set up or clean up by helper. Patient completes activity by themselves 4 Supervision or touching assist (CGA). [place] provide cues , steadying assist 3 The helper provides less than half the effort to complete the activity 2 The helper provides more than half the effort to complete the activity 1 Dependent. The helper does all the effort to complete an activity 7 Patient refused to complete or attempt activity 9 The patient did not perform the activity before the current illness or injury 88 Not attempted due to Medical conditions or safety concerns Transfers (B, C, W/C) (FIM): 6 Scootin Rollin Supine to/from Sit: 6 Sit to/from Stand: 6 Gait Training Gait (FIM): 6 Distance (FIM): 3=150 ft Distance: 300' x 4 Gait Level of Assist: 6 Gait Assistive Device: FWW safe and functional with FWW Assessment Functional mobility with ambulation to improve patient cardiopulmonary function. Per physician, PT to increase frequency to BID to increase pulmonary function. Patient is up ad stan in room and will dismiss to home this week. PT Short Term Goals Short Term Goals Time Frame: Nov 23, 2016 Transfers (B,C,W/C) (FIM): 6 Gait (FIM): 6 Distance (FIM): 3=150 ft Gait Level of Assist: 6 Gait Assistive Device: FWW PT Plan Treatment/Plan Treatment Plan: Continue Plan of Care Treatment Plan: Bed Mobility, Functional Activity Gómez, Functional Strength, Gait, Therapeutic Exercise, Transfers Treatment Duration: Nov 23, 2016 Visits Per Week: 5 Time/GCodes Time In: 1045 Time Out: 1110 Total Billed Treatment Time: 25 Total Billed Treatment 1 visit FA x 2 25 min MARYANA JO PT Nov 12, 2016 11:34
[2016-11-12 11:50] VITALS: BP 138/85
--- NOTE | 2016-11-12 13:01 | Physical Therapy Daily Note ---
PT Daily Note-Current Subjective Patient agrees to PT. Pain Numeric Pain Scale: 0-No Pain Location: No Pain Reported Mental Status Patient Orientation: Normal For Age Transfers Functional [place] Measure 0=Not Assessed/NA 4=Minimal Assistance 1=Total Assistance 5=Supervision or Setup 2=Maximal Assistance 6=Modified [place] 3=Moderate Assistance 7=Complete IndependenceIRFPAI Quality Coding Scale 6 Independent with activity with or without an assistive device 5 Patient requires set up or clean up by helper. Patient completes activity by themselves 4 Supervision or touching assist (CGA). [place] provide cues , steadying assist 3 The helper provides less than half the effort to complete the activity 2 The helper provides more than half the effort to complete the activity 1 Dependent. The helper does all the effort to complete an activity 7 Patient refused to complete or attempt activity 9 The patient did not perform the activity before the current illness or injury 88 Not attempted due to Medical conditions or safety concerns Transfers (B, C, W/C) (FIM): 6 Scootin Rollin Supine to/from Sit: 6 Sit to/from Stand: 6 Gait Training Gait (FIM): 6 Distance (FIM): 3=150 ft Distance: 400' x 2 Gait Level of Assist: 6 Gait Assistive Device: FWW safe and functional with FWW SAO2 checked with PT removing O2 2L NC 5 min prior to treatment. SAO2 at beginning to ambulate 92% and decreased to 88% at 400'; O2 2L NC placed on patient and SAO2 increased to 96% after a 20 seconds. RT notified of finding. Treatments SAO2 checked with PT removing O2 2L NC 5 min prior to treatment. SAO2 at beginning to ambulate 92% and decreased to 88% at 400'; O2 2L NC placed on patient and SAO2 increased to 96% after a 20 seconds. RT notified of finding. Assessment SAO2 check with ambulation FWW on RA. Patient qualifies for home O2 per RT. PT Short Term Goals Short Term Goals Time Frame: Nov 23, 2016 Transfers (B,C,W/C) (FIM): 6 Gait (FIM): 6 Distance (FIM): 3=150 ft Gait Level of Assist: 6 Gait Assistive Device: FWW PT Plan Treatment/Plan Treatment Plan: Continue Plan of Care Treatment Plan: Bed Mobility, Functional Activity Gómez, Functional Strength, Gait, Therapeutic Exercise, Transfers Treatment Duration: Nov 23, 2016 Visits Per Week: 5 Time/GCodes Time In: 1230 Time Out: 1255 Total Billed Treatment Time: 25 Total Billed Treatment 1 visit FA x 2 25 min MARYANA JO PT Nov 12, 2016 13:01
[2016-11-12] MEDS: CATHETER FLUSH 10 ML SYR IV SCH ×2 (14:00→21:10)
[2016-11-12 15:23] VITALS: BP 141/69
[2016-11-12] MEDS: cefTRIAXone INJECTION 1,000 MG in NS (IVPB) 50 ML IV SCH (17:12)
[2016-11-12] MEDS: ESCITALOPRAM 10MG TABLETS PO SCH (17:13)
[2016-11-12] MEDS: AZITHROMYCIN 250 MG TAB (ZITHROMAX) PO SCH (17:13)
[2016-11-12 20:26] VITALS: BP 134/82
[2016-11-12] MEDS: meTOproloL SUCCINATE 50 MG (TOPROL XL) TAB PO SCH (21:10)
[2016-11-12] MEDS: POLYETHYLENE GLYCOL 17 GM (MIRALAX) PACK PO SCH (21:11)
[2016-11-12 23:25] VITALS: BP 158/68
[2016-11-13 03:05] VITALS: BP 152/68
[2016-11-13 05:27] LABS: MAGNESIUM 1.7 MG/DL (1.8-2.4)
[2016-11-13] MEDS: inSUlin (REGULAR) HUMAN 1 UNIT/0.01 ML (CHARGE PER UNIT) SC SCH ×2 (05:48→11:11)
[2016-11-13] MEDS: CATHETER FLUSH 10 ML SYR IV SCH (06:50)
[2016-11-13 07:53] VITALS: BP 165/81
[2016-11-13] MEDS: RT-ADVAIR HFA 115/21 MCG PER PUFF IH SCH (08:01)
[2016-11-13] MEDS: UMECLIDINIUM BROMIDE (INCRUSE ELLIPTA) 7'S IH SCH (08:01)
--- NOTE | 2016-11-13 09:16 | Discharge Summary ---
Diagnosis/Chief Complaint Date of Admission Nov 08, 2016 at 18:35 Date of Discharge Discharge Date: Nov 13, 2016 Discharge Time: 14:00 Admission Diagnosis Admission Diagnosis 1. Sepsis--on sepsis protocol with improved lactic acid and blood pressure, continue triple therapy abx until culture results obtained, transfer to floor, add 2. Bibasilar Pneumonia--continue triple abx coverage pending cultures and monitor CXR 3. Weakness--start PT 4. Hypertension--with current hypotension will hold home BP meds and monitor BP Discharge Diagnosis EPSIS PNEUMONIA HYPERTENSION DIABETES MELLITUS WEAKNESS GERD CONSTIPATION COPD LUNG NODULES ON RIGHT HYPOXEMIA COPD Reason Hospital Visit This is an 86 year old female with a history of admission 2months ago for pneumonia who presented to the emergency room with nausea, weakness, fatigue and abdominal pain. She was hypotensive with blood pressures 70s/40s in the emergency room and appeared septic. Her lactic acid was elevated at 2.5 with an elevated WBC count of 11.2. She had fluid resuscitation of 3L NS in ER with ongoing hypotension. She was found to have bilateral bibasilar pulmonary infiltrates on CXR. She will be admitted to the ICU for sepsis and placed on sepsis protocol with triple therapy antibiotics. Discharge Summary Discharge Physical Examination Allergies: Coded Allergies: amoxicillin (Verified Allergy, Intermediate, RASH, ITCHING, 02/28/16) ciprofloxacin (Verified Allergy, Intermediate, RASH, ITCHING, 02/28/16) Sulfa (Sulfonamide Antibiotics) (Verified Allergy, Unknown, 06/22/15) linezolid (Verified Allergy, Unknown, 11/10/16) minocycline (Verified Allergy, Unknown, 11/10/16) levofloxacin (Unverified Adverse Reaction, Mild, NAUSEA, 08/06/10) Vitals & I&Os Vital Signs Date Time Temp Pulse Resp B/P (MAP) Pulse Ox O2 Delivery O2 Flow Rate FiO2 11/13/16 08:04 92 Nasal Cannula 2.00 11/13/16 07:53 98.6 61 18 165/81 General Appearance: Alert, Oriented X3, Cooperative HEENT: Atraumatic, PERRLA Respiratory: Clear to Auscultation Cardiovascular: Regular Rate Abdominal: Normal Bowel Sounds, Soft Extremities: No Clubbing, No Cyanosis Skin: No Rashes, No Breakdown Neuro: Normal Speech, Cranial Nerves 3-12 NL Psych/Mental Status: Mental Status NL, Mood NL Hospital Course EPSIS PNEUMONIA HYPERTENSION DIABETES MELLITUS WEAKNESS GERD CONSTIPATION COPD SEPSIS-- BLOOD CULTURES NEGATIVE PNEUMONIA - WITH PLEURAL FULLNESS -THE REPEAT CT SCAN SHOWED AREAS OF CONSOLIDATION - CONCERN FOR INFLAMMATION/INFECTION IN THE TWO AREAS ON RIGHT LUNG VERSUS NEOPLASM. I HAVE DISCUSSED THIS WITH PALOMA AND HER , EBEN. THEY UNDERSTAND THE REPORT AND WOULD LIKE TO PROCEED WITH PLANS FOR REFERRAL TO PULMONOLOGY. PT IS TO CONTINUE WITH IV ANTIBIOTICS TODAY AND WILL TRANSITION TO ORAL ANTIBIOTICS FOR PT TO START TOMORROW MORNING AT HOME. HYPERTENSION - CONTINUE HOME MEDICATIONS AT THIS TIME, MONITOR PRESSURE. WEAKNESS - PT TO HAVE PHYSICAL THERAPY AT HOME WITH HOME HEALTH DM - RESUME HOME MEDICATIONS, MONITOR FSBS GERD - PPI CONSTIPATION - GAVE MIRALAX, SENNA AND DULCOLAX SUPPOSITORY, PT FINALLY HAD BOWEL MOVEMENT YESTERDAY. PT TO HAVE HOME HEALTH PHYSICAL THERAPY, NURSING, AND PT TO HAVE OXYGEN CONTINUOUSLY DUE TO HYPOXEMIA - DROPPING OF OXYGEN WITH AMBULATION. SEE RT NOTES FOR FULL DETAILS. Pending Labs Laboratory Tests 11/13/16 04:00: Phosphorus Level 3.0, Magnesium Level 1.7 11/13/16 05:19: Glucometer 112 Discharge Condition at discharge IMPROVING Instructions to patient/family Please see electonic discharge instructions given to patient. Discharge Medications Reviewed and agree with Discharge Medication list on patient's Discharge Instruction sheet Clinical Quality Measures DVT/VTE Risk/Contraindication: Risk Factor Score Per Nursin RFS Level Per Nursing on Admit: 4+=Very High Pneumonia: Pseudomonal Risk: No known risk HCAP with risk for mulit-drug: Hospitalized>2d (pst 90d) NAVARRO OCONNELL MD Nov 13, 2016 09:16
[2016-11-13] MEDS ORDERED: AZIT250T5 PO (09:23)
[2016-11-13] MEDS ORDERED: LACT1CAP62 PO (09:23)
[2016-11-13] MEDS ORDERED: CEFD300C3 PO (09:23)
[2016-11-13] MEDS ORDERED: SENN-20 PO (09:23)
[2016-11-13] MEDS ORDERED: UMEC62.5 IH (09:23)
--- NOTE | 2016-11-13 09:29 | D/C HH Face to Face Order ---
Discharge Inst-to Home Health Patient Instructions Patient Instructions/FollowUp: APPT WITH KOURTNEY 11/20/16 @3PM VIA [facility], [place] DISCHARGE ORDERS Allergies: Coded Allergies: amoxicillin (Verified Allergy, Intermediate, RASH, ITCHING, 02/28/16) ciprofloxacin (Verified Allergy, Intermediate, RASH, ITCHING, 02/28/16) Sulfa (Sulfonamide Antibiotics) (Verified Allergy, Unknown, 06/22/15) linezolid (Verified Allergy, Unknown, 11/10/16) minocycline (Verified Allergy, Unknown, 11/10/16) levofloxacin (Unverified Adverse Reaction, Mild, NAUSEA, 08/06/10) Height (Feet): 5 Height (Inches): 2.00 Weight (Pounds): 187 Weight (Ounces): 0.0 Weight (Kilograms): 85.2 Home Health Need/Face to Face Reason Pt Homebound CANNOT DRIVE, WEAKNESS, NEEDS THERAPY I Have Seen Pt [id number]-[id number]: Yes Date of Face to Face: Nov 13, 2016 Discharged To: Home Diagnosis/Conditions HH Order: PNEUMONIA, SEPSIS, WEAKNESS, HYPERTENSION HOMEBOUND DUE TO WEAKNESS, CANNOT DRIVE, Consult/Follow Up/New Order *I certify that based on my findings, the following services are medically necessary Home Health Services: Services: Nursing Services, Senior Hardware Design Engineer-Evaluate & Treat, Physical Therapy-Evaluate & Treat My clinical findings support the need for the above services; see Diagnosis. [facility] Orders EVAL AND TREAT, HOME SAFETY EVALUATION CHECK BLOOD PRESSURE, HEART RATE, BLOOD GLUCOSE REPORT TO OFFICE ON FRIDAY Home O2 Qualification: Y Home O2 Length of Need: LIFETIME Home O2: 2 LITERS CONTINUOUS WITH HUMIDIFICATION FROM [facility] PT Dicharge Diet: ADA Diet Daily Activity as Tolerated: Yes Discharge Medications: New, Converted, or Re-newed RX: Transmited to Pharmacy I certify that this patient is under my care and that I, a nurse practitioner or a physician; a medical practice assistant working with me, had a face to face encounter that - meets the physician face to face encounter requirements with this patient as dated. Medication List: Active Scripts Active Cefdinir 300 Mg Capsule 300 Mg PO BID 7 Days Probiotic (Lactobacillus Acidophilus) 1 Each Capsule 1 Each PO TID 30 Days Senna-Time S Tablet (Sennosides/Docusate Sodium) 1 Each Tablet 1 Ea PO BID 30 Days HOLD IF LOOSE STOOLS Incruse Ellipta (Umeclidinium [place]) 62.5 Mcg Blst.w.dev 0 Inh IH DAILY@0800 30 Days Azithromycin 250 Mg Tablet 500 Mg PO DAILY@1800 5 Days Reported Iprat-Albut 0.5-3(2.5) mg/3 ml (Ipratropium/Albuterol Sulfate) 3 Ml Ampul.neb 3 Ml IH DAILY Escitalopram Oxalate 10 Mg Tablet 10 Mg PO 1700 Losartan Potassium 50 Mg Tablet 50 Mg PO DAILY Famotidine 20 Mg Tablet 20 Mg PO BID WITH MEALS Metformin HCl 500 Mg Tablet 500 Mg PO BID WITH MEALS Metoprolol Succinate 50 Mg Tab.er.24h 50 Mg PO HS Lab results: Laboratory Tests Test 11/12/16 10:56 11/12/16 15:53 11/12/16 20:28 11/13/16 04:00 Range/Units Glucometer 119 H 113 H 155 H 70-110 MG/DL Phosphorus Level 3.0 2.3-4.7 MG/DL Magnesium Level 1.7 L 1.8-2.4 MG/DL Test 11/13/16 05:19 Range/Units Glucometer 112 H 70-110 MG/DL My orders: Orders - NAVARRO OCONNELL MD Attending Discharge (11/13/16 09:24) D/C Home Health Face To Face (11/13/16 09:24) NAVARRO OCONNELL MD Nov 13, 2016 09:29
[2016-11-13] MEDS: cefTRIAXone INJECTION 1,000 MG in NS (IVPB) 50 ML IV SCH (10:01)
[2016-11-13] MEDS: SENNA W/DOCUSATE (SENOKOT S) TABLET PO SCH (10:02)
[2016-11-13] MEDS: ENOXAPARIN 40 MG/0.4 ML (LOVENOX) SYR SC SCH (10:02)
[2016-11-13] MEDS: FAMOTIDINE 20 MG (PEPCID) TABLET PO SCH (10:02)
[2016-11-13] MEDS: AZITHROMYCIN 250 MG TAB (ZITHROMAX) PO SCH (10:02)
[2016-11-13] MEDS: LOSARTAN 50 MG (COZAAR) TAB PO SCH (10:02)
--- NOTE | 2016-11-13 11:23 | Physical Therapy Daily Note ---
PT Daily Note-Current Subjective Pt is laying Supine in bed upon arrival. Pt agrees to walk with PT for tx. Pt reports discharging today, nurse confirmed. Mental Status Patient Orientation: Person, Place, Situation Attachments: Oxygen (2L) Transfers Functional [place] Measure 0=Not Assessed/NA 4=Minimal Assistance 1=Total Assistance 5=Supervision or Setup 2=Maximal Assistance 6=Modified [place] 3=Moderate Assistance 7=Complete IndependenceIRFPAI Quality Coding Scale 6 Independent with activity with or without an assistive device 5 Patient requires set up or clean up by helper. Patient completes activity by themselves 4 Supervision or touching assist (CGA). [place] provide cues , steadying assist 3 The helper provides less than half the effort to complete the activity 2 The helper provides more than half the effort to complete the activity 1 Dependent. The helper does all the effort to complete an activity 7 Patient refused to complete or attempt activity 9 The patient did not perform the activity before the current illness or injury 88 Not attempted due to Medical conditions or safety concerns Scootin Supine to/from Sit: 6 Sit to/from Stand: 5 Weight Bearing Weight Bearing Restriction: Full Weight Bearing Location Restriction: LE Bilateral Gait Training Distance (FIM): 3=150 ft Distance: 300' Gait Level of Assist: 5 Gait Persons Needed: 1 Gait Assistive Device: FWW Pt walks with slow but steady tevin, no LOB. Pt fatigues and returns to room. Treatments Pt transfers from Supine to EOB to Standing using FWW at SBA. Pt ambulates in hallway using FWW at SBA. PT assists pt with managing IV pole and O2. Pt returns to room to rest Supine in bed at end of tx with all needs met. Assessment Current Status: Good Progress Pt is to discharge today per nurse. Pt has gotten stronger and will continue to improve at home. PT Short Term Goals Short Term Goals Time Frame: Nov 23, 2016 Transfers (B,C,W/C) (FIM): 6 Gait (FIM): 6 Distance (FIM): 3=150 ft Gait Level of Assist: 6 Gait Assistive Device: FWW PT Plan Problem List Problem List: Activity Tolerance, Functional Strength, Gait Treatment/Plan Treatment Plan: Continue Plan of Care Treatment Plan: Bed Mobility, Functional Activity [place], Functional Strength, Gait, Therapeutic Exercise, Transfers Treatment Duration: Nov 23, 2016 Visits Per Week: 5 Safety Risks/Education Patient Education: Gait Training, Transfer Techniques, Correct Positioning, Safety Issues Teaching Recipient: Patient Teaching Methods: Discussion Response to Teaching: Verbalize Understanding Time/GCodes Time In: 1000 Time Out: 1020 Total Billed Treatment Time: 20 Total Billed Treatment visit, GT (20m) CLARA SCHMITT PTA Nov 13, 2016 11:23
[2016-11-13 12:00] VITALS: BP 142/81
== END 2016-11-13 13:58 | disposition home health service (06) | DRG 871 ==
LOC: EDUNIT# 16:20 → ER 16:24 → UNDOADMIN 18:35 → ICU 18:35 → 4TH 11-09 12:18 → ENPENDDIS 11-13 14:00
PROVIDERS: ADMIT Family Medicine; ATTEND Family Medicine
DX: A41.9 Sepsis, unspecified organism (principal); J44.0 Chronic obstructive pulmonary disease with (acute) lower respiratory infection; J18.9 Pneumonia, unspecified organism; E11.40 Type 2 diabetes mellitus with diabetic neuropathy, unspecified; I10 Essential (primary) hypertension; K21.9 Gastro-esophageal reflux disease without esophagitis; M19.91 Primary osteoarthritis, unspecified site; K59.00 Constipation, unspecified; R09.02 Hypoxemia; R91.8 Other nonspecific abnormal finding of lung field; Z99.81 Dependence on supplemental oxygen; Z87.440 Personal history of urinary (tract) infections; Z79.84 Long term (current) use of oral hypoglycemic drugs; Z85.42 Personal history of malignant neoplasm of other parts of uterus
CPT/HCPCS: 36415; 71010; 71020; 71260; 80048; 80053; 80202; 81000; 82962; 83605; 83690; 83735; 84100; 84443; 84484; 85007; 85014; 85018; 85025; 85027; 85610; 85730; 87040; 93005; 93041; 94640; 94760; 94761

== ENCOUNTER → 2016-11-18 | Outpatient (CLI) | payer MEDICARE, OTHER ==
[~2016-11-18] MED LIST changes: +FLUT1AER IH; +IPRA3AMP IH; +LACT1CAP62 PO; +SENN-20 PO; +UMEC62.5 IH
[2016-11-18 10:27] LABS: BASOPHILS % (AUTO) 0 % (0-10); EOSINOPHILS # (AUTO) 0.2 10^3/uL (0.0-0.3); EOSINOPHILS % (AUTO) 3 % (0-10); LYMPHOCYTES # (AUTO) 1.7 X 10^3 (1.0-4.0); LYMPHOCYTES % (AUTO) 17 % (12-44); MEAN CORPUSCULAR HEMOGLOBIN 29 PG (25-34); MEAN CORPUSCULAR HGB CONC 32 G/DL (32-36); MEAN CORPUSCULAR VOLUME 92 FL (80-99); MEAN PLATELET VOLUME 9.4 FL (7.4-10.4); MONOCYTES # (AUTO) 0.8 X 10^3 (0.0-1.0); MONOCYTES % (AUTO) 8 % (0-12); NEUTROPHILS # (AUTO) 6.9 X 10^3 (1.8-7.8); NEUTROPHILS % (AUTO) 72 % (42-75); PLATELET COUNT 258 10^3/uL (130-400); RED BLOOD COUNT 4.56 10^6/uL (4.35-5.85); RED CELL DISTRIBUTION WIDTH 15.7 % (10.0-14.5); WHITE BLOOD COUNT 9.7 10^3/uL (4.3-11.0)
--- NOTE | 2016-11-18 10:29 | Diagnostic Imaging Report ---
INDICATION: Sepsis EXAMINATION: PA and lateral chest Heart size and pulmonary vascularity are normal. Lungs are clear. There are no effusions or pneumothoraces. IMPRESSION: No acute abnormalities in the chest. Dictated by: Dictated on workstation # [id number]
[2016-11-18 10:46] LABS: ALBUMIN 4.1 GM/DL (3.2-4.5); BILIRUBIN,TOTAL 0.6 MG/DL (0.1-1.0); CALCIUM 9.3 MG/DL (8.5-10.1); CREATININE SERUM 1.03 MG/DL (0.60-1.30); ICTERUS 0.5 (-100-1.9); POTASSIUM 3.7 MMOL/L (3.6-5.0); TOTAL PROTEIN 7.5 GM/DL (6.4-8.2)
== END ==
LOC: RAD 09:58
PROVIDERS: ATTEND Nurse Practitioner Family
DX: J18.9 Pneumonia, unspecified organism (principal); A41.9 Sepsis, unspecified organism
CPT/HCPCS: 36415; 71020; 80053; 85025

== ENCOUNTER → 2017-03-31 | Outpatient (CLI) | payer MEDICARE, OTHER ==
--- NOTE | 2017-03-31 17:03 | Diagnostic Imaging Report ---
INDICATION: Cough and dyspnea with pneumonia for 2 weeks. PA and lateral views of the chest are obtained with comparison made to study of 11/18/2016. FINDINGS: Heart size and pulmonary vascularity are within normal limits. There is no pneumothorax or consolidation. Advanced degenerative changes are noted about the shoulder girdles, bilaterally. There is no evidence of significant pleural fluid. Diffuse thoracic spondylosis is again noted. IMPRESSION: No acute abnormality or adverse change is seen. Dictated by: Dictated on workstation # [id number]
== END ==
LOC: RAD 15:53
PROVIDERS: ATTEND Nurse Practitioner Family
DX: R05 Cough (principal); R06.00 Dyspnea, unspecified
CPT/HCPCS: 71020

== ENCOUNTER 2017-04-22 09:36 | Emergency (ER) | payer MEDICARE, OTHER ==
[~2017-04-22] VITALS: Ht 157.5 cm; Wt 74.8 kg
[~2017-04-22 09:36] MED LIST changes: +AZIT250T12 PO; -AZIT250T5 PO; -METO-272 PO; +METO-370 PO
--- OUTSIDE RECORDS SUMMARY | 2017-04-22 09:44 | XMS REPORT | Clinical Summary ---
Author Author [facility] Organization [facility] Address Unknown Phone Unavailable Care Team Providers Care Automobile Service Advisor Name Role Phone PCP Unavailable Source Comments Some departments are not documenting in the electronic medical record. If you do not see the information that you expected, contact Release of Information in the Health Information Management department at [phone] for further assistance in locating additional records.[facility] Allergies Active Allergy Reactions Severity Noted Date Comments Levofloxacin UNKNOWN 08/18/2012 Minocycline UNKNOWN 08/18/2012 Current Medications Prescription Sig. Disp. Refills Start End Date Status Date carvedilol (COREG) 3.125 Take 3.125 mg by mouth Active mg tablet twice daily with meals. escitalopram oxalate Take 10 mg by mouth 10/08/19 Active (LEXAPRO) 10 mg tablet daily. 17 famotidine (PEPCID) 20 mg Take 20 mg by mouth twice 10/24/19 Active tablet daily. 17 Revinate 11/14/19 Active 1.5 billion cell cap 17 losartan (COZAAR) 50 mg Take 50 mg by mouth 10/24/19 Active tablet daily. 17 metFORMIN (GLUCOPHAGE) Take 500 mg by mouth 10/24/19 Active 500 mg tablet twice daily with meals. 17 metoprolol XL (TOPROL XL) Take 50 mg by mouth 10/24/19 Active 50 mg extended release daily. 17 tablet Active Problems No known active problems Immunizations Name Dates Previously Given Next Due FLU VACCINE >3YO 03/03/2012 Pneumococcal Vaccine 04/19/2011 (23-Michelle Adult) Varicella-Zoster Vaccine 10/07/2011 (Shingles) Family History Medical History Relation Name Comments Heart Disease Brother Cancer Father Lung COPD Mother Cancer Mother [place] Relation Name Status Comments Brother Daughter MVA Father Mother Social History Tobacco Use Types Packs/Day Years Used Date Never Smoker Smokeless Tobacco: Never Used Alcohol Use Drinks/Week oz/Week Comments No Sex Assigned at Date Recorded Not on file Last Filed Vital Signs Vital Sign Reading Time Taken Blood Pressure 128/43 01/02/2017 9:15 AM CDT Pulse 52 01/02/2017 9:15 AM CDT Temperature 36.7 C (98 F) 01/02/2017 9:10 AM CDT Respiratory Rate 18 01/02/2017 9:10 AM CDT Oxygen Saturation 96% 01/02/2017 9:10 AM CDT Inhaled Oxygen - - Concentration Weight 80.2 kg (176 lb 14.4 oz) 01/02/2017 9:10 AM CDT Height 157.5 cm (5' 2") 01/02/2017 9:10 AM CDT Body Mass Index 32.36 01/02/2017 9:10 AM CDT Plan of Treatment Health Maintenance Due Date Last Done Comments PHYSICAL (COMPREHENSIVE) 1937 EXAM PERTUSSIS VACCINE 1943 TETANUS VACCINE 1949 OSTEOPOROSIS SCREENING 1997 PREVNAR/PNEUMOVAX (#2) 04/19/2012 04/19/2011 INFLUENZA VACCINE 12/31/2016 03/03/2012 SHINGLES VACCINE Completed 10/07/2011 Results Not on filefrom Last 3 Months
[2017-04-22 10:18] LABS: KETONES,URINE 1+ (NEGATIVE); LEUKOCYTE ESTERASE ,URINE 3+ (NEGATIVE); NITRITE,URINE POSITIVE (NEGATIVE); PH,URINE 5 (5-9); PROTEIN,URINE 3+ (NEGATIVE); UROBILINOGEN,URINE 1 MG/DL (NORMAL)
[2017-04-22 10:29] LABS: BILIRUBIN,URINE 1+ (NEGATIVE); SQUAMOUS EPITHELIAL CELL,UR 25-50 /HPF; WBC,URINE 25-50 /HPF
[2017-04-22 10:44] LABS: BASOPHILS % (AUTO) 0 % (0-10); EOSINOPHILS # (AUTO) 0.1 10^3/uL (0.0-0.3); EOSINOPHILS % (AUTO) 2 % (0-10); LYMPHOCYTES # (AUTO) 0.9 X 10^3 (1.0-4.0); LYMPHOCYTES % (AUTO) 15 % (12-44); MEAN CORPUSCULAR HEMOGLOBIN 30 PG (25-34); MEAN CORPUSCULAR HGB CONC 33 G/DL (32-36); MEAN CORPUSCULAR VOLUME 91 FL (80-99); MEAN PLATELET VOLUME 9.1 FL (7.4-10.4); MONOCYTES # (AUTO) 0.6 X 10^3 (0.0-1.0); MONOCYTES % (AUTO) 11 % (0-12); NEUTROPHILS # (AUTO) 4.2 X 10^3 (1.8-7.8); NEUTROPHILS % (AUTO) 73 % (42-75); PLATELET COUNT 239 10^3/uL (130-400); RED BLOOD COUNT 4.87 10^6/uL (4.35-5.85); RED CELL DISTRIBUTION WIDTH 15.1 % (10.0-14.5); WHITE BLOOD COUNT 5.8 10^3/uL (4.3-11.0)
--- NOTE | 2017-04-22 10:59 | ED GI ---
General Chief Complaint: Abdominal/GI Problems Stated Complaint: N/D Nursing Triage Note: AMB TO ROOM C/O DIARRHEA SINCE YESTERDAY NO VMOITING. Sepsis Screen: No Definite Risk Source of Information: Patient Exam Limitations: No Limitations History of Present Illness Time Seen By Provider: 10:58 Initial Comments To ER with abdominal cramping and diarrhea since yesterday. She had 4 episodes of diarrhea yesterday. None today. She did have some incontinence of stool during her sleep last night. No nausea or vomiting. No fevers or chills. No abdominal pains. Her was recently treated here in the emergency room for diarrhea. Additionally, she's been on multiple rounds of antibiotics for pneumonia over the past few months. Timing/Duration: 12-24 Hours Severity/Quality: Moderate, Cramping Location: Generalized Abdomen Radiation: No Radiation Activities at Onset: None Allergies and Home Medications Allergies Coded Allergies: amoxicillin (Verified Allergy, Intermediate, RASH, ITCHING, 02/28/16) ciprofloxacin (Verified Allergy, Intermediate, RASH, ITCHING, 02/28/16) Sulfa (Sulfonamide Antibiotics) (Verified Allergy, Unknown, 06/22/15) linezolid (Verified Allergy, Unknown, 11/10/16) minocycline (Verified Allergy, Unknown, 11/10/16) levofloxacin (Unverified Adverse Reaction, Mild, NAUSEA, 08/06/10) Home Medications Escitalopram Oxalate 10 Mg Tablet, 10 MG PO 1700, (Reported) Famotidine 20 Mg Tablet, 20 MG PO BID WITH MEALS, (Reported) Ipratropium/Albuterol Sulfate 3 Ml Ampul.neb, 3 ML IH DAILY, (Reported) Lactobacillus Acidophilus 1 Each Capsule, 1 EACH PO TID for 30 Days, #90 Prescribed by: NAVARRO OCONNELL on 11/13/1623 Losartan Potassium 50 Mg Tablet, 50 MG PO DAILY, (Reported) Metoprolol Succinate 50 Mg Tab.er.24h, 50 MG PO HS, (Reported) Sennosides/Docusate Sodium 1 Each Tablet, 1 EA PO BID for 30 Days, #60 HOLD IF LOOSE STOOLS Prescribed by: NAVARRO OCONNELL on 11/13/16922 Umeclidinium [place] 62.5 Mcg Blst.w.dev, 0 INH IH DAILY@0800 for 30 Days, #1 Ref 6 Prescribed by: NAVARRO OCONNELL on 11/13/16 0923 Review of Systems Constitutional: see HPI EENTM: No Symptoms Reported Respiratory: No Symptoms Reported Cardiovascular: No Symptoms Reported Gastrointestinal: See HPI, Abdominal Pain, Diarrhea Genitourinary: No Symptoms Reported Musculoskeletal: no symptoms reported Skin: no symptoms reported Psychiatric/Neurological: No Symptoms Reported Endocrine: No Symptoms Reported Past Lunqqke-Mhjbga-Pxghra Hx Patient Social History Alcohol Use: Denies Use Recreational Drug Use: No Smoking Status: Never a Smoker 2nd Hand Smoke Exposure: No Recent Foreign Travel: No Contact w/Someone Who Travel: No Recent Infectious Disease Expo: No Recent Hopitalizations: Yes (UTI 1 MONTH AGO) Immunizations Up To Date Date of Pneumonia Vaccine: May 02, 2016 Date of Influenza Vaccine: May 21, 2016 Seasonal Allergies Seasonal Allergies: No Surgeries History of Surgeries: Yes (Hyterectomy 1961, Knee surgery 2007) Surgeries: Hysterectomy, Orthopedic Respiratory History of Respiratory Disorde: Yes (WEARS HOME O2 AT [facility]) Respiratory Disorders: Pneumonia, COPD Currently Using CPAP: No Currently Using BIPAP: No Cardiovascular History of Cardiac Disorders: Yes Cardiac Disorders: Hypertension Neurological History of Neurological Disord: No Neurological Disorders: Neuropathy Reproductive System Hx 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) Sexually Transmitted Disease: No HIV/AIDS: No EVENTS INTERN History: Hysterectomy Genitourinary History of Genitourinary Disor: No Gastrointestinal History of Gastrointestinal Di: No Musculoskeletal History of Musculoskeletal Dis: Yes Musculoskeletal Disorders: Arthritis Endocrine History of Endocrine Disorders: Yes Endocrine Disorders: Diabetes, Non-Insulin dep HEENT HEENT Disorders: Cataract Loss of Vision: Denies Hearing Impairment: Hard of Hearing Cancer History of Cancer: Yes Cancer: Uterine Psychosocial History of Psychiatric Problem: No Integumentary History of Skin or Integumenta: No Blood Transfusions History of Blood Disorders: No Family Medical History Significant Family History: Hypertension Physical Exam Vital Signs VS - Last 72 Hours, by Label 04/22/17 09:50 Temp 97.4 Pulse 92 Resp 18 B/P (MAP) 144/78 Pulse Ox 94 O2 Delivery Room Air Capillary Refill : Less Than 3 Seconds General Appearance: WD/WN, no apparent distress HEENT: PERRL/EOMI, normal ENT inspection Neck: non-tender, full range of motion Respiratory: normal breath sounds, no respiratory distress, no accessory muscle use Cardiovascular: regular rate, rhythm, no murmur Gastrointestinal: normal bowel sounds, non tender, soft Extremities: normal range of motion, non-tender Neurologic/Psychiatric: alert, normal mood/affect, oriented x 3 Skin: normal color, warm/dry Progress/Results/Core Measures Results/Orders Lab Results Laboratory Tests Test 04/22/17 10:08 04/22/17 10:37 Range/Units Urine Color YELLOW Urine Clarity VERY CLOUDY H Urine pH 5 5-9 Urine Specific [place] 1.025 H 1.016-1.022 Urine Protein 3+ H NEGATIVE Urine Glucose (UA) NEGATIVE NEGATIVE Urine Ketones 1+ H NEGATIVE Urine Nitrite POSITIVE H NEGATIVE Urine Bilirubin 1+ H NEGATIVE Urine Urobilinogen 1 NORMAL MG/DL Urine Leukocyte Esterase 3+ H NEGATIVE Urine RBC (Auto) 2+ H NEGATIVE Urine RBC 5-10 H /HPF Urine WBC 25-50 H /HPF Urine Squamous Epithelial Cells 25-50 H /HPF Urine Crystals NONE /LPF Urine Bacteria MODERATE H /HPF Urine Casts NONE /LPF Urine Mucus NEGATIVE /LPF Urine Culture Indicated YES White Blood Count 5.8 4.3-11.0 10^3/uL Red Blood Count 4.87 4.35-5.85 10^6/uL Hemoglobin 14.5 11.5-16.0 G/DL Hematocrit 44 35-52 % Mean Corpuscular Volume 91 80-99 FL Mean Corpuscular Hemoglobin 30 25-34 PG Mean Corpuscular Hemoglobin Concent 33 32-36 G/DL Red Cell Distribution Width 15.1 H 10.0-14.5 % Platelet Count 239 130-400 10^3/uL Mean Platelet Volume 9.1 7.4-10.4 FL Neutrophils (%) (Auto) 73 42-75 % Lymphocytes (%) (Auto) 15 12-44 % Monocytes (%) (Auto) 11 0-12 % Eosinophils (%) (Auto) 2 0-10 % Basophils (%) (Auto) 0 0-10 % Neutrophils # (Auto) 4.2 1.8-7.8 X 10^3 Lymphocytes # (Auto) 0.9 L 1.0-4.0 X 10^3 Monocytes # (Auto) 0.6 0.0-1.0 X 10^3 Eosinophils # (Auto) 0.1 0.0-0.3 10^3/uL Basophils # (Auto) 0.0 0.0-0.1 10^3/uL Sodium Level 143 135-145 MMOL/L Potassium Level 3.7 3.6-5.0 MMOL/L Chloride Level 109 H 98-107 MMOL/L Carbon Dioxide Level 20 L 21-32 MMOL/L Anion Gap 14 5-14 MMOL/L Blood Urea Nitrogen 15 7-18 MG/DL Creatinine 1.04 0.60-1.30 MG/DL Estimat Glomerular Filtration Rate 50 BUN/Creatinine Ratio 14 Glucose Level 168 H 70-105 MG/DL Calcium Level 8.7 8.5-10.1 MG/DL Total Bilirubin 0.6 0.1-1.0 MG/DL Aspartate Amino Transf (AST/SGOT) 22 5-34 U/L Alanine Aminotransferase (ALT/SGPT) 20 0-55 U/L Alkaline Phosphatase 71 40-136 U/L Total Protein 7.1 6.4-8.2 GM/DL Albumin 3.7 3.2-4.5 GM/DL Lipase 12 8-78 U/L My Orders Orders - YADY CARMICHAEL APRN Loperamide Capsule (Imodium Capsule) (04/22/17 11:00) Vital Signs/I&O Vital Sign - Last 12Hours 04/22/17 09:50 Temp 97.4 Pulse 92 Resp 18 B/P (MAP) 144/78 Pulse Ox 94 O2 Delivery Room Air Blood Pressure Mean: 100 Departure Impression Impression: Primary Impression: Urinary tract infection Additional Impression: Acute diarrhea Disposition: 01 HOME, SELF-CARE Condition: Stable Departure-Patient Inst. Decision time for Depature: 11:16 Referrals: NAVARRO OCONNELL MD (PCP/Family) Primary Care Physician Patient Instructions: Diarrhea in Adolescents and Adults Add. Discharge Instructions: 1. Drink plenty of fluids to stay hydrated. Pedialyte is a great choice. Antibiotics as directed for the bladder infection. Follow-up with your doctor later this week. Return to ER for any abdominal pains, fevers or worsening diarrhea. All discharge instructions reviewed with patient and/or family. Voiced understanding. Scripts L.acidoph & Paracasei,B.lactis (Probiotic) 1 Each Capsule 1 EACH PO TID, #21 CAP Prov: YADY CARMICHAEL APRN 04/22/17 Cefuroxime Axetil (Cefuroxime) 250 Mg Tablet 250 MG PO BID, #10 TAB Prov: YADY CARMICHAEL APRN 04/22/17 YADY CARMICHAEL APRN Apr 22, 2017 10:59
[2017-04-22] MEDS ORDERED: LOPERAMIDE 2 MG (IMODIUM) CAP PO ONE (11:00)
[2017-04-22 11:04] LABS: ALBUMIN 3.7 GM/DL (3.2-4.5); BILIRUBIN,TOTAL 0.6 MG/DL (0.1-1.0); CALCIUM 8.7 MG/DL (8.5-10.1); CREATININE SERUM 1.04 MG/DL (0.60-1.30); POTASSIUM 3.7 MMOL/L (3.6-5.0); TOTAL PROTEIN 7.1 GM/DL (6.4-8.2)
[2017-04-22] MEDS ORDERED: CEFU250T80 PO (11:18)
[2017-04-22] MEDS ORDERED: L.AC1CAP6 PO (11:18)
[2017-04-22] MEDS ORDERED: NS IV 500 ML 500 ML IV SCH (11:45)
[2017-04-22 12:50] VITALS: BP 144/62
== END 2017-04-22 12:50 | disposition home or self-care (01) ==
LOC: EDUNIT# 09:36 → ER 09:38
DX: N39.0 Urinary tract infection, site not specified (principal); R19.7 Diarrhea, unspecified; J44.9 Chronic obstructive pulmonary disease, unspecified; I10 Essential (primary) hypertension; E11.40 Type 2 diabetes mellitus with diabetic neuropathy, unspecified; M19.90 Unspecified osteoarthritis, unspecified site; Z85.42 Personal history of malignant neoplasm of other parts of uterus; Z90.710 Acquired absence of both cervix and uterus; Z87.01 Personal history of pneumonia (recurrent)
CPT/HCPCS: 36415; 80053; 81000; 83690; 85025; 87077; 87088; 87186; 96360; 99283

== ENCOUNTER 2017-06-09 13:38 | Emergency (ER) | payer MEDICARE, OTHER ==
[~2017-06-09] VITALS: Ht 157.5 cm; Wt 81.6 kg
[~2017-06-09 13:38] MED LIST changes: +CEFU250T80 PO; +L.AC1CAP6 PO
--- NOTE | 2017-06-09 13:55 | ED General ---
General Stated Complaint: PNEUMONIA Source of Information: Patient Exam Limitations: No Limitations History of Present Illness Time Seen by Provider: 13:53 Initial Comments . When asked how long she's been feeling poorly she states "it comes and goes". She denies shortness of breath, chest pain or nausea however shortly after I leave the room she begins vomiting. She denies pain in her chest abdomen or anywhere. She is unable to be anymore specific about how she feels poorly. Timing/Duration: Other (uncertain) Severity: Moderate Allergies and Home Medications Allergies Coded Allergies: amoxicillin (Verified Allergy, Intermediate, RASH, ITCHING, 02/28/16) ciprofloxacin (Verified Allergy, Intermediate, RASH, ITCHING, 02/28/16) Sulfa (Sulfonamide Antibiotics) (Verified Allergy, Unknown, 06/22/15) linezolid (Verified Allergy, Unknown, 11/10/16) minocycline (Verified Allergy, Unknown, 11/10/16) levofloxacin (Unverified Adverse Reaction, Mild, NAUSEA, 08/06/10) Home Medications Cefuroxime Axetil 250 Mg Tablet, 250 MG PO BID, #10 Prescribed by: YADY CAMRICHAEL on 04/22/17 1118 Escitalopram Oxalate 10 Mg Tablet, 10 MG PO 1700, (Reported) Famotidine 20 Mg Tablet, 20 MG PO BID WITH MEALS, (Reported) Ipratropium/Albuterol Sulfate 3 Ml Ampul.neb, 3 ML IH DAILY, (Reported) L.acidoph & Paracasei,B.lactis 1 Each Capsule, 1 EACH PO TID, #21 Prescribed by: YADY CARMICHAEL on 04/22/17 1118 Lactobacillus Acidophilus 1 Each Capsule, 1 EACH PO TID for 30 Days, #90 Prescribed by: NAVARRO AVINA on 11/13/16922 Losartan Potassium 50 Mg Tablet, 50 MG PO DAILY, (Reported) Metoprolol Succinate 50 Mg Tab.er.24h, 50 MG PO HS, (Reported) Sennosides/Docusate Sodium 1 Each Tablet, 1 EA PO BID for 30 Days, #60 HOLD IF LOOSE STOOLS Prescribed by: NAVARRO AVINA on 11/13/16922 Umeclidinium [place] 62.5 Mcg Blst.w.dev, 0 INH IH DAILY@0800 for 30 Days, #1 Ref 6 Prescribed by: NAVARRO AVINA on 11/13/16922 Constitutional: see HPI EENTM: see HPI Respiratory: no symptoms reported Cardiovascular: no symptoms reported Genitourinary: no symptoms reported Musculoskeletal: no symptoms reported Skin: no symptoms reported Psychiatric/Neurological: No Symptoms Reported Hematologic/Lymphatic: No Symptoms Reported Past Ojyftne-Xecrwo-Gutnbf Hx Patient Social History 2nd Hand Smoke Exposure: No Recent Hopitalizations: Yes (UTI 1 MONTH AGO) Immunizations Up To Date Date of Pneumonia Vaccine: May 02, 2016 Date of Influenza Vaccine: May 21, 2016 Seasonal Allergies Seasonal Allergies: No Surgeries History of Surgeries: Yes (Hyterectomy 1961, Knee surgery 2007) Surgeries: Hysterectomy, Orthopedic Respiratory History of Respiratory Disorde: Yes (WEARS HOME O2 AT [facility]) Respiratory Disorders: Pneumonia, COPD Currently Using CPAP: No Currently Using BIPAP: No Cardiovascular History of Cardiac Disorders: Yes Cardiac Disorders: Hypertension Neurological History of Neurological Disord: No Neurological Disorders: Neuropathy Reproductive System Hx 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) Sexually Transmitted Disease: No HIV/AIDS: No 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 Genitourinary History of Genitourinary Disor: No Gastrointestinal History of Gastrointestinal Di: No Musculoskeletal History of Musculoskeletal Dis: Yes Musculoskeletal Disorders: Arthritis Endocrine History of Endocrine Disorders: Yes Endocrine Disorders: Diabetes, Non-Insulin dep HEENT HEENT Disorders: Cataract Loss of Vision: Denies Hearing Impairment: Hard of Hearing Cancer History of Cancer: Yes Cancer: Uterine Psychosocial History of Psychiatric Problem: No Integumentary History of Skin or Integumenta: No Blood Transfusions History of Blood Disorders: No Family Medical History Significant Family History: Hypertension Physical Exam Vital Signs Vital Sign - Last 12Hours 06/09/17 14:10 Temp 97.9 Pulse 86 Resp 18 B/P (MAP) 138/49 (78) Pulse Ox 100 O2 Delivery Nasal Cannula O2 Flow Rate 6.00 Capillary Refill : General Appearance: No Apparent Distress, WD/WN, Other (no tachypnea or respiratory distress. Initial vital signs are unremarkable.) Eyes: Bilateral Eye Normal Inspection, Bilateral Eye PERRL, Bilateral Eye EOMI HEENT: PERRL/EOMI, TMs Normal Neck: Full Range of Motion, Normal Inspection Respiratory: Normal Breath Sounds, No Accessory Muscle Use, No Respiratory Distress Cardiovascular: Regular Rate, Rhythm, Normal Peripheral Pulses Gastrointestinal: Normal Bowel Sounds, Non Tender, Soft Extremity: Normal Capillary Refill, Normal Inspection Neurologic/Psychiatric: Alert, Oriented x3, No Motor/Sensory Deficits Skin: Normal Color, Warm/Dry Focused Exam Evaluation Lactate Level Laboratory Tests 06/09/17 13:48: Lactic Acid Level 3.28*H 06/09/17 16:02: Lactic Acid Level 2.28*H Lactic Acid Level Laboratory Tests Test 06/09/17 13:48 06/09/17 16:02 Lactic Acid Level 3.28 MMOL/L (0.50-2.00) *H 2.28 MMOL/L (0.50-2.00) *H Progress/Results/Core Measures Suspected Sepsis SIRS Temperature: Pulse: Respiratory Rate: Laboratory Tests 06/09/17 13:48: White Blood Count 4.5 Blood Pressure / Mean: Laboratory Tests 06/09/17 13:48: Lactic Acid Level 3.28*H 06/09/17 16:02: Lactic Acid Level 2.28*H Laboratory Tests 06/09/17 13:48: Creatinine 0.91, Platelet Count 284, Total Bilirubin 0.4 Results/Orders Lab Results Laboratory Tests Test 06/09/17 13:48 06/09/17 16:02 06/09/17 16:47 Range/Units White Blood Count 4.5 4.3-11.0 10^3/uL Red Blood Count 5.17 4.35-5.85 10^6/uL Hemoglobin 15.0 11.5-16.0 G/DL Hematocrit 50 35-52 % Mean Corpuscular Volume 96 80-99 FL Mean Corpuscular Hemoglobin 29 25-34 PG Mean Corpuscular Hemoglobin Concent 30 L 32-36 G/DL Red Cell Distribution Width 14.3 10.0-14.5 % Platelet Count 284 130-400 10^3/uL Mean Platelet Volume 9.9 7.4-10.4 FL Neutrophils (%) (Auto) 86 H 42-75 % Lymphocytes (%) (Auto) 14 12-44 % Monocytes (%) (Auto) 0 0-12 % Eosinophils (%) (Auto) 0 0-10 % Basophils (%) (Auto) 0 0-10 % Neutrophils # (Auto) 3.9 1.8-7.8 X 10^3 Lymphocytes # (Auto) 0.6 L 1.0-4.0 X 10^3 Monocytes # (Auto) 0.0 0.0-1.0 X 10^3 Eosinophils # (Auto) 0.0 0.0-0.3 10^3/uL Basophils # (Auto) 0.0 0.0-0.1 10^3/uL Sodium Level 141 135-145 MMOL/L Potassium Level 3.5 L 3.6-5.0 MMOL/L Chloride Level 106 98-107 MMOL/L Carbon Dioxide Level 22 21-32 MMOL/L Anion Gap 13 5-14 MMOL/L Blood Urea Nitrogen 18 7-18 MG/DL Creatinine 0.91 0.60-1.30 MG/DL Estimat Glomerular Filtration Rate 59 BUN/Creatinine Ratio 20 Glucose Level 115 H 70-105 MG/DL Lactic Acid Level 3.28 *H 2.28 *H 0.50-2.00 MMOL/L Calcium Level 8.8 8.5-10.1 MG/DL Total Bilirubin 0.4 0.1-1.0 MG/DL Aspartate Amino Transf (AST/SGOT) 18 5-34 U/L Alanine Aminotransferase (ALT/SGPT) 16 0-55 U/L Alkaline Phosphatase 92 40-136 U/L Troponin I < 0.30 <0.30 NG/ML B-Type Natriuretic Peptide 116.5 H <100.0 PG/ML Total Protein 7.0 6.4-8.2 GM/DL Albumin 3.5 3.2-4.5 GM/DL Urine Color YELLOW Urine Clarity CLEAR Urine pH 5 5-9 Urine Specific [place] 1.020 1.016-1.022 Urine Protein 1+ H NEGATIVE Urine Glucose (UA) NEGATIVE NEGATIVE Urine Ketones NEGATIVE NEGATIVE Urine Nitrite NEGATIVE NEGATIVE Urine Bilirubin NEGATIVE NEGATIVE Urine Urobilinogen NORMAL NORMAL MG/DL Urine Leukocyte Esterase 2+ H NEGATIVE Urine RBC (Auto) NEGATIVE NEGATIVE Urine RBC NONE /HPF Urine WBC 2-5 /HPF Urine Squamous Epithelial Cells 10-25 H /HPF Urine Crystals PRESENT H /LPF Urine Calcium Oxalate Crystals FEW H /LPF Urine Bacteria TRACE /HPF Urine Casts PRESENT /LPF Urine Hyaline Casts 5-10 H /LPF Urine Mucus SMALL H /LPF Urine Culture Indicated NO My Orders Orders - YADY CARMICHAEL BRICKMASON APPRENTICE Cbc With Automated Diff (06/09/17 13:42) Comprehensive Metabolic Panel (06/09/17 13:42) Ua Culture If Indicated (06/09/17 13:42) Chest 1 View, Ap/Pa Only (06/09/17 13:42) Troponin I (06/09/17 13:42) Ekg Tracing (06/09/17 13:42) Blood Culture (06/09/17 13:42) Lactic Acid Analyzer (06/09/17 13:42) Albuterol/Ipra Inhalation Soln (Duoneb I (06/09/17 14:00) Svn Sm Volume Nebulizer Rt-Rfs (06/09/17 13:47) Ondansetron Injection (Zofran Injectio (06/09/17 14:00) Ns Iv 1000 Ml (Sodium Chloride 0.9%) (06/09/17 15:00) Ct Abdomen/Pelvis Wo (06/09/17 15:54) Lactic Acid Analyzer (06/09/17 15:55) BNP (06/09/17 16:49) Medications Given in ED Current Medications Medications Dose Ordered Sig/Lidia Route Start Time Stop Time Status Last Admin Dose Admin Albuterol/ Ipratropium 3 ml ONCE ONCE INH 06/09/17 14:00 06/09/17 14:01 DC 06/09/17 14:41 3 ML Ondansetron HCl 8 mg ONCE ONCE IVP 06/09/17 14:00 06/09/17 14:01 DC 06/09/17 14:08 8 MG Vital Signs/I&O Vital Sign - Last 12Hours 06/09/17 06/09/17 14:10 14:41 Temp 97.9 Pulse 86 Resp 18 B/P (MAP) 138/49 (78) Pulse Ox 100 97 O2 Delivery Nasal Cannula Nasal Cannula O2 Flow Rate 6.00 5.00 Capillary Refill : Diagnostic Imaging Diagonstic Imaging: Xray Comments NAME: PALOMA GRESHAM [facility] REC#: [id number] PT STATUS: REG ER : 1930 PHYSICIAN: YADY CARMICHAEL BRICKMASON APPRENTICE ADMIT DATE: 06/09/17/ER Draft Date of Exam:06/09/17 CHEST 1 VIEW, AP/PA ONLY INDICATION: Pneumonia. COMPARISON: 03/31/2017. FINDINGS: The lungs are clear. The heart and vessels are normal. There is no effusion or pneumothorax. IMPRESSION: No acute appearing abnormality. Dictated on workstation # [id number] Dict: 06/09/17 1436 Trans: 06/09/17 1441 [place] [id number] Interpreted by: WINSOME GARCIA Electronically signed by: NAME: PALOMA GRESHAM [facility] REC#: [id number] PT STATUS: REG ER : 1930 PHYSICIAN: YADY CARMICHAEL BRICKMASON APPRENTICE ADMIT DATE: 06/09/17/ER Draft Date of Exam:06/09/17 CT ABDOMEN/PELVIS WO PROCEDURE: CT abdomen and pelvis without contrast. TECHNIQUE: Multiple contiguous axial images were obtained through the abdomen and pelvis without the use of intravenous contrast. INDICATION: Abdominal pain with nausea and vomiting. COMPARISON: 09/12/2016. FINDINGS: The lung bases are clear. There are a few calcified granulomas in the liver and spleen. The gallbladder is unremarkable. There is no biliary ductal dilatation. The pancreas is unremarkable. The adrenal glands are unremarkable. There appears to be some parapelvic cysts in the left kidney. There is no evidence of nephrolithiasis or obstructive uropathy. The abdominal aorta is nonaneurysmal. There is diverticular disease, particularly of the sigmoid colon. There is no definitive evidence of diverticulitis. The bladder is normal. There is no pelvic mass or adenopathy. There is no free air. There is no ascites. There are no focal inflammatory changes. There are degenerative changes in the lumbar spine. IMPRESSION: Parapelvic cysts in the left kidney. 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 Some mucosal thickening may be present; however, this could also be due to incomplete distention. Recommend clinical correlation. Degenerative changes in the spine. No other acute abnormalities in the abdomen or pelvis. Dictated on workstation # [id number] Dict: 06/09/17 1640 Trans: 06/09/17 1648 [id number] Interpreted by: ASHLYN LOMAX MD Electronically signed by: Departure Communication (Admissions) Progress Notes I spoke with Dr. Avina. We will discharge the patient to home given improvement in symptoms and patient's propensity to catch any respiratory virus going around. She is already oxygen dependent intermittently at home. Patient agrees with this plan. Impression Impression: Primary Impression: Nausea and vomiting Disposition: HOME, SELF-CARE Condition: Stable Departure-Patient Inst. Decision time for Depature: 17:39 Referrals: NAVARRO AVINA MD (PCP/Family) Primary Care Physician Patient Instructions: NO INSTRUCTIONS GIVEN Add. Discharge Instructions: 1. Clear liquids only for the rest of tonight this would be Gatorade, chicken broth, Jell-O. Return to ER for any worsening. Scripts Ondansetron (Zofran Odt) 8 Mg Tab.rapdis 8 MG PO Q6H Y for NAUSEA/VOMITING-1ST LINE, #10 TAB Prov: YADY CARMICHAEL APRN 06/09/17 YADY CARMICHAEL APRN Jun 09, 2017 13:55
[2017-06-09] MEDS ORDERED: ONDANSETRON 4 MG/2 ML (SDV) Z0FRAN IVP ONE (14:00)
[2017-06-09] MEDS ORDERED: RT-ALBUTEROL/IPRATROPIUM 3 ML (DUONEB) VIAL INH ONE (14:00)
[2017-06-09 14:07] LABS: BASOPHILS % (AUTO) 0 % (0-10); EOSINOPHILS % (AUTO) 0 % (0-10); HEMATOCRIT 50 % (35-52); LYMPHOCYTES % (AUTO) 14 % (12-44); MEAN CORPUSCULAR HEMOGLOBIN 29 PG (25-34); MEAN CORPUSCULAR HGB CONC 30 G/DL (32-36); MEAN CORPUSCULAR VOLUME 96 FL (80-99); MEAN PLATELET VOLUME 9.9 FL (7.4-10.4); MONOCYTES % (AUTO) 0 % (0-12); NEUTROPHILS % (AUTO) 86 % (42-75); PLATELET COUNT 284 10^3/uL (130-400); RED BLOOD COUNT 5.17 10^6/uL (4.35-5.85); RED CELL DISTRIBUTION WIDTH 14.3 % (10.0-14.5); WHITE BLOOD COUNT 4.5 10^3/uL (4.3-11.0)
[2017-06-09 14:08] LABS: LYMPHOCYTES # (AUTO) 0.6 X 10^3 (1.0-4.0); NEUTROPHILS # (AUTO) 3.9 X 10^3 (1.8-7.8)
[2017-06-09 14:22] LABS: ALANINE AMINOTRANSFERASE 16 U/L (0-55); ALBUMIN 3.5 GM/DL (3.2-4.5); ALKALINE PHOSPHATASE 92 U/L (40-136); BILIRUBIN,TOTAL 0.4 MG/DL (0.1-1.0); BUN/CREATININE RATIO 20; CALCIUM 8.8 MG/DL (8.5-10.1); CARBON DIOXIDE 22 MMOL/L (21-32); CHLORIDE 106 MMOL/L (98-107); CREATININE SERUM 0.91 MG/DL (0.60-1.30); GFR ESTIMATED 59; GLUCOSE 115 MG/DL (70-105); POTASSIUM 3.5 MMOL/L (3.6-5.0); SODIUM 141 MMOL/L (135-145)
--- NOTE | 2017-06-09 14:42 | Diagnostic Imaging Report ---
INDICATION: Pneumonia. COMPARISON: 03/31/2017. FINDINGS: The lungs are clear. The heart and vessels are normal. There is no effusion or pneumothorax. IMPRESSION: No acute appearing abnormality. Dictated by: Dictated on workstation # [id number]
[2017-06-09] MEDS ORDERED: NS IV 1000 ML 1,000 ML IV SCH (15:00)
--- NOTE | 2017-06-09 16:48 | Diagnostic Imaging Report ---
PROCEDURE: CT abdomen and pelvis without contrast. TECHNIQUE: Multiple contiguous axial images were obtained through the abdomen and pelvis without the use of intravenous contrast. INDICATION: Abdominal pain with nausea and vomiting. COMPARISON: 09/12/2016. FINDINGS: The lung bases are clear. There are a few calcified granulomas in the liver and spleen. The gallbladder is unremarkable. There is no biliary ductal dilatation. The pancreas is unremarkable. The adrenal glands are unremarkable. There appears to be some parapelvic cysts in the left kidney. There is no evidence of nephrolithiasis or obstructive uropathy. The abdominal aorta is nonaneurysmal. There is diverticular disease, particularly of the sigmoid colon. There is no definitive evidence of diverticulitis. The bladder is normal. There is no pelvic mass or adenopathy. There is no free air. There is no ascites. There are no focal inflammatory changes. There are degenerative changes in the lumbar spine. IMPRESSION: Parapelvic cysts in the left kidney. 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 Some mucosal thickening may be present; however, this could also be due to incomplete distention. Recommend clinical correlation. Degenerative changes in the spine. No other acute abnormalities in the abdomen or pelvis. Dictated by: Dictated on workstation # [id number]
[2017-06-09 17:04] LABS: BILIRUBIN,URINE NEGATIVE (NEGATIVE); CLARITY,URINE CLEAR; COLOR,URINE YELLOW; GLUCOSE, URINE (UA) NEGATIVE (NEGATIVE); KETONES,URINE NEGATIVE (NEGATIVE); LEUKOCYTE ESTERASE ,URINE 2+ (NEGATIVE); NITRITE,URINE NEGATIVE (NEGATIVE); PH,URINE 5 (5-9); PROTEIN,URINE 1+ (NEGATIVE); UROBILINOGEN,URINE NORMAL (NORMAL)
[2017-06-09 17:17] LABS: BACTERIA,URINE TRACE /HPF; CALCIUM OXALATE CRYSTALS,UR FEW /LPF
[2017-06-09] MEDS ORDERED: ONDA8TAB9 PO ×2 (17:41→18:20)
[2017-06-09 18:20] VITALS: BP 99/64
== END 2017-06-09 18:20 | disposition home or self-care (01) ==
LOC: EDUNIT# 13:38 → ER 13:39
DX: R11.2 Nausea with vomiting, unspecified (principal); J44.9 Chronic obstructive pulmonary disease, unspecified; I10 Essential (primary) hypertension; E11.9 Type 2 diabetes mellitus without complications; Z85.42 Personal history of malignant neoplasm of other parts of uterus; Z87.01 Personal history of pneumonia (recurrent); Z90.710 Acquired absence of both cervix and uterus
CPT/HCPCS: 36415; 71045; 74176; 80053; 81000; 83605; 83880; 84484; 85025; 87040; 93005; 96361; 96374

== ENCOUNTER → 2017-10-21 | Outpatient (CLI) | payer MEDICARE, OTHER ==
[~2017-10-21] MED LIST changes: -METF500T4 PO; +METF500T5 PO; +ONDA8TAB9 PO
--- NOTE | 2017-10-21 16:18 | Diagnostic Imaging Report ---
INDICATION: Cough. PA and lateral chest obtained at 3:33 p.m. FINDINGS: Heart and mediastinal silhouette are normal in appearance. The lungs appear clear. There is no pneumothorax or pleural fluid. IMPRESSION: No acute process in the chest. No change from 06/09/17. Dictated by: Dictated on workstation # [id number]
== END ==
LOC: RAD 14:58
PROVIDERS: ATTEND Nurse Practitioner Family
DX: R05 Cough (principal)
CPT/HCPCS: 71046

== ENCOUNTER → 2018-01-05 | Outpatient (CLI) | payer MEDICARE, OTHER ==
[~2018-01-05] MED LIST changes: -CODE118S2 PO; +CODE118S4 PO; -IPRA3AMP IH; -IPRA3AMP INH; +IPRA3AMP31 IH; +IPRA3AMP31 INH
--- NOTE | 2018-01-05 13:58 | Diagnostic Imaging Report ---
INDICATION: Right hip pain x4 days. No known injury. TECHNIQUE: 2 views of the right hip. CORRELATION STUDY: None FINDINGS: Moderate joint space narrowing is present. Mild osteophyte formation off the acetabulum. The bony trabecular pattern intact. No acute fracture. Visualized portions of the right hemipelvis are unremarkable. IMPRESSION: 1. Negative for acute bony abnormality of the right hip. Degenerative changes with joint space narrowing present. Dictated by: Dictated on workstation # [id number]
== END ==
LOC: RAD 12:16
PROVIDERS: ATTEND Nurse Practitioner Family
DX: M16.11 Unilateral primary osteoarthritis, right hip (principal)
CPT/HCPCS: 73502

== ENCOUNTER 2018-01-07 17:00 | Emergency (ER) | payer MEDICARE, OTHER ==
[~2018-01-07] VITALS: Ht 157.5 cm; Wt 78.0 kg
--- OUTSIDE RECORDS SUMMARY | 2018-01-07 17:08 | XMS REPORT | Clinical Summary ---
Author Author [facility] Organization [facility] Address Unknown Phone Unavailable Care Team Providers Care Membership Administrator Name Role Phone Rishabh Soriano MD Unavailable Juliana Avina MD PCP Source Comments Some departments are not documenting in the electronic medical record. If you do not see the information that you expected, contact Release of Information in the Health Information Management department at [phone] for further assistance in locating additional records.[facility] Allergies Active Allergy Reactions Severity Noted [...] mouth twice 10/24/19 Active tablet daily. 17 [facility] 11/14/19 Active 1.5 billion cell cap 17 losartan (COZAAR) 50 mg Take 50 mg by mouth 10/24/19 Active tablet daily. 17 metFORMIN (GLUCOPHAGE) Take 500 mg by mouth 10/24/19 Active 500 mg tablet twice daily with meals. 17 metoprolol XL (TOPROL XL) Take 50 mg by mouth 10/24/19 Active 50 mg extended release daily. 17 tablet nystatin (NYSTOP) 100,000 Apply topically to Active unit/g topical powder affected area twice daily. 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 Respiratory Rate 16 05/22/2017 11:09 AM BOARD CERTIFIED MUSIC THERAPIST Oxygen Saturation 94% 05/22/2017 11:09 AM BOARD CERTIFIED MUSIC THERAPIST Inhaled Oxygen - - Concentration Weight 81.6 kg (180 lb) 05/22/2017 11:09 AM BOARD CERTIFIED MUSIC THERAPIST Height 157.5 cm (5' 2") 05/22/2017 11:09 AM BOARD CERTIFIED MUSIC THERAPIST Body Mass Index 32.92 05/22/2017 11:09 AM BOARD 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
--- NOTE | 2018-01-07 17:35 | ED General ---
General Chief Complaint: General Problems/Pain Stated Complaint: DIABETIC;CLAMY FEELING Nursing Triage Note: PT AMBULATES TO ROOM 7 PT CO OF GENERALIZED WEAKNESS, PT STATES HAD CHILLS ON FRIDAY NITE, PT STATES WAS HURTING ALOT ON FRIDAY AND STARTED USING VOLTRAN GEL PT STATES NOT ARTHRITIS PAIN AT THIS X. PT STATES DOES NOT FEEL WELL Nursing Sepsis Screen: No Definite Risk Source of Information: Patient Exam Limitations: No Limitations History of Present Illness Date Seen by Provider: Jan 07, 2018 Time Seen by Provider: 17:34 Initial Comments To ER with chills and generalized weakness for the past few days. She denies cough or shortness of breath. She does report burning upon urination. Timing/Duration: 1-2 Days Severity: Moderate Associated Systoms: Fever/Chills, Malaise Allergies and Home Medications Allergies Coded Allergies: amoxicillin (Verified Allergy, Intermediate, RASH, ITCHING, 02/28/16) ciprofloxacin (Verified Allergy, Intermediate, RASH, ITCHING, 02/28/16) Sulfa (Sulfonamide Antibiotics) (Verified Allergy, Unknown, 06/22/15) linezolid (Verified Allergy, Unknown, 11/10/16) minocycline (Verified Allergy, Unknown, 11/10/16) levofloxacin (Unverified Adverse Reaction, Mild, NAUSEA, 08/06/10) Home Medications Cefdinir 300 Mg Capsule, 300 MG PO BID Prescribed by: YADY CARMICHAEL on 01/07/18 181 Cefuroxime Axetil 250 Mg Tablet, 250 MG PO BID Prescribed by: YADY CARMICHAEL on 04/22/17 1118 Escitalopram Oxalate 10 Mg Tablet, 10 MG PO 1700, (Reported) Famotidine 20 Mg Tablet, 20 MG PO BID WITH MEALS, (Reported) Ipratropium/Albuterol Sulfate 3 Ml Ampul.neb, 3 ML IH DAILY, (Reported) L.acidoph & Paracasei,B.lactis 1 Each Capsule, 1 EACH PO TID Prescribed by: YADY CARMICHAEL on 04/22/17 111 Lactobacillus Acidophilus 1 Each Capsule, 1 EACH PO TID Prescribed by: NAVARRO AVINA on 11/13/16 0923 Losartan Potassium 50 Mg Tablet, 50 MG PO DAILY, (Reported) Metoprolol Succinate 50 Mg Tab.er.24h, 50 MG PO HS, (Reported) Ondansetron 8 Mg Tab.rapdis, 8 MG PO Q6H PRN for NAUSEA/VOMITING-1ST LINE . Prescribed by: YADY CARMICHAEL on 06/09/17 1820 Sennosides/Docusate Sodium 1 Each Tablet, 1 EA PO BID HOLD IF LOOSE STOOLS Prescribed by: NAVARRO AVINA on 11/13/16922 Umeclidinium Tony 62.5 Mcg Blst.w.dev, 0 INH IH DAILY@0800 Prescribed by: NAVARRO AVINA on 11/13/16922 Patient Home Medication List Home Medication List Reviewed: Yes Review of Systems Constitutional: see HPI, chills, weakness EENTM: see HPI Respiratory: no symptoms reported Cardiovascular: no symptoms reported Genitourinary: no symptoms reported Musculoskeletal: no symptoms reported Skin: no symptoms reported Psychiatric/Neurological: No Symptoms Reported Past Pwhfyxd-Aubmgd-Uahlzq Hx Patient Social History Alcohol Use: Denies Use Recreational Drug Use: No Smoking Status: Never a Smoker 2nd Hand Smoke Exposure: No Recent Foreign Travel: No Contact w/Someone Who Travel: No Recent Infectious Disease Expo: No Recent Hopitalizations: Yes (UTI 1 MONTH AGO) Physical Abuse: No Sexual Abuse: No Immunizations Up To Date Date of Pneumonia Vaccine: May 02, 2016 Date of Influenza Vaccine: May 21, 2016 Seasonal Allergies Seasonal Allergies: No Past Medical History Surgeries: Yes (Hyterectomy 1961, Knee surgery 2007) Hysterectomy, Orthopedic Respiratory: Yes (WEARS HOME O2 AT [facility]) Pneumonia, COPD Currently Using CPAP: No Currently Using BIPAP: No Cardiac: Yes Hypertension Neurological: No Neuropathy 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) 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 0.0oz. 78.061345bj; 33.8 BMI Method:Stated General Appearance: No Apparent Distress, WD/WN Eyes: Bilateral Eye Normal Inspection, Bilateral Eye PERRL, Bilateral Eye EOMI HEENT: PERRL/EOMI, TMs Normal Respiratory: No Accessory Muscle Use, No Respiratory Distress Cardiovascular: Regular Rate, Rhythm, Normal Peripheral Pulses Gastrointestinal: Normal Bowel Sounds, Non Tender, Soft Extremity: Normal Capillary Refill, Normal Inspection Neurologic/Psychiatric: Alert, Oriented x3, No Motor/Sensory Deficits Skin: Normal Color, Warm/Dry Progress/Results/Core Measures Suspected Sepsis Recent Fever Within 48 Hours: No Infection Criteria Present: None New/Unexplained Altered Menta: No Sepsis Screen: No Definite Risk SIRS Temperature:98.2 Pulse: 72 Respiratory Rate: 18 Laboratory Tests 01/07/18 17:34: White Blood Count 5.8 Blood Pressure 138 /88 Mean: 105 Laboratory Tests 01/07/18 17:34: Creatinine 0.87, Platelet Count 226, Total Bilirubin 0.5 Results/Orders Lab Results Laboratory Tests Test 01/07/18 17:23 01/07/18 17:34 01/07/18 17:35 Range/Units Glucometer 110 70-110 MG/DL White Blood Count 5.8 4.3-11.0 10^3/uL Red Blood Count 4.58 4.35-5.85 10^6/uL Hemoglobin 14.0 11.5-16.0 G/DL Hematocrit 42 35-52 % Mean Corpuscular Volume 91 80-99 FL Mean Corpuscular Hemoglobin 31 25-34 PG Mean Corpuscular Hemoglobin Concent 34 32-36 G/DL Red Cell Distribution Width 13.8 10.0-14.5 % Platelet Count 226 130-400 10^3/uL Mean Platelet Volume 9.4 7.4-10.4 FL Neutrophils (%) (Auto) 59 42-75 % Lymphocytes (%) (Auto) 18 12-44 % Monocytes (%) (Auto) 16 H 0-12 % Eosinophils (%) (Auto) 7 0-10 % Basophils (%) (Auto) 0 0-10 % Neutrophils # (Auto) 3.4 1.8-7.8 X 10^3 Lymphocytes # (Auto) 1.1 1.0-4.0 X 10^3 Monocytes # (Auto) 1.0 0.0-1.0 X 10^3 Eosinophils # (Auto) 0.4 H 0.0-0.3 10^3/uL Basophils # (Auto) 0.0 0.0-0.1 10^3/uL Sodium Level 139 135-145 MMOL/L Potassium Level 3.7 3.6-5.0 MMOL/L Chloride Level 104 98-107 MMOL/L Carbon Dioxide Level 26 21-32 MMOL/L Anion Gap 9 5-14 MMOL/L Blood Urea Nitrogen 21 H 7-18 MG/DL Creatinine 0.87 0.60-1.30 MG/DL Estimat Glomerular Filtration Rate > 60 BUN/Creatinine Ratio 24 Glucose Level 114 H 70-105 MG/DL Calcium Level 9.3 8.5-10.1 MG/DL Corrected Calcium 9.5 8.5-10.1 MG/DL Total Bilirubin 0.5 0.1-1.0 MG/DL Aspartate Amino Transf (AST/SGOT) 20 5-34 U/L Alanine Aminotransferase (ALT/SGPT) 18 0-55 U/L Alkaline Phosphatase 61 40-136 U/L Total Protein 6.9 6.4-8.2 GM/DL Albumin 3.8 3.2-4.5 GM/DL Urine Color YELLOW Urine Clarity VERY CLOUDY H Urine pH 5 5-9 Urine Specific [place] 1.025 H 1.016-1.022 Urine Protein 2+ H NEGATIVE Urine Glucose (UA) NEGATIVE NEGATIVE Urine Ketones NEGATIVE NEGATIVE Urine Nitrite NEGATIVE NEGATIVE Urine Bilirubin 1+ H NEGATIVE Urine Urobilinogen 1 NORMAL MG/DL Urine Leukocyte Esterase 3+ H NEGATIVE Urine RBC (Auto) 2+ H NEGATIVE Urine RBC 2-5 H /HPF Urine WBC 25-50 H /HPF Urine Squamous Epithelial Cells 10-25 H /HPF Urine Crystals NONE /LPF Urine Bacteria MODERATE H /HPF Urine Casts NONE /LPF Urine Mucus NEGATIVE /LPF Urine Culture Indicated YES My Orders Orders - YADY CARMICHAEL APRN Accucheck Stat ONCE (01/07/18 17:17) Cbc With Automated Diff (01/07/18 17:17) Comprehensive Metabolic Panel (01/07/18 17:17) Iv Heplock-Insert (Order) (01/07/18 17:17) Ua Culture If Indicated (01/07/18 17:17) Chest 1 View, Ap/Pa Only (01/07/18 17:20) Urine Culture (01/07/18 17:35) Ceftriaxone Injection (Rocephin Injectio (01/07/18 18:15) Vital Signs/I&O 01/07/18 17:10 Temp 98.2 Pulse 72 Resp 18 B/P (MAP) 138/88 (105) Pulse Ox 94 Capillary Refill : Less Than 3 Seconds Blood Pressure Mean: 105 Point of Care Testing Finger Stick Blood Glucose: 110 Blood Glucose Action Taken: doctor notified Diagnostic Imaging Diagonstic Imaging: Xray Comments NAME: PALOMA [facility] REC#: [id number] PT STATUS: REG ER : 1930 PHYSICIAN: YADY CARMICHAEL [employer]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 TECHNIQUE: Single frontal view of the chest. COMPARISON: 10/21/2017 FINDINGS: Left lung volume is mildly large. There is airspace opacity in the left lung base, which appears mildly increased compared to the prior exam. No pleural effusion or pneumothorax is seen. The cardiac silhouette appears stable in size. There is severe osteoarthritis in the right glenohumeral joint with multiple joint bodies. Prominent ossification is noted overlying the left scapula, which could represent a scapular lesion or calcified joint body in a recess. IMPRESSION: 1. Mildly increased airspace opacity in left lung base may represent atelectasis or infiltrate. 2. Severe right shoulder osteoarthritis. Dictated on workstation # [id number] Dict: 01/07/18 1808 Trans: 01/07/18 1812 [id number] Interpreted by: RONN GALLEGOS MD Electronically signed by: Departure Communication (Admissions) I discussed with Dr. Avina, she'll see the patient in the clinic in follow- up. Use a third-generation cephalosporin for treatment of her questionable pneumonia and urinary tract infection Impression Primary Impression: Weakness generalized Additional Impression: Urinary tract infection Disposition: 01 HOME, SELF-CARE Condition: Stable Departure-Patient Inst. Decision time for Depature: 18:10 Referrals: NAVARRO AVINA MD (PCP/Family) Primary Care Physician Patient Instructions: Urinary Tract Infection, Adult (DC) Add. Discharge Instructions: 1. Return to ER for any concerns 2. Antibiotics as directed 3. Follow up with Dr. Avina. Call tomorrow to make an appointment to be seen within 1-2 days. Return to ER for any concerns. All discharge instructions reviewed with patient and/or family. Voiced understanding. Scripts Cefdinir (Cefdinir) 300 Mg Capsule 300 MG PO BID, #14 CAP Prov: YADY CARMICHAEL APRN 01/07/18 Copy Copies To 1: NAVARRO AVINA MD, PETER J APRN Jan 07, 2018 17:35
[2018-01-07 17:45] LABS: BASOPHILS % (AUTO) 0 % (0-10); EOSINOPHILS # (AUTO) 0.4 10^3/uL (0.0-0.3); EOSINOPHILS % (AUTO) 7 % (0-10); HEMATOCRIT 42 % (35-52); LYMPHOCYTES # (AUTO) 1.1 X 10^3 (1.0-4.0); LYMPHOCYTES % (AUTO) 18 % (12-44); MEAN CORPUSCULAR HEMOGLOBIN 31 PG (25-34); MEAN CORPUSCULAR HGB CONC 34 G/DL (32-36); MEAN CORPUSCULAR VOLUME 91 FL (80-99); MEAN PLATELET VOLUME 9.4 FL (7.4-10.4); MONOCYTES % (AUTO) 16 % (0-12); NEUTROPHILS # (AUTO) 3.4 X 10^3 (1.8-7.8); NEUTROPHILS % (AUTO) 59 % (42-75); PLATELET COUNT 226 10^3/uL (130-400); RED BLOOD COUNT 4.58 10^6/uL (4.35-5.85); RED CELL DISTRIBUTION WIDTH 13.8 % (10.0-14.5); WHITE BLOOD COUNT 5.8 10^3/uL (4.3-11.0)
[2018-01-07 17:48] LABS: CLARITY,URINE VERY CLOUDY; COLOR,URINE YELLOW; GLUCOSE, URINE (UA) NEGATIVE (NEGATIVE); KETONES,URINE NEGATIVE (NEGATIVE); LEUKOCYTE ESTERASE ,URINE 3+ (NEGATIVE); NITRITE,URINE NEGATIVE (NEGATIVE); PH,URINE 5 (5-9); PROTEIN,URINE 2+ (NEGATIVE); UROBILINOGEN,URINE 1 MG/DL (NORMAL)
[2018-01-07 18:00] LABS: ALANINE AMINOTRANSFERASE 18 U/L (0-55); ALBUMIN 3.8 GM/DL (3.2-4.5); ALKALINE PHOSPHATASE 61 U/L (40-136); BILIRUBIN,TOTAL 0.5 MG/DL (0.1-1.0); BUN/CREATININE RATIO 24; CALCIUM 9.3 MG/DL (8.5-10.1); CARBON DIOXIDE 26 MMOL/L (21-32); CHLORIDE 104 MMOL/L (98-107); CREATININE SERUM 0.87 MG/DL (0.60-1.30); GFR ESTIMATED > 60; GLUCOSE 114 MG/DL (70-105); POTASSIUM 3.7 MMOL/L (3.6-5.0); SODIUM 139 MMOL/L (135-145); TOTAL PROTEIN 6.9 GM/DL (6.4-8.2)
[2018-01-07 18:03] LABS: BILIRUBIN,URINE 1+ (NEGATIVE)
[2018-01-07 18:04] LABS: BACTERIA,URINE MODERATE /HPF; WBC,URINE 25-50 /HPF
--- NOTE | 2018-01-07 18:13 | Diagnostic Imaging Report ---
PATIENT HISTORY: Diabetes, clammy feeling. TECHNIQUE: Single frontal view of the chest. COMPARISON: 10/21/2017 FINDINGS: Left lung volume is mildly large. There is airspace opacity in the left lung base, which appears mildly increased compared to the prior exam. No pleural effusion or pneumothorax is seen. The cardiac silhouette appears stable in size. There is severe osteoarthritis in the right glenohumeral joint with multiple joint bodies. Prominent ossification is noted overlying the left scapula, which could represent a scapular lesion or calcified joint body in a recess. IMPRESSION: 1. Mildly increased airspace opacity in left lung base may represent atelectasis or infiltrate. 2. Severe right shoulder osteoarthritis. Dictated by: Dictated on workstation # [id number]
[2018-01-07] MEDS ORDERED: cefTRIAXone INJECTION 1,000 MG in NS (IVPB) 50 ML IV ONE (18:15)
[2018-01-07] MEDS ORDERED: CEFD300C3 PO ×2 (18:16→18:41)
[2018-01-07 18:46] VITALS: BP 142/69
== END 2018-01-07 18:50 | disposition home or self-care (01) ==
LOC: EDUNIT# 17:00 → ER 17:01
DX: R53.1 Weakness (principal); N39.0 Urinary tract infection, site not specified; J44.9 Chronic obstructive pulmonary disease, unspecified; I10 Essential (primary) hypertension; E11.40 Type 2 diabetes mellitus with diabetic neuropathy, unspecified; M19.90 Unspecified osteoarthritis, unspecified site; Z88.1 Allergy status to other antibiotic agents; Z88.2 Allergy status to sulfonamides; Z90.710 Acquired absence of both cervix and uterus; Z85.42 Personal history of malignant neoplasm of other parts of uterus
CPT/HCPCS: 36415; 71045; 80053; 81000; 82962; 85025; 87088; 96365

== ENCOUNTER 2018-04-05 09:45 | Outpatient (RCR) | payer MEDICARE, OTHER ==
[2018-04-04] MEDS: LIDOCAINE 1% INJ 20 ML 20 ML VIAL INJ SCH (09:51)
[2018-04-04] MEDS: cefTRIAXone 1,000 MG/2.86 ml vial (IM ONLY) IM SCH (09:51)
[2018-04-04 09:55] VITALS: BP 135/69
[~2018-04-05] VITALS: Ht 157.5 cm; Wt 79.4 kg
[~2018-04-05 09:45] MED LIST changes: +LIDOCAINE PF 2% 5 ML (XYLOCAINE) VIAL INJ SCH; -LOSA50TA36 PO; +LOSA50TA7 PO; +METF-397 PO; -METF500T5 PO
[2018-04-05] MEDS: LIDOCAINE 1% INJ 20 ML 20 ML VIAL INJ SCH (10:21)
[2018-04-05] MEDS: cefTRIAXone 1,000 MG/2.86 ml vial (IM ONLY) IM SCH (10:22)
[2018-04-05 10:25] VITALS: BP 141/59
== END 2018-04-05 10:30 | disposition home or self-care (01) ==
LOC: SDC 09:45
PROVIDERS: ATTEND Family Medicine
DX: N39.0 Urinary tract infection, site not specified (principal)
CPT/HCPCS: 96372

== ENCOUNTER 2018-05-29 15:30 | Outpatient (RCR) | payer MEDICARE, OTHER ==
[~2018-05-29 15:30] MED LIST changes: -LIDOCAINE PF 2% 5 ML (XYLOCAINE) VIAL INJ SCH
== END 2018-06-18 14:34 | disposition home or self-care (01) ==
PROVIDERS: ATTEND Orthopaedic Surgery
DX: M16.11 Unilateral primary osteoarthritis, right hip (principal)

== ENCOUNTER 2019-12-28 18:19 | Emergency (ER) | payer MEDICARE, OTHER ==
[~2019-12-28] VITALS: Ht 157 cm; Wt 78.0 kg
[~2019-12-28 18:19] MED LIST changes: +LOSA50TA63 PO; -LOSA50TA7 PO; -METO-370 PO; +METO50TA7 PO
--- NOTE | 2019-12-28 18:53 | ED Integumentary General ---
General Chief Complaint: Skin/Wound Problems Stated Complaint: RASH ON CHEST Source: patient Exam Limitations: no limitations History of Present Illness Date Seen by Provider: Dec 28, 2019 Time Seen by Provider: 18:45 Initial Comments 89-year-old female who presents to the emergency room with complaints of a red raised rash on her chest wall that she has had for the past year. She reports that she's been seen by Dr. Avina numerous times, dermatology out of [place], without any improvement. She reports that she has been referred to and has an appointment next month with dermatology for this rash. She reports that nothing is changed she is warm and evaluated again. Associated Symptoms: rash Allergies and Home Medications Allergies Coded Allergies: amoxicillin (Verified Allergy, Intermediate, RASH, ITCHING, 02/28/16) ciprofloxacin (Verified Allergy, Intermediate, RASH, ITCHING, 02/28/16) Sulfa (Sulfonamide Antibiotics) (Verified Allergy, Unknown, 06/22/15) linezolid (Verified Allergy, Unknown, 11/10/16) minocycline (Verified Allergy, Unknown, 11/10/16) levofloxacin (Unverified Adverse Reaction, Mild, NAUSEA, 08/06/10) Home Medications Cefdinir 300 Mg Capsule, 300 MG PO BID . Prescribed by: YADY CARMICHAEL on 01/07/18 1841 Cefdinir 300 Mg Capsule, 300 MG PO BID Prescribed by: BROOKE RAMOS on 01/19/18 0348 Cefuroxime Axetil 250 Mg Tablet, 250 MG PO BID Prescribed by: YADY CARMICHAEL on 04/22/17 1118 Escitalopram Oxalate 10 Mg Tablet, 10 MG PO 1700, (Reported) Famotidine 20 Mg Tablet, 20 MG PO BID WITH MEALS, (Reported) Ipratropium/Albuterol Sulfate 3 Ml Ampul.neb, 3 ML IH DAILY, (Reported) L.acidoph & Paracasei,B.lactis 1 Each Capsule, 1 EACH PO TID Prescribed by: YADY CARMICHAEL on 04/22/17 111 Lactobacillus Acidophilus 1 Each Capsule, 1 EACH PO TID Prescribed by: NAVARRO AVINA on 11/13/16 0923 Losartan Potassium 50 Mg Tablet, 50 MG PO DAILY, (Reported) Metoprolol Succinate 50 Mg Tab.er.24h, 50 MG PO HS, (Reported) Ondansetron 8 Mg Tab.rapdis, 8 MG PO Q6H PRN for NAUSEA/VOMITING-1ST LINE . Prescribed by: YADY CARMICHAEL on 06/09/17 1820 Sennosides/Docusate Sodium 1 Each Tablet, 1 EA PO BID HOLD IF LOOSE STOOLS Prescribed by: NAVARRO AVINA on 11/13/16922 Umeclidinium Drake 62.5 Mcg Blst.w.dev, 0 INH IH DAILY@0800 Prescribed by: NAVARRO AVINA on 11/13/16922 Patient Home Medication List Home Medication List Reviewed: Yes Review of Systems Review of Systems Constitutional: see HPI; No chills, No fever Skin: see HPI, rash All Other Systems Reviewed Negative Unless Noted: Yes Past Gcydvvk-Xrpllk-Ebxfsq Hx Past Med/Social Hx: Reviewed Nursing Past Med/Soc Hx Patient Social History Alcohol Use: Denies Use Recreational Drug Use: No Smoking Status: Never a Smoker 2nd Hand Smoke Exposure: No Recent Foreign Travel: No Contact w/Someone Who Travel: No Recent Hopitalizations: No (UTI 1 MONTH AGO) Physical Abuse: No Sexual Abuse: No Mistreated: No Fear: No Immunizations Up To Date Date of Pneumonia Vaccine: May 02, 2016 Date of Influenza Vaccine: May 21, 2016 Seasonal Allergies Seasonal Allergies: No Past Medical History Surgeries: Yes (HYST 1961, KNEE SURGERY 2007) Hysterectomy, Orthopedic Respiratory: Yes (WEARS HOME O2 AT 2L/NC AT HS; FREQUENT PNEUMONIA) Pneumonia, COPD Currently Using CPAP: No Currently Using BIPAP: No Cardiac: Yes (LBBB) Hypertension Neurological: Yes Neuropathy 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) 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, 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 Sexually Transmitted Disease: No HIV/AIDS: No Genitourinary: Yes UTI-Chronic Gastrointestinal: No Musculoskeletal: Yes Arthritis Endocrine: Yes Diabetes, Non-Insulin dep HEENT: Yes Cataract Loss of Vision: Denies Hearing Impairment: Hard of Hearing Cancer: Yes Uterine Did You Recieve Any Treatments: Yes What Type of Treatment Did You: Surgical Intervention Psychosocial: No Integumentary: No Blood Disorders: No Family Medical History Reviewed Nursing Family Hx Hypertension Physical Exam Vital Signs Vital Signs - First Documented 12/28/19 12/28/19 18:35 20:10 Temp 36.8 Pulse 68 Resp 20 B/P (MAP) 196/88 (124) Pulse Ox 98 Capillary Refill : General Appearance: WD/WN, no apparent distress Cardiovascular: normal peripheral pulses, regular rate, rhythm, no edema, no gallop, no JVD, no murmur Respiratory: chest non-tender, lungs clear, normal breath sounds, no respiratory distress, no accessory muscle use Neurologic/Psychiatric: alert, normal mood/affect, oriented x 3 Skin: normal color, warm/dry, rash Skin Problem Location: other (upper chest wall) Skin Problem Character: erythema, rash, scales, thickening Progress/Results/Core Measures Results/Orders My Orders Orders - DESIRE GREY Diphenhydramine 2% Cream (Benadryl 2% Cr (12/28/19 19:00) Lidocaine 2% Viscous 15 Ml (Xylocaine Vi (12/28/19 19:00) Medications Given in ED Current Medications Medications Dose Ordered Sig/Lidia Route Start Time Stop Time Status Last Admin Dose Admin Diphenhydramine HCl APPLY SPARINGLY TID ONCE TOP 12/28/19 19:00 12/28/19 19:01 DC 12/28/19 19:10 30 GM Lidocaine HCl 5 ml ONCE ONCE PO 12/28/19 19:00 12/28/19 19:01 DC 12/28/19 19:10 5 ML Vital Signs/I&O 12/28/19 12/28/19 18:35 20:10 Temp 36.8 36.8 Pulse 68 65 Resp 20 17 B/P (MAP) 196/88 (124) 175/54 (124) Pulse Ox 98 Progress Progress Note : Time: 18:49 Progress Note I have seen and evaluated the patient. I have discussed the case with Dr. Avina and she recommends giving the patient a mixture of viscous lidocaine and Benadryl cream to use topically on the rash to help calm down and alleviate discomfort. The patient agrees with plan and will follow-up with Dr. Avina later this week. Was instructed to keep her appointment with for further evaluation. She agrees with plan of care and plans for discharge. Departure Impression Primary Impression: Rash Disposition: HOME, SELF-CARE Condition: Stable/Unchanged Departure-Patient Inst. Decision time for Depature: 19:41 Referrals: MIKAL GOLDBERG MD (PCP/Family) Primary Care Physician Patient Instructions: Skin Rash (DC) Add. Discharge Instructions: Call Dr. Avina's office tomorrow morning for an appointment time. Use the cream mixture that was provided as needed. Keep your appointment with [facility] as scheduled. Return back to the emergency room for worsening symptoms or concerns as needed. All discharge instructions reviewed with patient and/or family. Voiced understanding. Copy Copies To 1: NAVARRO AVINA MD, TRAVIS Dec 28, 2019 18:53
[2019-12-28] MEDS ORDERED: LIDOCAINE 2% VISCOUS 15 ML UDC PO ONE (19:00)
[2019-12-28] MEDS ORDERED: diphenhydrAMINE 2% 30 GM CR (ALLERGY CREAM) TOP ONE (19:00)
[2019-12-28 20:10] VITALS: BP 175/54
== END 2019-12-28 20:12 | disposition home or self-care (01) ==
LOC: EDUNIT# 18:19 → ER 18:21
DX: R21 Rash and other nonspecific skin eruption (principal); J44.9 Chronic obstructive pulmonary disease, unspecified; I10 Essential (primary) hypertension; Z88.1 Allergy status to other antibiotic agents; Z88.2 Allergy status to sulfonamides; Z88.8 Allergy status to other drugs, medicaments and biological substances; Z85.42 Personal history of malignant neoplasm of other parts of uterus; Z82.49 Family history of ischemic heart disease and other diseases of the circulatory system
CPT/HCPCS: 99282

== ENCOUNTER → 2021-04-18 | Outpatient (CLI) | payer MEDICARE ==
[~2021-04-18] MED LIST changes: +ESCI-2 PO; -ESCI10TA55 PO
--- NOTE | 2021-04-19 08:32 | Diagnostic Imaging Report ---
PROCEDURE: MRI right lower extremity without contrast. TECHNIQUE: Multiplanar, multisequence non contrast-enhanced MRI of the right lower extremity was accomplished. INDICATION: Ulceration of the right 2nd toe. History of diabetes. COMPARISON: None FINDINGS: No acute fracture is seen in the imaged portions of the right forefoot. There are claw toe deformities of the lesser toes, and mild lateral angulation of the 1st and 2nd toes. There is marked bone marrow edema of the 2nd toe distal phalanx, with associated T1-weighted marrow replacement. No joint effusions are seen. There is moderate soft tissue edema about the 2nd toe extending into the dorsal forefoot. There does appear to be an ulceration at the medial distal 2nd toe. No soft tissue fluid collections are seen on this noncontrast exam. There is generalized muscular atrophy. IMPRESSION: 1. Soft tissue infection and ulceration of the right 2nd toe, with osteomyelitis of the distal phalanx. Dictated by: Dictated on workstation # [id number]
== END ==
LOC: RAD 12:30
PROVIDERS: ATTEND Podiatrist Foot & Ankle Surgery
DX: S91.104A Unspecified open wound of right lesser toe(s) without damage to nail, initial encounter (principal); M86.8X8 Other osteomyelitis, other site

== ENCOUNTER 2021-06-05 11:16 | Outpatient (CLI) | payer MEDICARE ==
[~2021-06-05] VITALS: Ht 157.5 cm; Wt 78.0 kg
[2021-06-05 11:28] VITALS: BP 149/70
[2021-06-05] MEDS ORDERED: ACETAMINOPHEN 500 MG TAB (TYLENOL) PO PRN (11:45)
[2021-06-05] MEDS ORDERED: SOTROVIMAB 500 MG/NS 100 ML IVPB IV ONE ×2 (11:45)
[2021-06-05] MEDS ORDERED: ONDANSETRON 4 MG/2 ML (SDV) Z0FRAN IV PRN (11:45)
[2021-06-05] MEDS ORDERED: EPINEPHrine INJECTION 1 MG/ML AMP IM PRN (11:45)
[2021-06-05] MEDS ORDERED: diphenhydrAMINE 50 MG/ML INJ (BENADRYL) IV PRN (11:45)
[2021-06-05 13:00] VITALS: BP 134/64
== END 2021-06-05 13:39 ==
LOC: INFUSION 11:16
PROVIDERS: ATTEND Nurse Practitioner Family
DX: U07.1 COVID-19 (principal)

== ENCOUNTER 2022-02-24 08:09 | Emergency (ER) | payer MEDICARE ==
[~2022-02-24] VITALS: Ht 155 cm; Wt 72.6 kg
--- NOTE | 2022-02-24 08:32 | ED General ---
General Chief Complaint: Dizziness/Syncope Stated Complaint: DIZZY Nursing Triage Note: PT AMB TO RM 6 W C/O DIZZINESS X3-4 DAYS. PT A&OX2. Source of Information: Patient Exam Limitations: No Limitations History of Present Illness Date Seen by Provider: Feb 24, 2022 Time Seen by Provider: 08:15 Initial Comments 89-year-old female presents with her daughter, has been for dizziness. Symptoms started over the last 3 days. Talking with her daughter the patient has been having dizziness off and on for about 5 years. This has been evaluated thoroughly per her report and no cause has yet to be identified. When asked what specifically concerned about the episode today versus previous episodes the daughter stated that "she wanted to come in to be seen." The patient describes sensation of lightheadedness is relatively constant over the last 3 days. She also has a small diffuse headache described as throbbing. Her symptoms do seem to be worse when she gets up to walk. She denies any blurred or double vision. No upper or lower extremity weakness numbness or tingling no recent illnesses. Allergies and Home Medications Allergies Coded Allergies: amoxicillin (Verified Allergy, Intermediate, RASH, ITCHING, 06/05/21) ciprofloxacin (Verified Allergy, Intermediate, RASH, ITCHING, 06/05/21) Sulfa (Sulfonamide Antibiotics) (Verified Allergy, Unknown, 06/05/21) linezolid (Verified Allergy, Unknown, 06/05/21) minocycline (Verified Allergy, Unknown, 06/05/21) levofloxacin (Verified Adverse Reaction, Mild, NAUSEA, 06/05/21) Patient Home Medication List Home Medication List Reviewed: Yes Cefdinir (Cefdinir) 300 Mg Capsule, 300 MG PO BID Prescribed by: YADY CARMICHAEL on 01/07/18 1841 Cefdinir (Cefdinir) 300 Mg Capsule, 300 MG PO BID Prescribed by: BROOKE RAMOS on 01/19/18 0348 Cefuroxime Axetil (Cefuroxime) 250 Mg Tablet, 250 MG PO BID Prescribed by: YADY CARMICHAEL on 04/22/17 1118 Escitalopram Oxalate (Escitalopram Oxalate) 10 Mg Tablet, 10 MG PO 1700, (Reported) Entered as Reported by: ALICJA LOREDO on 06/23/15 0833 Famotidine (Famotidine) 20 Mg Tablet, 20 MG PO BID WITH MEALS, (Reported) Entered as Reported by: ALICJA LOREDO on 06/23/15 0833 Ipratropium/Albuterol Sulfate (Iprat-Albut 0.5-3(2.5) mg/3 ml) 3 Ml Ampul.neb, 3 ML IH DAILY, (Reported) Entered as Reported by: JOSE DALEY on 11/11/16 0938 L.acidoph & Paracasei,B.lactis (Probiotic) 1 Each Capsule, 1 EACH PO TID Prescribed by: YADY CARMICHAEL on 04/22/17 1118 Lactobacillus Acidophilus (Probiotic) 1 Each Capsule, 1 EACH PO TID Prescribed by: NAVARRO OCONNELL on 11/13/16 09 Losartan Potassium (Losartan Potassium) 50 Mg Tablet, 50 MG PO DAILY, (Reported) Entered as Reported by: ALICJA LOREDO on 06/23/15 08 Metoprolol Succinate (Metoprolol Succinate) 50 Mg Tab.er.24h, 50 MG PO HS, (Reported) Entered as Reported by: ALICJA LOREDO on 06/23/15 0833 Ondansetron (Zofran Odt) 8 Mg Tab.rapdis, 8 MG PO Q6H PRN for NAUSEA/VOMITING-1ST LINE Prescribed by: YADY CARMICHAEL on 06/09/17 1820 Sennosides/Docusate Sodium (Senna-Time S Tablet) 1 Each Tablet, 1 EA PO BID Prescribed by: NAVARRO OCONNELL on 11/13/16 09 Umeclidinium [place] (Incruse Ellipta) 62.5 Mcg Blst.w.dev, 0 INH IH DAILY@0800 Prescribed by: NAVARRO OCONNELL on 11/13/16 09 Review of Systems Review of Systems Constitutional: dizziness EENTM: no symptoms reported Respiratory: no symptoms reported Cardiovascular: no symptoms reported Gastrointestinal: no symptoms reported Genitourinary: no symptoms reported Musculoskeletal: no symptoms reported Skin: no symptoms reported Psychiatric/Neurological: No Symptoms Reported Hematologic/Lymphatic: No Symptoms Reported Immunological/Allergic: no symptoms reported Past Gjqhhgf-Rhycii-Ambyad Hx Patient Social History Tobacco Use?: No Use of E-Cig and/or Vaping dev: No Substance use?: No Alcohol Use?: No Immunizations Up To Date Influenza Vaccine Up-to-Date: No; Not Current First/Initial COVID19 Vaccinat: 2020 Second COVID19 Vaccination Red: 2020 Third COVID19 Vaccination Date: 2021 COVID19 Vaccine 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: 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 Seasonal Allergies Seasonal Allergies: No Past Medical History Surgeries: Yes (HYST 1961, KNEE SURGERY 2007) Hysterectomy, Orthopedic Respiratory: Yes (WEARS HOME O2 AT 2L/NC AT HS; FREQUENT PNEUMONIA) Pneumonia, COPD Currently Using CPAP: No Currently Using BIPAP: No Cardiac: Yes (LBBB) Hypertension Neurological: Yes Neuropathy 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) 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, 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 Sexually Transmitted Disease: No HIV/AIDS: No Genitourinary: Yes UTI-Chronic Gastrointestinal: No Musculoskeletal: Yes Arthritis Endocrine: Yes Diabetes, Non-Insulin dep HEENT: Yes Cataract Loss of Vision: Denies Hearing Impairment: Hard of Hearing Cancer: Yes Uterine Did You Recieve Any Treatments: Yes What Type of Treatment Did You: Surgical Intervention Psychosocial: No Integumentary: No Blood Disorders: No Family Medical History Reviewed Nursing Family Hx No Pertinent Family Hx, Hypertension Physical Exam Vital Signs Vital Signs - First Documented 02/24/22 08:16 Temp 36.3 Pulse 56 Resp 18 B/P (MAP) 155/66 (95) Pulse Ox 93 O2 Delivery Room Air Capillary Refill : Less Than 3 Seconds Height, Weight, BMI Height: 5'2.00" Weight: 175lbs. 0.0oz. [id number]; 30.00 BMI Method:Stated General Appearance: No Apparent Distress, WD/WN HEENT: PERRL/EOMI, TMs Normal, Normal ENT Inspection, Pharynx Normal Neck: Full Range of Motion, Normal Inspection, Non Tender, Supple Respiratory: Chest Non Tender, Lungs Clear, Normal Breath Sounds, No Accessory Muscle Use, No Respiratory Distress Cardiovascular: Regular Rate, Rhythm, No Edema, No Gallop, No JVD, No Murmur, Normal Peripheral Pulses Gastrointestinal: Normal Bowel Sounds, No Organomegaly, No Pulsatile Mass, Non Tender, Soft Extremity: Normal Capillary Refill, Normal Inspection, Normal Range of Motion, Non Tender, No Calf Tenderness Neurologic/Psychiatric: Alert, Oriented x3, No Motor/Sensory Deficits, Normal Mood/Affect, eviction specialist II-XII Norm as Tested Skin: Normal Color, Warm/Dry Lymphatic: No Adenopathy Progress/Results/Core Measures Suspected Sepsis SIRS Temperature: Pulse: 56 Respiratory Rate: 18 Laboratory Tests 02/24/22 08:30: White Blood Count 8.9 Blood Pressure 155 /66 Mean: 95 Laboratory Tests 02/24/22 08:30: Creatinine 0.83, Platelet Count 240, Total Bilirubin 0.6 Results/Orders Lab Results Laboratory Tests Test 02/24/22 08:30 Range/Units White Blood Count 8.9 4.3-11.0 10^3/uL Red Blood Count 5.05 3.80-5.11 10^6/uL Hemoglobin 15.1 11.5-16.0 g/dL Hematocrit 46 35-52 % Mean Corpuscular Volume 91 80-99 fL Mean Corpuscular Hemoglobin 30 25-34 pg Mean Corpuscular Hemoglobin Concent 33 32-36 g/dL Red Cell Distribution Width 13.2 10.0-14.5 % Platelet Count 240 130-400 10^3/uL Mean Platelet Volume 9.5 9.0-12.2 fL Immature Granulocyte % (Auto) 0 % Neutrophils (%) (Auto) 66 42-75 % Lymphocytes (%) (Auto) 23 12-44 % Monocytes (%) (Auto) 9 0-12 % Eosinophils (%) (Auto) 2 0-10 % Basophils (%) (Auto) 1 0-10 % Neutrophils # (Auto) 5.9 1.8-7.8 10^3/uL Lymphocytes # (Auto) 2.0 1.0-4.0 10^3/uL Monocytes # (Auto) 0.8 0.0-1.0 10^3/uL Eosinophils # (Auto) 0.2 0.0-0.3 10^3/uL Basophils # (Auto) 0.1 0.0-0.1 10^3/uL Immature Granulocyte # (Auto) 0.0 0.0-0.1 10^3/uL Sodium Level 140 135-145 MMOL/L Potassium Level 4.3 3.6-5.0 MMOL/L Chloride Level 106 98-107 MMOL/L Carbon Dioxide Level 19 L 21-32 MMOL/L Anion Gap 15 H 5-14 MMOL/L Blood Urea Nitrogen 16 7-18 MG/DL Creatinine 0.83 0.60-1.30 MG/DL Estimat Glomerular Filtration Rate 67 BUN/Creatinine Ratio 19 Glucose Level 140 H 70-105 MG/DL Calcium Level 9.3 8.5-10.1 MG/DL Corrected Calcium 9.3 8.5-10.1 MG/DL Total Bilirubin 0.6 0.1-1.0 MG/DL Aspartate Amino Transf (AST/SGOT) 19 5-34 U/L Alanine Aminotransferase (ALT/SGPT) 17 0-55 U/L Alkaline Phosphatase 50 40-136 U/L Total Protein 7.3 6.4-8.2 GM/DL Albumin 4.0 3.2-4.5 GM/DL My Orders Orders - ONI DE LA ROSA DO Cbc With Automated Diff (02/24/22 08:29) Comprehensive Metabolic Panel (02/24/22 08:29) Ct Head Wo (02/24/22 08:29) Vital Signs/I&O 02/24/22 08:16 Temp 36.3 Pulse 56 Resp 18 B/P (MAP) 155/66 (95) Pulse Ox 93 O2 Delivery Room Air Capillary Refill : Less Than 3 Seconds Blood Pressure Mean: 95 Diagnostic Imaging Comments [facility], [place] NAME: MARGAPALOMA J [facility] REC#: [id number] PT STATUS: REG ER : 1930 PHYSICIAN: ONI DE LA ROSA DO ADMIT DATE: 02/24/22/ER Draft Date of Exam:02/24/22 CT HEAD WO PROCEDURE: CT head without contrast. TECHNIQUE: Multiple contiguous axial images were obtained through the brain without the use of intravenous contrast. Auto Exposure Controls were utilized during the CT exam to meet ALARA standards for radiation dose reduction. INDICATION: Dizziness. EXAMINATION: CT brain without contrast 02/24/2022. FINDINGS: Axial imaging through the brain, coronal and sagittal reconstructed imaging performed. There is chronic ischemic disease in a periventricular deep white matter distribution. Age-appropriate atrophy is noted. There is no superimposed acute hemorrhage or infarct. There is no mass, mass effect or midline shift. There is no hydrocephalus. The calvarium appears intact. The paranasal sinuses and mastoid air cells appear clear. IMPRESSION: 1. No acute intracranial process. Dictated on workstation # [id number] Dict: 02/24/22 0855 Trans: 02/24/22 0858 [facility] [id number] Interpreted by: ABE STRONG MD Electronically signed by: Departure Communication (Admissions) Patient is hemodynamically stable with no focal neurologic deficits. Symptoms have been present off and on for several years with no identified cause by multiple work-ups for the same symptoms. Exam, labs, CT are reassuring today. He is discharged home in stable condition with supportive care and close follow- up. Impression Primary Impression: Light-headed feeling Disposition: 01 HOME, SELF-CARE Condition: Stable Departure-Patient Inst. Decision time for Depature: 09:17 Referrals: MIKAL GOLDBERG MD (PCP/Family) Primary Care Physician Add. Discharge Instructions: You were seen in the emergency department today for lightheadedness. No emergency condition is identified for your symptoms. I recommend you increase your fluids at home, rest as needed. Use assistive devices like your walker for ambulation. Follow-up with your primary doctor in the next 48 to 72 hours should your symptoms persist. Return to the emergency department for any severe concerns All discharge instructions reviewed with patient and/or family. Voiced understanding. Copy Copies To 1: MIKAL GOLDBERG MD, KENNETH L DO Feb 24, 2022 08:32
[2022-02-24 08:46] LABS: BASOPHILS # (AUTO) 0.1 10^3/uL (0.0-0.1); BASOPHILS % (AUTO) 1 % (0-10); EOSINOPHILS # (AUTO) 0.2 10^3/uL (0.0-0.3); EOSINOPHILS % (AUTO) 2 % (0-10); HEMATOCRIT 46 % (35-52); HEMOGLOBIN 15.1 g/dL (11.5-16.0); LYMPHOCYTES % (AUTO) 23 % (12-44); MEAN CORPUSCULAR HEMOGLOBIN 30 pg (25-34); MEAN CORPUSCULAR HGB CONC 33 g/dL (32-36); MEAN CORPUSCULAR VOLUME 91 fL (80-99); MEAN PLATELET VOLUME 9.5 fL (9.0-12.2); MONOCYTES # (AUTO) 0.8 10^3/uL (0.0-1.0); MONOCYTES % (AUTO) 9 % (0-12); NEUTROPHILS # (AUTO) 5.9 10^3/uL (1.8-7.8); NEUTROPHILS % (AUTO) 66 % (42-75); PLATELET COUNT 240 10^3/uL (130-400); WHITE BLOOD COUNT 8.9 10^3/uL (4.3-11.0)
--- NOTE | 2022-02-24 08:58 | Diagnostic Imaging Report ---
PROCEDURE: CT head without contrast. TECHNIQUE: Multiple contiguous axial images were obtained through the brain without the use of intravenous contrast. Auto Exposure Controls were utilized during the CT exam to meet ALARA standards for radiation dose reduction. INDICATION: Dizziness. EXAMINATION: CT brain without contrast 02/24/2022. FINDINGS: Axial imaging through the brain, coronal and sagittal reconstructed imaging performed. There is chronic ischemic disease in a periventricular deep white matter distribution. Age-appropriate atrophy is noted. There is no superimposed acute hemorrhage or infarct. There is no mass, mass effect or midline shift. There is no hydrocephalus. The calvarium appears intact. The paranasal sinuses and mastoid air cells appear clear. IMPRESSION: 1. No acute intracranial process. Dictated by: Dictated on workstation # [id number]
[2022-02-24 09:05] LABS: POTASSIUM 4.3 MMOL/L (3.6-5.0)
[2022-02-24 09:06] LABS: CALCIUM 9.3 MG/DL (8.5-10.1)
[2022-02-24 09:08] LABS: TOTAL PROTEIN 7.3 GM/DL (6.4-8.2)
[2022-02-24 09:09] LABS: BILIRUBIN,TOTAL 0.6 MG/DL (0.1-1.0)
[2022-02-24 09:11] LABS: CREATININE SERUM 0.83 MG/DL (0.60-1.30)
[2022-02-24 09:45] VITALS: BP 133/62
== END 2022-02-24 09:45 | disposition home or self-care (01) ==
LOC: EDUNIT# 08:09 → ER 08:11
DX: R42 Dizziness and giddiness (principal); J44.9 Chronic obstructive pulmonary disease, unspecified; Z99.81 Dependence on supplemental oxygen
CPT/HCPCS: 36415; 70450; 80053; 85025

== ENCOUNTER 2022-06-17 18:07 | Emergency (ER) | payer MEDICARE ==
[~2022-06-17] VITALS: Ht 154 cm; Wt 72.0 kg
[2022-06-17] MEDS ORDERED: TRANEXAMIC ACID 100 MG/ML 10 ML INJECTION ONE (18:26)
[2022-06-17] MEDS ORDERED: TRANEXAMIC ACID INJECTION 1,000 MG in NS (IVPB) 50 ML IV ONE (18:45)
--- NOTE | 2022-06-17 18:57 | ED General ---
General Chief Complaint: Dental Problems/Pain Stated Complaint: DENTAL PROCEDURE TODAY - WON'T STOP BLEEDING Nursing Triage Note: PT TO RM 5 PT CO OF LOTS OF BLEEDING SINCE HAVING TOOTH PULLED THIS AM. PT STATES HAS ALOT OF BLEEDING. PT DENIES BEING ON BLOOD THINNERS. Source of Information: Patient, Family, Old Records Exam Limitations: No Limitations History of Present Illness Date Seen by Provider: Jun 17, 2022 Time Seen by Provider: 18:15 Initial Comments This 89-year-old woman presents to the emergency room accompanied by family with concerns about persistent bleeding from a dental extraction site. The extraction was performed this morning. She denies any use of blood thinning medications. She is noted to be quite hypertensive on arrival with a systolic blood pressure of 202. This quickly improved with rest. She has not yet taken her metoprolol. She has been trying to stop the bleeding with gauze packing. Allergies and Home Medications Allergies Coded Allergies: amoxicillin (Verified Allergy, Intermediate, RASH, ITCHING, 06/05/21) ciprofloxacin (Verified Allergy, Intermediate, RASH, ITCHING, 06/05/21) Sulfa (Sulfonamide Antibiotics) (Verified Allergy, Unknown, 06/05/21) linezolid (Verified Allergy, Unknown, 06/05/21) minocycline (Verified Allergy, Unknown, 06/05/21) levofloxacin (Verified Adverse Reaction, Mild, NAUSEA, 06/05/21) Patient Home Medication List Home Medication List Reviewed: Yes Cefdinir (Cefdinir) 300 Mg Capsule, 300 MG PO BID Prescribed by: YADY CARMICHAEL on 01/07/18 1841 Cefdinir (Cefdinir) 300 Mg Capsule, 300 MG PO BID Prescribed by: BROOKE RAMOS on 01/19/18 0348 Cefuroxime Axetil (Cefuroxime) 250 Mg Tablet, 250 MG PO BID Prescribed by: YADY CARMICHAEL on 04/22/17 1118 Escitalopram Oxalate (Escitalopram Oxalate) 10 Mg Tablet, 10 MG PO 1700, (Reported) Entered as Reported by: ALICJA LOREDO on 06/23/15 0833 Famotidine (Famotidine) 20 Mg Tablet, 20 MG PO BID WITH MEALS, (Reported) Entered as Reported by: ALICJA LOREDO on 06/23/15 0833 Ipratropium/Albuterol Sulfate (Iprat-Albut 0.5-3(2.5) mg/3 ml) 3 Ml Ampul.neb, 3 ML IH DAILY, (Reported) Entered as Reported by: JOSE DALEY on 11/11/16 0938 L.acidoph & Paracasei,B.lactis (Probiotic) 1 Each Capsule, 1 EACH PO TID Prescribed by: YADY CARMICHAEL on 04/22/17 1118 Lactobacillus Acidophilus (Probiotic) 1 Each Capsule, 1 EACH PO TID Prescribed by: NAVARRO OCONNELL on 11/13/16 0923 Losartan Potassium (Losartan Potassium) 50 Mg Tablet, 50 MG PO DAILY, (Reported) Entered as Reported by: ALICJA LOREDO on 06/23/15 0833 Metoprolol Succinate (Metoprolol Succinate) 50 Mg Tab.er.24h, 50 MG PO HS, (Reported) Entered as Reported by: ALICJA LOREDO on 06/23/15 0833 Ondansetron (Zofran Odt) 8 Mg Tab.rapdis, 8 MG PO Q6H PRN for NAUSEA/VOMITING- 1ST LINE Prescribed by: YADY CARMICHAEL on 06/09/17 1820 Sennosides/Docusate Sodium (Senna-Time S Tablet) 1 Each Tablet, 1 EA PO BID Prescribed by: NAVARRO OCONNELL on 11/13/16 09 Umeclidinium [place] (Incruse Ellipta) 62.5 Mcg Blst.w.dev, 0 INH IH DAILY@0800 Prescribed by: NAVARRO OCONNELL on 11/13/16 09 Review of Systems Review of Systems Constitutional: no symptoms reported EENTM: see HPI Respiratory: no symptoms reported Cardiovascular: see HPI Gastrointestinal: no symptoms reported Psychiatric/Neurological: No Symptoms Reported Hematologic/Lymphatic: See HPI Past Zynhbwr-Mcvwtp-Djdoad Hx Patient Social History Tobacco Use?: No Substance use?: No Alcohol Use?: No Pt feels they are or have been: No Immunizations Up To Date Influenza Vaccine Up-to-Date: No; Not Current First/Initial COVID19 Vaccinat: 2020 Second COVID19 Vaccination Red: 2020 Third COVID19 Vaccination Date: 2021 Seasonal Allergies Seasonal Allergies: No Past Medical History Surgeries: Yes (HYST 1961, KNEE SURGERY 2007) Hysterectomy, Orthopedic Respiratory: Yes (WEARS HOME O2 AT 2L/NC AT HS; FREQUENT PNEUMONIA) Pneumonia, COPD Currently Using CPAP: No Currently Using BIPAP: No Cardiac: Yes (LBBB) Hypertension Neurological: Yes Neuropathy 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) 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, 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 Sexually Transmitted Disease: No HIV/AIDS: No Genitourinary: Yes UTI-Chronic Gastrointestinal: No Musculoskeletal: Yes Arthritis Endocrine: Yes Diabetes, Non-Insulin dep HEENT: Yes Cataract Loss of Vision: Denies Hearing Impairment: Hard of Hearing Cancer: Yes Uterine Did You Recieve Any Treatments: Yes What Type of Treatment Did You: Surgical Intervention Psychosocial: No Integumentary: No Blood Disorders: No Family Medical History No Pertinent Family Hx, Hypertension Physical Exam Vital Signs Vital Signs - First Documented 06/17/22 06/17/22 18:20 18:28 Temp 36.9 Pulse 67 Resp 18 B/P (MAP) 202/78 (119) Pulse Ox 92 O2 Delivery Nasal Cannula O2 Flow Rate 2.00 FiO2 94 Capillary Refill : Less Than 3 Seconds Height, Weight, BMI Height: 5'2.00" Weight: 175lbs. 0.0oz. [id number]; 30.00 BMI Method:Stated General Appearance: No Apparent Distress, WD/WN HEENT: PERRL/EOMI, Normal ENT Inspection, Other (Bleeding from a socket in the right upper mouth where there was dental extraction earlier today. There is clot formation in the socket with active bleeding around the clot.) Neck: Normal Inspection Respiratory: Lungs Clear, Normal Breath Sounds, No Accessory Muscle Use Cardiovascular: No Edema, No Murmur, Bradycardia Neurologic/Psychiatric: Alert, Oriented x3, No Motor/Sensory Deficits, Normal Mood/Affect Skin: Normal Color, Warm/Dry Progress/Results/Core Measures Suspected Sepsis SIRS Temperature: Pulse: 67 Respiratory Rate: 18 Blood Pressure 202 /78 Mean: 119 Results/Orders My Orders Orders - DARIUS PRYOR MD Tranexamic Acid Injection (Cyklokapron I (06/17/22 18:26) Tranexamic Acid Injection (Cyklokapron I (06/17/22 18:45) Medications Given in ED Current Medications Medications Dose Ordered Sig/Lidia Route Start Time Stop Time Status Last Admin Dose Admin Tranexamic Acid 1000 mg/Sodium Chloride 60 ml @ 330 mls/hr ONCE ONCE IV 06/17/22 18:45 06/17/22 18:55 DC 06/17/22 18:30 330 MLS/HR Vital Signs/I&O 06/17/22 06/17/22 06/17/22 18:20 18:28 20:28 Temp 36.9 36.0 Pulse 67 53 Resp 18 16 B/P (MAP) 202/78 (119) 142/52 Pulse Ox 92 94 98 O2 Delivery Nasal Cannula Nasal Cannula O2 Flow Rate 2.00 2.00 FiO2 94 Capillary Refill : Less Than 3 Seconds Blood Pressure Mean: 119 Progress Note #1: Time: 18:52 Progress Note Patient was initially quite hypertensive on arrival but blood pressure has improved significantly to systolic 140 with rest alone. Her gauze was removed on arrival and a gauze rolled to fit between the gap in her teeth was placed along with a bulky gauze on top. Patient was instructed to bite down on this gauze packing. Bleeding has since stopped. During repeat examination the gauze roll was replaced with a new gauze moistened with lidocaine with epinephrine and tranexamic acid. She was also provided with a local injection of lidocaine with epinephrine lateral to the tooth socket to help with vasoconstriction. Approximately 0.5 mL was injected. Patient is taking metoprolol and has not yet had her evening dose. Heart rate has been in the 50s and 60s. We have discussed my concerns about bradycardia with use of metoprolol. She does admit to occasionally being lightheaded upon standing on metoprolol. Progress Note #2: Progress Note Patient was monitored for about 2 hours. She achieved good hemostasis with the treatment as described above. Blood pressure trended down nicely on its own without acute treatment. I did advise her to avoid using metoprolol at this time due to her normal blood pressure and present bradycardia. She did admit to some occasional dizziness. I have strongly encouraged her and her family to discuss blood pressure management with her primary care provider tomorrow. See discharge instructions for further discussion. Patient was supplied with 4 gauze pads that were lightly moistened with lidocaine with epinephrine and tranexamic acid. Specific instructions on how to pack the gap in her teeth were provided. Departure Impression Primary Impression: Surgical wound hemorrhage after dental procedure Additional Impressions: Hypertension Qualified Codes: I10 - Essential (primary) hypertension Lightheaded Bradycardia Disposition: 01 HOME, SELF-CARE Condition: Improved Departure-Patient Inst. Decision time for Depature: 20:01 Referrals: NAVARRO OCONNELL MD (PCP/Family) Primary Care Physician Patient Instructions: Bradycardia Add. Discharge Instructions: Keep your head elevated through the night to reduce risk of bleeding. You have a large clot that has developed over the socket of the extracted tooth. Try to leave that clot in place. For the next 24 hours consume only soft and liquid foods so that you do not have to chew. Avoid hot or carbonated liquids that are more likely to disrupt the clot. Leave the packing in place for the next couple of hours. If bleeding resumes, take one of the gauze pads moistened with tranexamic acid and lidocaine/epinephrine, fold in half, and roll it tight. Use gloves during this process or wash hands immediately afterward. Place that gauze roll in the gap between the teeth where the tooth was extracted. Then take a second gauze pad and fold in quarters and place it over the top of the role. Bite down to apply gentle pressure. If this does not resolve the bleeding within 15 minutes, return to the emergency room. Please notify your dentist first thing in the morning of your bleeding complications. Because your blood pressure is in the low normal range at this time and your heart rate is low, do NOT take metoprolol (Toprol-XL) tonight. Contact your primary care provider first thing tomorrow morning for further instructions. You may read this portion of your discharge instructions directly to the clinic staff when you call. If there is any doubt or you are unable to contact the doctors office, you may try stopping in to have your blood pressure and heart rate checked again. When your blood pressure is checked, make sure you have been at rest for several minutes after arriving before the blood pressure is checked. Do not fall asleep with medicated gauze pads on your mouth. Call with questions or concerns, and return to the ER if you have worsening symptoms despite following these instructions. All discharge instructions reviewed with patient and/or family. Voiced understanding. Copy Copies To 1: NAVARRO OCONNELL MD, JOSHUA T MD Jun 17, 2022 18:57
[2022-06-17 20:28] VITALS: BP 142/52
== END 2022-06-17 20:33 | disposition home or self-care (01) ==
LOC: EDUNIT# 18:07 → ER 18:09
DX: K91.840 Postprocedural hemorrhage of a digestive system organ or structure following a digestive system procedure (principal); I10 Essential (primary) hypertension